=== PATIENT | female | born 1975 | race African-American/Black ===

== ENCOUNTER 2016-08-25 17:05 | Inpatient (IN) | payer OTHER ==
[~2016-08-25] VITALS: Ht 162.6 cm; Wt 61.5 kg
[2016-08-25 17:05] VITALS: BP 138/82; PULSE 128; RESP 22; TEMP 99.8; O2SAT 97
[2016-08-25] MEDS ORDERED: ONDANSETRON HCL 4 MG/2 ML VIAL IV PUSH ONE (17:15)
[2016-08-25] MEDS ORDERED: MORPHINE SULFATE 4 MG/ML INJ IV PUSH ONE ×2 (17:15→19:15)
[2016-08-25] MEDS ORDERED: AZITHROMYCIN INJ 500 MG in SODIUM CHLOR 0.9% 250 ML INJ 250 ML IV STA (17:16)
[2016-08-25] MEDS ORDERED: cefTRIAXone INJ 2,000 MG in SODIUM CHLORIDE 0.9% INJ 100 ML IV STA (17:16)
[2016-08-25] MEDS ORDERED: SODIUM CHLOR 0.9% 1000 ML INJ 1,000 ML IV SCH (17:17)
--- NOTE | 2016-08-25 17:32 | PD ---
HPI Chief Complaint: Chest Pain Time Seen by Provider: 17:27 Travel History International Travel<30 days: No Contact w/Intl Traveler<30days: No Traveled to known affect area: No History of Present Illness HPI 41-year-old female that presents to the ED for evaluation of severe right-sided chest pain and shortness of breath. Patient has a chronic history of HIV and has a CD4 count per patient in the 350s. Per patient she was diagnosed with pneumonia about a month ago with good results but she still is that the pneumonia is coming back she's been having runny nose and congestion for the past couple of days. Per patient today she was having body aches all over but her right-sided chest hurting more severely as the day progressed. For the past couple hours the pain has been severe which prompted her to call the ambulance. Per patient she was recently diagnosed with stage I lung cancer on that same side. Per patient she feels like she has pressure on her chest. She denies any fevers but states having some chills and sweats as well as weakness today. She's been drinking lots of water. She states been compliant with her medications include HIV medications. Per patient she has not undergone any chemotherapy or radiation and she has an appointment with the cardiothoracic surgeon to get the cancer removed next week. She states that her pain currently 7 out of 10. Gets worse with deep breaths. Nothing seems to be making better. Per patient she feels short of breath because of the pain. Denies any radiation the pain. Nausea or vomiting. No abdominal pain. PFSH Past Medical History Cancer: Yes Immune Disorder: Yes (HIV) ?: Unknown Social History Alcohol Use: No Tobacco Use: Yes Substance Use: No Allergies-Medications (Allergen,Severity, Reaction): Coded Allergies: Codeine (Verified Allergy, Intermediate, 08/25/16) nausea Review of Systems General / Constitutional: Positive: Chills, No: Fever, Weight Gain, Weight Loss, Other Eyes: No: Diploplia, Blurred Vision, Photophobia, Drainage, Redness, Foreign Body Sensation, Pain, Tearing, Blind Spots, Visual changes, Blindness, Other HENT: Positive: Sore Throat, Rhinitis, Congestion, No: Headaches, Vertigo, Lightheadedness, Rhinorrhea, Nosebleed, Neck Stiffness, Neck Pain, Masses, Gingival Bleeding, Dental Difficulties, Ear Discharge, Earache, Other Cardiovascular: Positive: Chest Pain or Discomfort, Tachycardia, No: Palpitations, Irregular Rhythm, Diaphoresis, Syncope, Dyspnea on exertion, Varicosities, Edema, Cyanosis, Varicosities, Phlebitis, Claudication, Other Respiratory: Positive: Cough, Shortness of Breath, Wheezing, No: Sneezing, Orthopnea, Hemoptysis, Stridor, Night Sweats, Pleuritic Pain, Other Gastrointestinal: No: Nausea, Vomiting, Diarrhea, Abdominal Pain, Hematemesis, Hematochezia, Constipation, Changes in Bowel Habits, Indigestion, Dysphagia, Loss of Appetite, Other Genitourinary: No: Urgency, Frequency, Dysuria, Nocturia, Hematuria, Decreased Urinary Output, Oliguria, Hesitancy, Dribbling, Incontinence, Pelvic Pain, Flank Pain, Dyspareunia, Discharge, Dysmenorrhea, Menorrhagia, Metorrhagia, Vaginal Bleeding, Other Musculoskeletal: Positive: Myalgias, Pain, No: Arthralgias, Limited ROM, Weakness, Cramping, Edema, Atrophy, Other Skin: No Rash, No Itching, No Dryness, No Lumps, No Hives, No Change in Pigmentation, No Change in nails, No Alopecia, No Lesions, No Breast Lumps, No Breast Tenderness, No Breast Swelling, No Other Neurologic: No: Weakness, Dizziness, Syncope, Focal Abnormalities, Coordination Problem, Tremor, Ataxia, Headache, Change in Mentation, Slurred Speech, Paresthesia, Incontinence, Seizures, Sensory Disturbance, Other Psychiatric: No: Anxiety, Depression, Suicidal Ideations, Disorder of Thought, Mood Disorder, Substance Abuse, Homicidal Ideation, Other Endocrine: No: Heat Intolerance, Cold Intolerance, Polyuria, Polydipsia, Other Hematologic/Lymphatic: No: Easy Bruising, Lymph Node Enlargement, Other Physical Exam Narrative GENERAL: SKIN: Warm and dry. HEAD: Atraumatic. Normocephalic. EYES: Pupils equal and round. No scleral icterus. No injection or drainage. ENT: No nasal bleeding or discharge. Mucous membranes pink and moist. Tongue is midline. No uvula deviation. NECK: Trachea midline. No JVD. CARDIOVASCULAR: Regular rate and rhythm. No murmurs, S3, S4. RESPIRATORY: No accessory muscle use. Clear to auscultation. Breath sounds equal bilaterally. GASTROINTESTINAL: Abdomen soft, non-tender, nondistended. Hepatic and splenic margins not palpable. MUSCULOSKELETAL: Extremities without clubbing, cyanosis, or edema. No obvious deformities. Full range of motion of the upper and lower extremities bilaterally with 2+ pulses. No lumbar, thoracic, cervical spine tenderness to palpation. NEUROLOGICAL: Awake and alert. No obvious cranial nerve deficits. Motor grossly within normal limits. Five out of 5 muscle strength in the arms and legs. Normal speech. PSYCHIATRIC: Appropriate mood and affect; insight and judgment normal. Data Data Last Documented VS Vital Signs Date Time Temp Pulse Resp B/P Pulse Ox O2 Delivery O2 Flow Rate FiO2 08/25/16 17:37 120 16 127/74 97 08/25/16 17:05 99.8 08/25/16 17:05 Room Air Orders Complete Blood Count With Diff (08/25/16 17:09) Basic Metabolic Panel (Bmp) (08/25/16 17:09) Ckmb (Isoenzyme) Profile (08/25/16 17:09) Troponin I (08/25/16 17:09) Prothrombin Time / Inr (Pt) (08/25/16 17:09) Act Partial Throm Time (Ptt) (08/25/16 17:09) Blood Culture (08/25/16 17:09) Magnesium (Mg) (08/25/16 17:09) Thyroid Stimulating Hormone (08/25/16 17:09) Chest, Single Ap (08/25/16 17:09) Iv Access Insert/Monitor (08/25/16 17:09) Ecg Monitoring (08/25/16 17:09) Oximetry (08/25/16 17:09) Ct Pulmonary Angiogram (08/25/16 ) Lactic Acid (08/25/16 17:11) Morphine Inj (Morphine Inj) (08/25/16 17:15) Ondansetron Inj (Zofran Inj) (08/25/16 17:15) Sputum Culture And Gram Stain (08/25/16 17:16) Ceftriaxone Inj (Rocephin Inj) (08/25/16 17:16) Azithromycin Inj (Zithromax Inj) (08/25/16 17:16) Sodium Chlor 0.9% 1000 Ml Inj (Ns 1000 M (08/25/16 17:17) Iohexol 350 Inj (Omnipaque 350 Inj) (08/25/16 18:08) Labs Laboratory Tests Test 08/25/16 08/25/16 17:15 17:20 White Blood Count 12.8 TH/MM3 Red Blood Count 4.04 MIL/MM3 Hemoglobin 14.3 GM/DL Hematocrit 41.3 % Mean Corpuscular Volume 102.2 FL Mean Corpuscular Hemoglobin 35.4 PG Mean Corpuscular Hemoglobin 34.6 % Concent Red Cell Distribution Width 16.5 % Platelet Count 176 TH/MM3 Mean Platelet Volume 8.1 FL Neutrophils (%) (Auto) 83.4 % Lymphocytes (%) (Auto) 13.4 % Monocytes (%) (Auto) 2.6 % Eosinophils (%) (Auto) 0.3 % Basophils (%) (Auto) 0.3 % Neutrophils # (Auto) 10.7 TH/MM3 Lymphocytes # (Auto) 1.7 TH/MM3 Monocytes # (Auto) 0.3 TH/MM3 Eosinophils # (Auto) 0.0 TH/MM3 Basophils # (Auto) 0.0 TH/MM3 CBC Comment DIFF FINAL Differential Comment Prothrombin Time 11.1 SEC Prothromb Time International 1.0 RATIO Ratio Activated Partial 23.6 SEC Thromboplast Time Sodium Level 134 MEQ/L Potassium Level 4.1 MEQ/L Chloride Level 99 MEQ/L Carbon Dioxide Level 27.0 MEQ/L Anion Gap 8 MEQ/L Blood Urea Nitrogen 11 MG/DL Creatinine 0.80 MG/DL Estimat Glomerular Filtration 95 ML/MIN Rate Random Glucose 84 MG/DL Calcium Level 8.6 MG/DL Magnesium Level 1.6 MG/DL Total Creatine Kinase 39 U/L Troponin I LESS THAN 0.02 NG/ML Thyroid Stimulating Hormone 1.260 uIU/ML 3rd Gen Lactic Acid Level 1.4 mmol/L [facility] Medical Decision Making Medical Screen Exam Complete: Yes Emergency Medical Condition: Yes Medical Record Reviewed: Yes Interpretation(s) CBC & BMP Diagram 08/25/16 17:[address] Angiography 08/25/16 0000 Signed Impressions: Service Date/Time: Thursday, August 25, 2016 18:01 - CONCLUSION: Dense consolidation in the right upper lobe characteristic of pneumonitis. Rounded pneumonia versus mass in the right lower lobe measuring 18 mm. No evidence of pulmonary embolism. Hu Seaman MD Troponin negative. EKG shows sinus tachycardia but no sign of acute ischemia or arrhythmia read by me and attending. Differential Diagnosis Chest pain versus pneumonia versus PE versus cancer pain versus sepsis versus STEMI versus an STEMI Narrative Course 41-year-old female that presents to the ED for evaluation of severe right-sided chest pain. Patient was properly examined and was found to have signs and symptoms consistent with appears to be chest pain. Concern for PE secondary to patient's history as well as sepsis from pneumonia. Recommendation at this time is for labs and imaging. Patient was given IV morphine and Zofran for pain. My attending Dr. Cazares evaluated the patient with me and agrees with plan. Labs and imaging show pneumonia. Patient will be admitted to the resident team. My attending spoke with residents who agreed to admission. Sepsis Criteria SIRS Criteria (2 or more): Heart rate over 90, WBC > 01529, < 4000 or > 10% bands Sepsis Criteria (SIRS+source): Infect source susp/known Criteria Outcome: Meets sepsis criteria Diagnosis Primary Impression: Pneumonia Qualified Code: J18.1 - Pneumonia of right middle lobe due to infectious organism Additional Impression: Sepsis Qualified Code: A41.9 - Sepsis, due to unspecified organism Admitting Information Admitting Physician Requests: Admit Alexy Rose Aug 25, 2016 17:32
[2016-08-25 17:37] VITALS: BP 127/74; PULSE 120; RESP 16; O2SAT 97
[2016-08-25 17:38] LABS: AUTOMATED NEUTROPHIL # 10.7 TH/MM3 (1.8-7.7); BASOPHIL % 0.3 % (0.0-2.0); EOSINOPHIL % 0.3 % (0.0-4.0); HEMATOCRIT 41.3 % (35.0-46.0); HEMO FLAGS DIFF FINAL; LYMPH % 13.4 % (9.0-44.0); LYMPHOCYTE # 1.7 TH/MM3 (1.0-4.8); MEAN CELL VOLUME 102.2 FL (80.0-100.0); MEAN CORPUSCULAR HEMOGLOBIN 35.4 PG (27.0-34.0); MEAN CORPUSCULAR HGB CONC 34.6 % (32.0-36.0); MONO % 2.6 % (0.0-8.0); NEUT % 83.4 % (16.0-70.0); PLATELET COUNT 176 TH/MM3 (150-450); RED BLOOD COUNT 4.04 MIL/MM3 (4.00-5.30); RED CELL DISTRIBUTION WIDTH 16.5 % (11.6-17.2); WHITE BLOOD COUNT 12.8 TH/MM3 (4.0-11.0)
[2016-08-25 17:48] LABS: APTT (PATIENT) 23.6 SEC (24.3-30.1); PROTHROMBIN TIME - PATIENT 11.1 SEC (9.8-11.6)
[2016-08-25 17:52] LABS: ANION GAP 8 MEQ/L (5-15); BLOOD UREA NITROGEN 11 MG/DL (7-18); CHLORIDE 99 MEQ/L (98-107); GLOMERULAR FILTRATION RATE 95 ML/MIN (>89); MAGNESIUM 1.6 MG/DL (1.5-2.5); POTASSIUM 4.1 MEQ/L (3.5-5.1); SODIUM (NA) 134 MEQ/L (136-145)
--- NOTE | 2016-08-25 17:54 | RADRPT ---
EXAM DATE/TIME: 08/25/2016 17:16 [facility] COMPARISON: No previous studies available for comparison. INDICATIONS : Chest pain starting today MEDICAL HISTORY : Carcinoma, lung. SURGICAL HISTORY : None. ENCOUNTER: Initial ACUITY: 1 day PAIN SCORE: 10/10 LOCATION: Center of chest FINDINGS: Study is abnormal. There is a wedge-shaped area of consolidation laterally in the right lung. The le ft lung is clear. Heart and pulmonary vascularity are normal. Portions of the bony skeleton visualiz ed are unremarkable. CONCLUSION: Abnormal chest as described above. Ac Maguire MD FACR on August 25, 2016 at 17:47 Board Certified Radiologist. This report was verified electronically.
--- NOTE | 2016-08-25 17:54 | PD ---
Data Data Last Documented VS Vital Signs Date Time Temp Pulse Resp B/P Pulse Ox O2 Delivery O2 Flow Rate FiO2 08/25/16 17:37 120 16 127/74 97 08/25/16 17:05 99.8 08/25/16 17:05 Room Air Orders Complete Blood Count With Diff (08/25/16 17:09) Basic Metabolic Panel (Bmp) (08/25/16 17:09) Ckmb (Isoenzyme) Profile (08/25/16 17:09) Troponin I (08/25/16 17:09) Prothrombin Time / Inr (Pt) (08/25/16 17:09) Act Partial Throm Time (Ptt) (08/25/16 17:09) Blood Culture (08/25/16 17:09) Magnesium (Mg) (08/25/16 17:09) Thyroid Stimulating Hormone (08/25/16 17:09) Chest, Single Ap (08/25/16 17:09) Iv Access Insert/Monitor (08/25/16 17:09) Ecg Monitoring (08/25/16 17:09) Oximetry (08/25/16 17:09) Ct Pulmonary Angiogram (08/25/16 ) Lactic Acid (08/25/16 17:11) Morphine Inj (Morphine Inj) (08/25/16 17:15) Ondansetron Inj (Zofran Inj) (08/25/16 17:15) Sputum Culture And Gram Stain (08/25/16 17:16) Ceftriaxone Inj (Rocephin Inj) (08/25/16 17:16) Azithromycin Inj (Zithromax Inj) (08/25/16 17:16) Sodium Chlor 0.9% 1000 Ml Inj (Ns 1000 M (08/25/16 17:17) Iohexol 350 Inj (Omnipaque 350 Inj) (08/25/16 18:08) Labs Laboratory Tests Test 08/25/16 08/25/16 17:15 17:20 White Blood Count 12.8 TH/MM3 Red Blood Count 4.04 MIL/MM3 Hemoglobin 14.3 GM/DL Hematocrit 41.3 % Mean Corpuscular Volume 102.2 FL Mean Corpuscular Hemoglobin 35.4 PG Mean Corpuscular Hemoglobin 34.6 % Concent Red Cell Distribution Width 16.5 % Platelet Count 176 TH/MM3 Mean Platelet Volume 8.1 FL Neutrophils (%) (Auto) 83.4 % Lymphocytes (%) (Auto) 13.4 % Monocytes (%) (Auto) 2.6 % Eosinophils (%) (Auto) 0.3 % Basophils (%) (Auto) 0.3 % Neutrophils # (Auto) 10.7 TH/MM3 Lymphocytes # (Auto) 1.7 TH/MM3 Monocytes # (Auto) 0.3 TH/MM3 Eosinophils # (Auto) 0.0 TH/MM3 Basophils # (Auto) 0.0 TH/MM3 CBC Comment DIFF FINAL Differential Comment Prothrombin Time 11.1 SEC Prothromb Time International 1.0 RATIO Ratio Activated Partial 23.6 SEC Thromboplast Time Sodium Level 134 MEQ/L Potassium Level 4.1 MEQ/L Chloride Level 99 MEQ/L Carbon Dioxide Level 27.0 MEQ/L Anion Gap 8 MEQ/L Blood Urea Nitrogen 11 MG/DL Creatinine 0.80 MG/DL Estimat Glomerular Filtration 95 ML/MIN Rate Random Glucose 84 MG/DL Calcium Level 8.6 MG/DL Magnesium Level 1.6 MG/DL Total Creatine Kinase 39 U/L Troponin I LESS THAN 0.02 NG/ML Thyroid Stimulating Hormone 1.260 uIU/ML 3rd Gen Lactic Acid Level 1.4 mmol/L MDM Supervised Visit with RADHA: Yes Narrative Course I, Dr. Villa, have reviewed the advance practice practioner's documentation and am in agreement, met with the patient face to face, made the diagnosis, and the medical decision making was done by me. *My assessment and Findings: 41-year-old female with history of HIV last CD4 count in the 350s here with complaint of increasing cough, cold, chest congestion and right sided chest pain. Patient was apparently diagnosed with pneumonia approximately one month ago and recently diagnosed with lung cancer on the right side as well. She notes a pressure, sharp pain in the right side of the chest worse with movement or deep inspiration. Her cough has been more productive but no documented fevers. She has not yet undergone any chemotherapy or radiation. Patient is afebrile here but is tachycardic in the 120s to 130s, slightly tachypneic with coarse breath sounds on both sides, harsh cough productive of clear sputum. Regular rhythm. Differential includes pneumonia, sepsis, pulmonary embolism, pleurisy, lung cancer, ACS,. Patient placed on monitor, IV established and blood obtained. Given fluids and empirically treated with Rocephin and is a throat for pulmonary source sepsis. Portable chest x-ray obtained that by my read shows right sided mass and/or pneumonia. I do not have any old chest x-ray on file with which to compare. Laboratory workup notable for WBC 17.8. CT pulmonary exam showed pneumonia. Rounded pneumonia versus mass in the right lower lobe measuring 18 mm. I suspect that this is her likely underlying lung cancer. Think fully no evidence of PE. Patient will be admitted for further management. Critical Care Narrative Aggregate critical care time was 35 minutes. Time to perform other separately billable procedures was not included in the critical care time. My time did not include minutes spent treating any other patients simultaneously or on activities that did not directly contribute to the patient's treatment. The services I provided to this patient were to treat and/or prevent clinically significant deterioration that could result in: Cardiopulmonary decompensation, , disability I provided critical care services requiring my management, as noted below: Chart data review, documentation time, medication orders and management, vital sign assessments/reviewing monitor data, ordering and reviewing lab tests, ordering and interpreting/reviewing x-rays and diagnostic studies, care of the patient and discussion of the patient with the admitting physicians. Sepsis Criteria SIRS Criteria (2 or more): Heart rate over 90, RR > 20 or PaCO2 < 32, WBC > 96032, < 4000 or > 10% bands Sepsis Criteria (SIRS+source): Infect source susp/known Criteria Outcome: Meets SIRS criteria, Meets sepsis criteria Diagnosis Primary Impression: Sepsis Qualified Code: A41.9 - Sepsis, due to unspecified organism Additional Impression: Pneumonia Qualified Code: J18.1 - Pneumonia of right middle lobe due to infectious organism Admitting Information Admitting Physician Requests: Admit Shaniqua Villa MD Aug 25, 2016 17:54
[2016-08-25] MEDS ORDERED: IOHEXOL 350 MG/ML 10 ML VIAL (for RAD DIAG) IV ONE (18:08)
[2016-08-25 18:15] LABS: CREATINE KINASE 39 U/L (26-192)
--- NOTE | 2016-08-25 18:33 | RADRPT ---
EXAM DATE/TIME: 08/25/2016 18:01 [facility] COMPARISON: No previous studies available for comparison. INDICATIONS : Right sided chest pain with shortness of breath. IV CONTRAST: 75 cc Omnipaque 350 (iohexol) IV RADIATION DOSE: CTDIvol (mGy) MEDICAL HISTORY : HIV. Hypertension. Carcinoma, lung. SURGICAL HISTORY : None. ENCOUNTER: Initial ACUITY: 2 days PAIN SCALE: 9/10 LOCATION: Right chest Patient experienced a reaction consisting of . TECHNIQUE: Volumetric scanning of the chest was performed using a pulmonary embolism protocol MIP images were re constructed. Using automated exposure control and adjustment of the mA and/or kV according to patien t size, radiation dose was kept as low as reasonably achievable to obtain optimal diagnostic quality images. FINDINGS: PULMONARY ARTERIES: No filling defects are seen in the pulmonary arteries through the segmental level. LUNGS: Consolidating airspace disease is identified in the inferior one third of the right upper lobe. A mas slike rounded area consolidation measuring 18 mm is identified in the mid right lower lobe. The left lung is clear.PLEURAE: There is no pleural thickening or pleural effusion. MEDIASTINUM: There is good visualization of the great vessels of the middle mediastinum. No evidence of mediastin al or hilar adenopathy/mass. MUSCULOSKELETAL: Within normal limits for patient age. MISCELLANEOUS: The visualized upper abdominal organs demonstrate no acute abnormality. CONCLUSION: Dense consolidation in the right upper lobe characteristic of pneumonitis. Rounded pneumonia versus mass in the right lower lobe measuring 18 mm. No evidence of pulmonary embolism. Hu Seaman MD on August 25, 2016 at 18:27 Board Certified Radiologist. This report was verified electronically.
[2016-08-25 18:48] VITALS: BP 135/78; PULSE 125; RESP 18; O2SAT 95
[2016-08-25 20:00] VITALS: BP 126/68; PULSE 124; RESP 18; O2SAT 96
--- NOTE | 2016-08-25 20:16 | HHI.HP ---
[facility] Service Family Medicine Primary Care Physician Jaime Perales MD Admission Diagnosis sepsis, pneumonia Diagnoses: International Travel<30 Days: No Contact w/Intl Traveler<30days: No Known Affected Area: No History of Present Illness 41 year old female with PMH significant for HIV diagnosed in 1996 with most recent CD4 count per patient 383 drawn about one month ago, patient presented to the ED due to severe right-sided chest pain and shortness of breath. She states about four days ago her symptoms started with head and nasal congestion as well as a cough productive of yellow sputum. She states her symptoms have progressively worsened since then with her chest pain being significant enough prompting her to call an ambulance earlier today. She does report a small amount of hemoptysis while here in the ED, denies any hemoptysis prior to this. Reports a subjective low-grade fever also here in ED, however denies any fevers earlier in the week. Her chest pain she states is both right lower and right upper chest, about a 7/10, also reports right upper back pain, chest pain was pleuritic but improving now. Denies left-sided chest pain. Denies palpitations or diaphoresis or pain radiating elsewhere. Denies abdominal pain, no N/V or diarrhea. Denies hematuria or visible blood in stool. Dr. Muñoz is her infectious disease physician. She states she takes Genvoya and Prezista each night. She also follows with Dr. Florez, pulmonology. She was treated by Dr. Florez for pneumonia about one month ago however she states she never fully recovered from this. She states she was found to have stage I lung cancer while being worked up for the pneumonia last month. She is now following with Dr. Colmenares her oncologist after her lung mass was found. She has not yet started chemotherapy or radiation therapy. Review of Systems Constitutional: COMPLAINS OF: Fever, DENIES: Chills, Change in appetite, Night Sweats Eyes: DENIES: Blurred vision, Double Vision Ears, nose, mouth, throat: COMPLAINS OF: Nasal discharge, Running Nose Respiratory: COMPLAINS OF: Cough, Hemoptysis, Sputum production, Shortness of breath Cardiovascular: COMPLAINS OF: Chest pain, DENIES: Palpitations, Lower Extremity Edema Gastrointestinal: DENIES: Abdominal pain, Black stools, Bloody stools, Constipation, Diarrhea, Nausea, Vomiting Genitourinary: DENIES: Hematuria, Dysuria Integumentary: DENIES: Rash Neurologic: DENIES: Headache Past Family Social History Past Medical History HIV diagnosed in 1996 Past Surgical History 2 previous C-sections Allergies: Coded Allergies: Codeine (Verified Allergy, Intermediate, 08/25/16) nausea Family History Mother: alive, ~60yo, HTN Father: alive, late 60s, prostate cancer Social History Tobacco: ~3 cigarettes daily for many years Etoh: denies Illicit drug use: denies Lives in [facility] with son Physical Exam Vital Signs Vital Signs Date Time Temp Pulse Resp B/P Pulse Ox O2 Delivery O2 Flow Rate FiO2 08/25/16 18:48 125 18 135/78 95 08/25/16 17:37 120 16 127/74 97 08/25/16 17:05 99.8 128 22 138/82 97 08/25/16 17:05 128 22 97 Room Air Physical Exam GENERAL: In a moderate amount of distress secondary to chest pain. Appears tired. NEURO: AOx3. Speech is soft, not slurred. 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 SKIN: Warm and dry. No rashes or erythema. HEAD: Normocephalic. Atraumatic. EYES: PERRL. EOMI. No scleral icterus. No injection or drainage. ENT: No nasal drainage. Moist mucous membranes. No oral ulcers or lesions. NECK: Supple, trachea midline. No JVD or lymphadenopathy. CARDIOVASCULAR: Tachycardic rate, regular rhythm without murmurs, rubs, or gallops. Peripheral pulses 2+. Capillary refill < 2 seconds. RESPIRATORY: RR about 20-22 per min. No accessory muscle use. Poor inspiratory effort. Decreased aeration throughout. Coarse breath sounds in right lung field. GASTROINTESTINAL: Abdomen soft, nontender, nondistended, normal BS. No organomegaly or masses appreciated. No rebound tenderness. No guarding. MUSCULOSKELETAL: No edema, cyanosis, or clubbing. Normal range of motion. BACK: Nontender without obvious deformity. Laboratory Laboratory Tests Test 08/25/16 08/25/16 17:15 17:20 White Blood Count 12.8 Red Blood Count 4.04 Hemoglobin 14.3 Hematocrit 41.3 Mean Corpuscular Volume 102.2 Mean Corpuscular Hemoglobin 35.4 Mean Corpuscular Hemoglobin 34.6 Concent Red Cell Distribution Width 16.5 Platelet Count 176 Mean Platelet Volume 8.1 Neutrophils (%) (Auto) 83.4 Lymphocytes (%) (Auto) 13.4 Monocytes (%) (Auto) 2.6 Eosinophils (%) (Auto) 0.3 Basophils (%) (Auto) 0.3 Neutrophils # (Auto) 10.7 Lymphocytes # (Auto) 1.7 Monocytes # (Auto) 0.3 Eosinophils # (Auto) 0.0 Basophils # (Auto) 0.0 CBC Comment DIFF FINAL Differential Comment Prothrombin Time 11.1 Prothromb Time International 1.0 Ratio Activated Partial 23.6 Thromboplast Time Sodium Level 134 Potassium Level 4.1 Chloride Level 99 Carbon Dioxide Level 27.0 Anion Gap 8 Blood Urea Nitrogen 11 Creatinine 0.80 Estimat Glomerular Filtration 95 Rate Random Glucose 84 Calcium Level 8.6 Magnesium Level 1.6 Total Creatine Kinase 39 Troponin I LESS THAN 0.02 Thyroid Stimulating Hormone 1.260 3rd Gen Lactic Acid Level 1.4 Date/Time Procedure Status Source Growth 08/25/16 17:20 Aerobic Blood Culture Received Blood Peripheral Pending 08/25/16 17:20 Anaerobic Blood Culture Received Blood Peripheral Pending 08/25/16 17:15 Gram Stain - Final Resulted Sputum Expectorated Sputum 08/25/16 17:15 Sputum Culture Resulted Sputum Expectorated Sputum Pending Result Diagram: 08/25/16 1715 08/25/16 1715 Septic Shock Reassessment Heart: Other (Tachycardic, regular rhythm) Lungs: Course, Crackles Skin: Warm, Dry Peripheral Pulses: Bounding Right Radial Bounding Left Radial Bounding Right Dorsalis Pedis Bounding Left Dorsalis Pedis Bounding Right Posterior Tibial Bounding Left Posterior Tibial Capillary Refill: <2 seconds Assessment and Plan Assessment and Plan 41 year old female with PMH significant for HIV diagnosed in 1996 with most recent CD4 count per patient 383 drawn about one month ago presented to the ED due to right-sided chest pain, shortness of breath, productive cough and subjective fever. She will be admitted and managed for the following: Code Status Full code Discussed Condition With Dr. Duggan Problem List: (1) Sepsis Status: Acute Plan: Patient will be admitted for sepsis due to pneumonia (2) Pneumonia Status: Acute Plan: - Dyspnea, right-sided chest pain, cough, subjective fever c/w pneumonia - Afebrile in ED, BP within normal limits, tachycardic up to 120s, tachypneic to low 20s - O2 sats are appropriate on room air - Leukocytosis to 12.8 with a left shift, lactic acid 1.4 - EKG significant for sinus tachycardia, likely benign early repolarizations in V3 and V4 - CXR shows a wedge-shaped area of consolidation in the right lung; left lung is clear - CTPA shows a dense consolidation in the right upper lobe characteristic of pneumonitis, rounded pneumonia versus mass in right lower lobe; no evidence for pulmonary embolism - Blood culture x2 and sputum culture pending - Check urinary legionella and pneumococcal antigens - Received 1L NS bolus in ED - Will give another 1L NS bolus - Continue with 1.5 x maintenance IVF with NS at 145 cc/hr - Rocephin 2gm IV and azithromycin 500 mg IV given in ED - Continue Rocephin 2 gm IV q24h - Continue azithromycin 500 mg po daily - Morphine 4 mg IV q4h prn pain 6-10 - Tylenol prn fever (3) Lung mass Status: Acute Plan: - Patient states she will follow with Dr. Colmenares, oncology, for further evaluation and treatment regarding recent diagnosis of lung cancer (4) HIV (human immunodeficiency virus infection) Status: Chronic Plan: - Last CD4 count per patient was 383 taken one month ago - Continue home antiretroviral medications Genvoya and Prezista (5) Nutrition, metabolism, and development symptoms Status: Acute Plan: Fluids: NS at 145 cc/hr Electrolytes: Na 134, lytes otherwise WNLs, continue to monitor Nutrition: Regular diet DVT PPX: Lovenox 40 mg subq daily Depression: Continue Prozac 20 mg po daily Physician Certification 2 Midnight Certification Type: Admission for Inpatient Services Order for Inpatient Services The services are ordered in accordance with Medicare regulations or non- Medicare payer requirements, as applicable. In the case of services not specified as inpatient-only, they are appropriately provided as inpatient services in accordance with the 2-midnight benchmark. Estimated LOS (days): 2 days is the estimated time the patient will need to remain in the hospital, assuming treatment plan goals are met and no additional complications. Post-Hospital Plan: Home Problem Qualifiers (1) Sepsis: Qualified Code: A41.9 - Sepsis, due to unspecified organism (2) Pneumonia: Qualified Code: J18.1 - Pneumonia of right middle lobe due to infectious organism Omid Armando MD R1 Aug 25, 2016 20:16
[2016-08-25] MEDS ORDERED: ONDANSETRON HCL 4 MG/2 ML VIAL IVP PRN (21:00)
[2016-08-25] MEDS ORDERED: SODIUM CHLORIDE 0.9% FLUSH 5 ML FLUSH FLUSH PRN (21:00)
[2016-08-25] MEDS ORDERED: NALOXONE HCL 0.4 MG/ML AMP IV PRN (21:00)
[2016-08-25] MEDS ORDERED: ACETAMINOPHEN 325 MG TAB PO PRN (21:00)
[2016-08-25] MEDS: SODIUM CHLORIDE 0.9% FLUSH 5 ML FLUSH FLUSH SCH (21:25)
[2016-08-25] MEDS: SODIUM CHLOR 0.9% 1000 ML INJ 1,000 ML IV SCH (21:26)
[2016-08-25] MEDS: ENOXAPARIN SODIUM 40 MG/0.4 ML SYRINGE SQ SCH (21:28)
[2016-08-25] MEDS ORDERED: KETOROLAC TROMETHAMINE 30 MG/ML (IVP) VIAL IV PUSH ONE (21:30)
[2016-08-25 22:00] VITALS: BP 120/63; PULSE 122; RESP 18; O2SAT 97
[2016-08-25] MEDS ORDERED: SODIUM CHLOR 0.9% 1000 ML INJ 1,000 ML IV ONE (23:00)
[2016-08-25] MEDS ORDERED: MORPHINE SULFATE 4 MG/ML INJ IV PUSH PRN (23:16)
[2016-08-26] VITALS (15 sets, daily range): BP systolic 79–138; BP diastolic 48–95; PULSE 90–125; RESP 22–34; TEMP 96.9–98.5; O2SAT 88–100
[2016-08-26] MEDS ORDERED: KETOROLAC TROMETHAMINE 30 MG/ML (IVP) VIAL IV PUSH PRN (01:30)
[2016-08-26] MEDS ORDERED: methylPREDNISolone SOD SUCC 125 MG/2 ML VIAL IV PUSH STA (01:52)
[2016-08-26] MEDS ORDERED: SODIUM CHLORID 0.9% 500 ML INJ 500 ML IV STA ×2 (01:52→03:13)
--- NOTE | 2016-08-26 02:05 | HHI.FPPN ---
Addendum to progress note ADDENDUM Reason for addendum: Additonal documentation Additional information S: Paged at ~01:45 from nurse with concern as the patient had a blood pressure of 80/49 with pulse in the low 120s, tachypneic rate about 20-22, and patient requiring 4L of oxygen via NC to maintain sats > 92%. Nurse reported that patient is still complaining of right-sided chest pain, but otherwise is with no clinical change from when her blood pressure was 120s/60s earlier. On evaluation, patient is able to talk in full sentences, is tearful and is concerned because of her low blood pressure. She denies any left-sided chest pain, no palpitations. She is not diaphoretic. O: BP 80/49 Pulse 124 RR 18-20 POx 94-95% on 4L O2 via NC Temp 96.9 F GEN: Lying in bed, mild amount of distress NEURO: AOx3. Normal speech. 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 SKIN: Warm and dry. No rashes or erythema. CV: Tachycardic rate, regular rhythm without murmurs, rubs, or gallops. Peripheral pulses 2+. RESP: No accessory muscle use. Decreased aeration throughout. Coarse breath sounds in right lung field. A/P: 41 year old female with PMH significant for HIV diagnosed in 1996 with most recent CD4 count per patient 383 drawn about one month ago admitted meeting sepsis criteria due to pneumonia, now with hypotension of 80/49, continued tachycardia, and increasing oxygen requirement. - Obtain stat CBC, CMP, lactic acid, and troponin - Repeat EKG obtained and reviewed, significant for sinus tachycardia - Will broaden antibiotic coverage with cefepime and vancomycin, continue azithromycin - Patient has received two 1L ns boluses, plus additional 500 cc bolus - Give additional 1.5L bolus of ns - Continue maintenance IVF with ns at 145 cc/hr - Add IV albumin 25 gm - Solumedrol 125 mg IV now - Will monitor clinical status closely and if vital signs do not improve patient will likely need to be transferred to the ICU for closer monitoring Omid Armando MD R1 Aug 26, 2016 02:05
[2016-08-26] MEDS: ACETAMINOPHEN 325 MG TAB PO SCH ×3 (02:06→12:50)
[2016-08-26] MEDS ORDERED: CEFEPIME INJ 2,000 MG in SODIUM CHLORIDE 0.9% INJ 100 ML IV STA (03:13)
[2016-08-26] MEDS ORDERED: SODIUM CHLOR 0.9% 1000 ML INJ 1,000 ML IV STA (03:13)
[2016-08-26] MEDS ORDERED: VANCOMYCIN INJ 1,250 MG in SODIUM CHLOR 0.9% 250 ML INJ 250 ML IV STA (03:13)
[2016-08-26] MEDS ORDERED: ALBUMIN HUMAN 25% 25 GM/100 ML BAGP IV ONE (03:15)
[2016-08-26 03:16] LABS: AUTOMATED NEUTROPHIL # 7.4 TH/MM3 (1.8-7.7); BASOPHIL % 0.2 % (0.0-2.0); EOSINOPHIL % 0.2 % (0.0-4.0); HEMATOCRIT 33.7 % (35.0-46.0); LYMPHOCYTE # 1.4 TH/MM3 (1.0-4.8); MEAN CELL VOLUME 102.2 FL (80.0-100.0); MEAN CORPUSCULAR HEMOGLOBIN 35.9 PG (27.0-34.0); MEAN CORPUSCULAR HGB CONC 35.2 % (32.0-36.0); MONO % 3.1 % (0.0-8.0); NEUT % 81.5 % (16.0-70.0); PLATELET COUNT 148 TH/MM3 (150-450); RED CELL DISTRIBUTION WIDTH 16.6 % (11.6-17.2); WHITE BLOOD COUNT 9.1 TH/MM3 (4.0-11.0)
[2016-08-26 03:34] LABS: HEMO FLAGS AUTO DIFF
[2016-08-26 03:37] LABS: ALT (GPT) 14 U/L (10-53); ANION GAP 11 MEQ/L (5-15); AST (GOT) 10 U/L (15-37); BICARBONATE 18.6 MEQ/L (21.0-32.0); BLOOD UREA NITROGEN 16 MG/DL (7-18); CHLORIDE 110 MEQ/L (98-107); GLOMERULAR FILTRATION RATE 52 ML/MIN (>89); POTASSIUM 3.4 MEQ/L (3.5-5.1); SODIUM (NA) 140 MEQ/L (136-145)
[2016-08-26 03:38] LABS: ALKALINE PHOSPHATASE 47 U/L (45-117); CALCIUM-PROTEIN CORRECTED 7.9 MG/DL (8.5-10.1); TOTAL BILIRUBIN ADULT 0.6 MG/DL (0.2-1.0)
[2016-08-26 04:47] LABS: BANDS 4 % (0-6); METAMYELOCYTES 6 % (0-1); NEUTROPHIL # MANUAL DIFF 7.6 TH/MM3 (1.8-7.7); POLYS (SEG NEUTROPHILS) 73 % (16-70); WBC DIFF SAMPLE 100
[2016-08-26 04:48] LABS: PLATELET ESTIMATE SMEAR LOW (NORMAL); PLATELET MORPHOLOGY NORMAL (NORMAL); SCAN/DIFF FINAL DIFF MANUAL
[2016-08-26] MEDS ORDERED: RESP: ALBUTEROL 2.5 MG/3 ML NEB (PRN) NEB (05:00)
[2016-08-26] MEDS ORDERED: RESP: ALBUTEROL 2.5 MG/IPRATROPIUM 0.5 MG NEB (SCH) NEB STA (05:00)
[2016-08-26] MEDS ORDERED: POTASSIUM CHLORIDE 20 MEQ CONTROLLED RELEASE TAB PO ONE (05:00)
[2016-08-26] MEDS ORDERED: MISCELLANEOUS NURSING INFORMATION XX SCH ×2 (05:15→11:30)
[2016-08-26] MEDS ORDERED: MAGNESIUM SULFATE INJ 2 GM in SODIUM CHLORIDE 0.9% INJ 96 ML IV PRN (05:15)
[2016-08-26] MEDS ORDERED: MAGNESIUM SULFATE INJ 4 GM in SODIUM CHLORIDE 0.9% INJ 92 ML IV PRN (05:15)
[2016-08-26] MEDS ORDERED: POTASSIUM CHLOR 40 MEQ PREMIX 100 ML IV PRN ×2 (05:15)
[2016-08-26] MEDS ORDERED: MAGNESIUM OXIDE 400 MG TAB PO PRN (05:15)
[2016-08-26] MEDS ORDERED: CHLORHEXIDINE GLUCONATE 2 % 1 PACK (2 CLOTHS) TOP PRN ×2 (05:15→11:30)
[2016-08-26] MEDS ORDERED: POTASSIUM PHOSPHATE MONOBASIC 500 MG TAB PO PRN (05:15)
[2016-08-26] MEDS ORDERED: SODIUM PHOSPHATE INJ 30 MMOL in SODIUM CHLOR 0.9% 250 ML INJ 240 ML IV PRN (05:15)
[2016-08-26] MEDS ORDERED: POTASSIUM CHLOR 20 MEQ PREMIX 100 ML IV PRN ×2 (05:15)
[2016-08-26] MEDS ORDERED: POTASSIUM PHOSPHATE INJ 30 MMOL in SODIUM CHLOR 0.9% 250 ML INJ 250 ML IV PRN (05:15)
[2016-08-26] MEDS ORDERED: POTASSIUM PHOSPHATE MONOBASIC 500 MG TAB PO/TUBE PRN (05:15)
[2016-08-26] MEDS ORDERED: POTASSIUM CL 40 MEQ/30 ML LIQ UDC PO/TUBE PRN ×2 (05:15)
--- NOTE | 2016-08-26 05:17 | HHI.FPPN ---
Addendum to progress note ADDENDUM Reason for addendum: Additonal documentation Additional information Patient reevaluated at ~04:30. Clinical status is unchanged from earlier this morning. She states she is still short of breath. No chest pain or palpitations , visual changes, lightheadedness or dizziness. Blood pressure remains low at 82 /48 with pulse of 116 bpm. Oxygen via NC was increased to 6L per min and now satting 90%. - Repeat BMP concerning for increase in creatinine to 1.34 from 0.80 on admission, CO2 of 18.6 - Lactic acid up to 2.3 - Repeat troponin negative - We will transfer her to the [facility] as she is high risk for decompensation and she remains hypotensive after additional fluid boluses and albumin and has increasing oxygen requirement - Obtain VBG; repeat cbc and bmp at 07:00 - Oxygen via non-rebreather if not maintaining O2 sats > 92% on NC - Monitor I/Os Omid Armando MD R1 Aug 26, 2016 05:16
[2016-08-26] MEDS: SODIUM CHLOR 0.9% 1000 ML INJ 1,000 ML IV SCH ×2 (06:01→18:23)
[2016-08-26 06:35] LABS: BLOOD GAS VENOUS BASE EXCESS -11.4 mmol/L (-2-2); BLOOD GAS VENOUS HCO3 13 mmol/L (22-26); BLOOD GAS VENOUS O2 CONTENT 13.9 Vol % (9.0-17.0); BLOOD GAS VENOUS O2 HGB SAT 85 % (70-76); BLOOD GAS VENOUS PCO2 24 mmHg (44-48); BLOOD GAS VENOUS PO2 59 mmHg (35-40); BLOOD GAS VENOUS pH 7.35 (7.360-7.400); TEMP CORR TO 98.6
[2016-08-26 06:36] LABS: CRITICAL VALUE YES; DRAW SITE IV; FIO2 50 %; LITER FLOW 6 L/M; OXYGEN DEVICE Venti Mask; STAT YES
--- NOTE | 2016-08-26 06:53 | RADRPT ---
EXAM DATE/TIME: 08/26/2016 05:57 [facility] COMPARISON: CHEST SINGLE AP, August 25, 2016, 17:16. INDICATIONS : Shortness of breath, possible pulmonary disease. MEDICAL HISTORY : Carcinoma, lung. SURGICAL HISTORY : None. ENCOUNTER: Subsequent ACUITY: 2 days PAIN SCORE: 0/10 LOCATION: Bilateral chest FINDINGS: There is worsening consolidative change present bilaterally now fairly extensively involving the righ t upper lobe and involving the lung bases bilaterally. The cardiomediastinal contours are grossly sta ble. CONCLUSION: Worsening airspace disease Juma Hill MD on August 26, 2016 at 6:51 Board Certified Radiologist. This report was verified electronically.
[2016-08-26] MEDS: RESP: ALBUTEROL 2.5 MG/IPRATROPIUM 0.5 MG NEB (SCH) NEB ×2 (07:39→22:00)
[2016-08-26] MEDS: guaiFENesin E.R. 600 MG TAB PO SCH ×2 (08:16→20:27)
[2016-08-26] MEDS: PANTOPRAZOLE SOD 40 MG DELAYED RELEASE TAB PO SCH (08:17)
[2016-08-26] MEDS: FLUoxetine HCL 20 MG CAP PO SCH (08:17)
[2016-08-26] MEDS: SODIUM CHLORIDE 0.9% FLUSH 5 ML FLUSH FLUSH SCH ×2 (08:18→20:27)
[2016-08-26] MEDS: methylPREDNISolone SOD SUCC 40 MG/1 ML VIAL IV PUSH SCH ×3 (08:37→20:26)
[2016-08-26 09:23] LABS: AUTOMATED NEUTROPHIL # 10.9 TH/MM3 (1.8-7.7); BASOPHIL % 0.1 % (0.0-2.0); EOSINOPHIL % 0.1 % (0.0-4.0); LYMPH % 4.5 % (9.0-44.0); LYMPHOCYTE # 0.5 TH/MM3 (1.0-4.8); MEAN CORPUSCULAR HEMOGLOBIN 35.8 PG (27.0-34.0); MEAN CORPUSCULAR HGB CONC 34.8 % (32.0-36.0); NEUT % 93.3 % (16.0-70.0); PLATELET COUNT 126 TH/MM3 (150-450); RED CELL DISTRIBUTION WIDTH 16.8 % (11.6-17.2); WHITE BLOOD COUNT 11.6 TH/MM3 (4.0-11.0)
[2016-08-26 09:28] LABS: HEMO FLAGS AUTO DIFF
--- NOTE | 2016-08-26 09:47 | HHI.HP ---
[facility] Service Family Medicine Primary Care Physician Jaime Perales MD Admission Diagnosis sepsis, pneumonia Diagnoses: (1) Sepsis Diagnosis: Principal (2) Pneumonia Diagnosis: Principal (3) Lung mass Diagnosis: Principal (4) HIV (human immunodeficiency virus infection) Diagnosis: Principal (5) Nutrition, metabolism, and development symptoms Diagnosis: Principal International Travel<30 Days: No Contact w/Intl Traveler<30days: No Known Affected Area: No History of Present Illness Ms Sanabria is a 41 year old female with PMH significant for HIV diagnosed in 1996 with most recent CD4 count per patient 383 drawn about one month ago, patient presented to the ED due to severe right-sided chest pain and shortness of breath. She states about four days prior to admission her symptoms started with head and nasal congestion as well as a cough productive of yellow sputum. She states her symptoms have progressively worsened since then with her chest pain being significant enough prompting her to call an ambulance. She does report a small amount of hemoptysis while here in the ED, denies any hemoptysis prior to this. Reports a subjective low-grade fever also here in ED, however denies any fevers earlier in the week. Her chest pain she stated in the ED is both right lower and right upper chest, about a 7/10, also reports right upper back pain, chest pain was pleuritic but improving now. Denies left-sided chest pain. Denies palpitations or diaphoresis or pain radiating elsewhere. Denies abdominal pain, no N/V or diarrhea. Denies hematuria or visible blood in stool. Dr. Muñoz is her infectious disease physician. She states she takes Genvoya and Prezista each night. She also follows with Dr. Florez, pulmonology. She was treated by Dr. Florez for pneumonia about one month ago however she states she never fully recovered from this. She states she was found to have stage I lung cancer while being worked up for the pneumonia last month. She is now following with Dr. Colmenares her oncologist after her lung mass was found. She has not yet started chemotherapy or radiation therapy. Overnight her BPs dropped from 120s systolic in the ED ti as low as 80s/40s. She received 4 liters total of fluids and is more stable this am. She had also worsened overnight and at one time was on a nonrebreather but now is on 6 liter nasal canula. She is more comfortable with her pain and was evaluated for a PE and is clear. She is very SOB even with just standing up in her room. She was transferred to [facility] overnight and appreciate help of Dr Orozco her [employer] Manager Architect as she could get worse with her immunocompromised state and pneumonia/sepsis. Review of Systems Constitutional: COMPLAINS OF: Diaphoretic episodes, Fatigue, Fever, Chills, Night Sweats Respiratory: COMPLAINS OF: Cough, Hemoptysis, Shortness of breath Cardiovascular: COMPLAINS OF: Chest pain, Dyspnea on Exertion, DENIES: Lower Extremity Edema Gastrointestinal: DENIES: Abdominal pain Integumentary: DENIES: Abnormal pigmentation Psychiatric: DENIES: Confusion Other Constitutional: COMPLAINS OF: Fever, DENIES: Change in appetite Eyes: DENIES: Blurred vision, Double Vision Ears, nose, mouth, throat: COMPLAINS OF: Nasal discharge, Running Nose Respiratory: COMPLAINS OF: Cough, Hemoptysis, Sputum production, Shortness of breath Cardiovascular: COMPLAINS OF: Chest pain, DENIES: Palpitations, Lower Extremity Edema Gastrointestinal: DENIES: Abdominal pain, Black stools, Bloody stools, Constipation, Diarrhea, Nausea, Vomiting Genitourinary: DENIES: Hematuria, Dysuria Integumentary: DENIES: Rash Neurologic: DENIES: Headache Past Family Social History Past Medical History HIV diagnosed in 1996 lung cancer found in past month as yet untreated Past Surgical History 2 previous C-sections Allergies: Coded Allergies: Codeine (Verified Allergy, Intermediate, 08/25/16) nausea Family History Mother: alive, ~60yo, HTN Father: alive, late 60s, prostate cancer Social History Tobacco: ~3 cigarettes daily for many years Etoh: denies Illicit drug use: sam Lives in [place] with son her mother is a nurse and would be her decision maker per her request if she could not speak for herself. She would agree to be placed on a ventilator if needed in the short term but not want to be "kept on one" for an extended period of time Physical Exam Vital Signs Vital Signs Date Time Temp Pulse Resp B/P Pulse Ox O2 Delivery O2 Flow Rate FiO2 08/26/16 07:40 95 Venturi Mask 6.00 50 08/26/16 06:30 97.8 115 34 91/59 94 08/26/16 06:30 97.8 115 34 91/59 94 08/26/16 06:16 93 Venturi Mask 6.00 50 08/26/16 04:36 98.5 116 22 82/48 88 08/26/16 01:40 125 80/49 94 08/26/16 01:25 96.9 124 24 79/49 90 08/25/16 22:00 122 18 120/63 97 08/25/16 20:00 124 18 126/68 96 08/25/16 18:48 125 18 135/78 95 08/25/16 17:37 120 16 127/74 97 08/25/16 17:05 99.8 128 22 138/82 97 08/25/16 17:05 128 22 97 Room Air Physical Exam GENERAL: In a moderate amount of distress secondary to chest pain. Appears tired. Very tachypneic with exertion of any kind, holding her O2 sats when at rest. Thin but not cachectic. NEURO: AOx3. Speech is soft, not slurred. contact lens blocker grossly intact. SKIN: Warm and dry. No rashes or erythema. HEAD: Normocephalic. Atraumatic. EYES: PERRL. EOMI. No scleral icterus. No injection or drainage. ENT: No nasal drainage. Moist mucous membranes. No oral ulcers or lesions. NECK: Supple, trachea midline. No JVD or lymphadenopathy. CARDIOVASCULAR: Tachycardic rate, regular rhythm without murmurs, rubs, or gallops. Peripheral pulses 2+. Capillary refill < 2 seconds. RESPIRATORY: RR about 20-22 (up to 30s to 40 when exerting herself) per min. Poor inspiratory effort. Decreased aeration throughout. Coarse breath sounds in right lung field. GASTROINTESTINAL: Abdomen soft, nontender, nondistended, normal BS. No organomegaly or masses appreciated. No rebound tenderness. No guarding. MUSCULOSKELETAL: No edema, cyanosis, or clubbing. Normal range of motion. BACK: Nontender without obvious deformity. Laboratory Laboratory Tests Test 08/25/16 08/25/16 08/26/16 08/26/16 17:15 17:20 02:49 06:22 White Blood Count 12.8 9.1 Red Blood Count 4.04 3.30 Hemoglobin 14.3 11.8 Hematocrit 41.3 33.7 Mean Corpuscular Volume 102.2 102.2 Mean Corpuscular Hemoglobin 35.4 35.9 Mean Corpuscular Hemoglobin 34.6 35.2 Concent Red Cell Distribution Width 16.5 16.6 Platelet Count 176 148 Mean Platelet Volume 8.1 8.3 Neutrophils (%) (Auto) 83.4 81.5 Lymphocytes (%) (Auto) 13.4 15.0 Monocytes (%) (Auto) 2.6 3.1 Eosinophils (%) (Auto) 0.3 0.2 Basophils (%) (Auto) 0.3 0.2 Neutrophils # (Auto) 10.7 7.4 Lymphocytes # (Auto) 1.7 1.4 Monocytes # (Auto) 0.3 0.3 Eosinophils # (Auto) 0.0 0.0 Basophils # (Auto) 0.0 0.0 CBC Comment DIFF FINAL AUTO DIFF Differential Comment FINAL DIFF MANUAL Prothrombin Time 11.1 Prothromb Time International 1.0 Ratio Activated Partial 23.6 Thromboplast Time Sodium Level 134 140 Potassium Level 4.1 3.4 Chloride Level 99 110 Carbon Dioxide Level 27.0 18.6 Anion Gap 8 11 Blood Urea Nitrogen 11 16 Creatinine 0.80 1.34 Estimat Glomerular Filtration 95 52 Rate Random Glucose 84 98 Calcium Level 8.6 6.9 Magnesium Level 1.6 Total Creatine Kinase 39 Troponin I LESS THAN 0.02 LESS THAN 0.02 Thyroid Stimulating Hormone 1.260 3rd Gen Lactic Acid Level 1.4 2.3 Differential Total Cells 100 Counted Neutrophils % (Manual) 73 Band Neutrophils % 4 Lymphocytes % 16 Monocytes % 1 Neutrophils # (Manual) 7.6 Metamyelocytes 6 Platelet Estimate LOW Platelet Morphology Comment NORMAL Protein Corrected Calcium 7.9 Total Bilirubin 0.6 Aspartate Amino Transf 10 (AST/SGOT) Alanine Aminotransferase 14 (ALT/SGPT) Alkaline Phosphatase 47 Total Protein 5.2 Albumin 2.3 Blood Gas Puncture Site IV Blood Gas Patient Temperature 98.6 Venous Blood pH 7.35 Venous Blood Partial Pressure 24 CO2 Venous Blood Partial Pressure 59 O2 Venous Blood HCO3 13 Venous Blood Oxygen Saturation 85 Venous Blood Oxygen Content 13.9 Venous Blood Base Excess -11.4 Oxygen Delivery Device Venti Mask Blood Gas Liter Flow 6 Blood Gas Inspired Oxygen 50 Test 08/26/16 08:36 White Blood Count 11.6 Red Blood Count 3.30 Hemoglobin 11.8 Hematocrit 34.0 Mean Corpuscular Volume 103.0 Mean Corpuscular Hemoglobin 35.8 Mean Corpuscular Hemoglobin 34.8 Concent Red Cell Distribution Width 16.8 Platelet Count 126 Mean Platelet Volume 8.3 Neutrophils (%) (Auto) 93.3 Lymphocytes (%) (Auto) 4.5 Monocytes (%) (Auto) 2.0 Eosinophils (%) (Auto) 0.1 Basophils (%) (Auto) 0.1 Neutrophils # (Auto) 10.9 Lymphocytes # (Auto) 0.5 Monocytes # (Auto) 0.2 Eosinophils # (Auto) 0.0 Basophils # (Auto) 0.0 CBC Comment AUTO DIFF Date/Time Procedure Status Source Growth 08/26/16 08:10 Legionella Antigen Received Urine Clean Catch Pending 08/26/16 08:10 Streptococcus pneumoniae Antigen (M Received Urine Clean Catch Pending 08/25/16 17:20 Aerobic Blood Culture Received Blood Peripheral Pending 08/25/16 17:20 Anaerobic Blood Culture Received Blood Peripheral Pending 08/25/16 17:15 Gram Stain - Final Resulted Sputum Expectorated Sputum 08/25/16 17:15 Sputum Culture Resulted Sputum Expectorated Sputum Pending Result Diagram: 08/26/16 0836 08/26/16 0249 Septic Shock Reassessment Heart: Regular rate and rhythm Skin: Warm Assessment and Plan Assessment and Plan 41 year old female with PMH significant for HIV diagnosed in 1996 with most recent CD4 count per patient 383 drawn about one month ago presented to the ED due to right-sided chest pain, shortness of breath, productive cough and subjective fever. She will be admitted and managed for the following: Problem List: (1) Sepsis Status: Acute Plan: admitted for sepsis due to pneumonia had 4 liters of fluid no pressors so far holding her pressures started out on rocephin and zithro but changed to zosyn from rocephin when she deteriorated. stopped Rocephin awaiting blood cultures, sputum and urine. (2) Pneumonia Status: Acute Plan: - Dyspnea, right-sided chest pain, cough, subjective fever c/w pneumonia - Afebrile in ED, BP within normal limits, tachycardic up to 120s, tachypneic to low 20s and higher on exertion - O2 sats are appropriate on 6 liters - Leukocytosis to 12.8 with a left shift, lactic acid 1.4 - EKG significant for sinus tachycardia, likely benign early repolarizations in V3 and V4 - CXR shows a wedge-shaped area of consolidation in the right lung; left lung is clear - CTPA shows a dense consolidation in the right upper lobe characteristic of pneumonitis, rounded pneumonia versus mass in right lower lobe; no evidence for pulmonary embolism - Blood culture x2 and sputum culture pending - Check urinary legionella and pneumococcal antigens - Received 1L NS bolus in ED plus an additional 3 for 4 total - Continue with 1.5 x maintenance IVF with NS at 145 cc/hr - Rocephin 2gm IV and azithromycin 500 mg IV given in ED - Continue azithromycin 500 mg po daily - Morphine 4 mg IV q4h prn pain 6-10 - Tylenol prn fever -added zosyn, if suspicion of staph can consider vanc discussed with pt as she has some overall worsening of her respiratory status and she will accept a ventilator if needed in the short term but her mother will make decisions if she cannot speak and she does not want to be on a ventilator for long term care administrator (3) Lung mass Status: Acute Plan: - Patient states she will follow with Dr. Colmenares, oncology, for further evaluation and treatment regarding recent diagnosis of lung cancer (4) HIV (human immunodeficiency virus infection) Status: Chronic Plan: - Last CD4 count per patient was 383 taken one month ago - Continue home antiretroviral medications Genvoya and Prezista (5) Nutrition, metabolism, and development symptoms Status: Acute Plan: Fluids: NS at 145 cc/hr Electrolytes: Na 134, lytes otherwise WNLs, continue to monitor, on electrolyte protocol plus will give some calcium Nutrition: Regular diet as tolerated DVT PPX: Lovenox 40 mg subq daily Depression: Continue Prozac 20 mg po daily Physician Certification 2 Midnight Certification Type: Admission for Inpatient Services Order for Inpatient Services The services are ordered in accordance with Medicare regulations or non- Medicare payer requirements, as applicable. In the case of services not specified as inpatient-only, they are appropriately provided as inpatient services in accordance with the 2-midnight benchmark. Estimated LOS (days): 3 3 days is the estimated time the patient will need to remain in the hospital, assuming treatment plan goals are met and no additional complications. Post-Hospital Plan: Home Problem Qualifiers (1) Sepsis: Qualified Code: A41.9 - Sepsis, due to unspecified organism (2) Pneumonia: Qualified Code: J18.1 - Pneumonia of right middle lobe due to infectious organism Mary Diaz MD 4, 2017 09:47
[2016-08-26 09:51] LABS: BLOOD, URINE MOD (NEG); COMMENT (UR) CULT NOT INDICATED; CULTURE IF INDICATED CULT NOT INDICATED; GLUCOSE,URINE NEG (NEG); KETONE, URINE NEG (NEG); MUCUS URINE FEW /lpf (OCC); NITRITE,URINE NEG (NEG); PH, URINE 5.5 (5.0-8.5); SQUAMOUS EPITHELIAL CELL URINE 3 /hpf (0-5); URINE COLOR YELLOW (YELLW/STRAW)
[2016-08-26 09:56] LABS: BANDS 22 % (0-6); PLATELET ESTIMATE SMEAR LOW (NORMAL); PLATELET MORPHOLOGY NORMAL (NORMAL); POLYS (SEG NEUTROPHILS) 73 % (16-70); WBC DIFF SAMPLE 100
[2016-08-26 09:57] LABS: SCAN/DIFF FINAL DIFF MANUAL
[2016-08-26 09:59] LABS: BICARBONATE 16.7 MEQ/L (21.0-32.0); POTASSIUM 4.2 MEQ/L (3.5-5.1)
[2016-08-26 10:28] LABS: CALCIUM-PROTEIN CORRECTED 7.4 MG/DL (8.5-10.1)
--- NOTE | 2016-08-26 11:28 | HHI.HP ---
HPI Service Critical Care Medicine Primary Care Physician Jaime Perales MD Admission Diagnosis sepsis, pneumonia Diagnosis: Travel History International Travel<30 Days: No Contact w/Intl Traveler <30 Da: No Traveled to Known Affected Are: No History of Present Illness Ms Sanabria is a 41 year old female with PMH significant for HIV diagnosed in 1996 with recent CD4 count 383 1 month ago (reported by pt). The patient presented to the ED with C/O severe right-sided chest pain and shortness of breath. She reported her symptoms began 4 days ago consisting of head and nasal congestion a productive cough with yellow sputum.The patient progressively worsened and called EMS. The patient reported a small amount of hemoptysis while in the ED. In the ED she had chest pain on a VAS scale of 7/10 . She denies left-sided chest pain, palpitations or radiation of pain. Denies abdominal pain, no N/V or diarrhea. The patient was admitted by family medicine. The patient's medical providers-Dr. Muñoz is her infectious disease physician. She states sheis on HAART therapy and takes Genvoya and Prezista each night. Her supervisor blasting is Dr. Florez, . She was treated by Dr. Florez for pneumonia approximately one month ago. She states she was found to have stage I lung cancer while being worked up for the pneumonia last month. She is now following with Dr. Colmenares her oncologist after her lung mass was found. Chemotherapy and radiation therapy have not been initiated yet. Overnight her BPs dropped from 120s systolic in the ED declining to 80s/40s. She received 4 liters total of fluids and is more stable this am. Her pulmonary condition worsened overnight and she required a nonrebreather mask.patient has been weaned down to 6 liter nasal canula. She is more comfortable with her pain and was evaluated for a PE and is clear. She experiences dyspnea with standing. The patient was a [facility] transfer to [facility] overnight.Critical care medicine is consulted for treatment and management of pneumonia/sepsis in the setting of immunocompromise state. ROS - General Review of Systems Constitutional: COMPLAINS OF: Diaphoretic episodes, Fatigue, Fever, Chills, Night Sweats Respiratory: COMPLAINS OF: Cough, Hemoptysis, Shortness of breath Cardiovascular: COMPLAINS OF: Chest pain, Dyspnea on Exertion, DENIES: Lower Extremity Edema Gastrointestinal: DENIES: Abdominal pain Integumentary: DENIES: Abnormal pigmentation Psychiatric: DENIES: Confusion Other Constitutional: COMPLAINS OF: Fever, DENIES: Change in appetite Eyes: DENIES: Blurred vision, Double Vision Ears, nose, mouth, throat: COMPLAINS OF: Nasal discharge, Running Nose Respiratory: COMPLAINS OF: Cough, Hemoptysis, Sputum production, Shortness of breath Cardiovascular: COMPLAINS OF: Chest pain, DENIES: Palpitations, Lower Extremity Edema Gastrointestinal: DENIES: Abdominal pain, Black stools, Bloody stools, Constipation, Diarrhea, Nausea, Vomiting Genitourinary: DENIES: Hematuria, Dysuria Integumentary: DENIES: Rash Neurologic: DENIES: Headache PFSH Past Family Social History Past Medical History HIV diagnosed in 1996 lung cancer found in past month as yet untreated Past Surgical History 2 previous C-sections Allergies: Coded Allergies: Codeine (Verified Allergy, Intermediate, 08/25/16) nausea Family History Mother: alive, ~60yo, HTN Father: alive, late 60s, prostate cancer Social History Tobacco: ~3 cigarettes daily for many years Etoh: denies Illicit drug use: sam Lives in [facility] with son her mother is a nurse and would be her decision maker per her request if she could not speak for herself. She would agree to be placed on a ventilator if needed in the short term but not want to be "kept on one" for an extended period of time Physical Exam Vital Signs Vital Signs Date Time Temp Pulse Resp B/P Pulse Ox O2 Delivery O2 Flow Rate FiO2 08/26/16 08:00 97.8 118 24 109/65 95 08/26/16 07:40 95 Venturi Mask 6.00 50 08/26/16 06:30 97.8 115 34 91/59 94 08/26/16 06:30 97.8 115 34 91/59 94 08/26/16 06:16 93 Venturi Mask 6.00 50 08/26/16 04:36 98.5 116 22 82/48 88 08/26/16 01:40 125 80/49 94 08/26/16 01:25 96.9 124 24 79/49 90 08/25/16 22:00 122 18 120/63 97 08/25/16 20:00 124 18 126/68 96 08/25/16 18:48 125 18 135/78 95 08/25/16 17:37 120 16 127/74 97 08/25/16 17:05 99.8 128 22 138/82 97 08/25/16 17:05 128 22 97 Room Air Physical Exam GENERAL: This is a thin appearing female, currently in no acute distress SKIN: Warm and dry. HEAD: Atraumatic. Normocephalic. EYES: Pupils equal and round. No scleral icterus. No injection or drainage. ENT: No nasal bleeding or discharge. Mucous membranes pink and moist. Uvula midline NECK: Trachea midline. No JVD. CARDIOVASCULAR: Tachycardic, regular rhythm. RESPIRATORY: No accessory muscle use. Coarse breath sounds bilateral lower lobe to auscultation. Breath sounds equal bilaterally. GASTROINTESTINAL: Abdomen soft, non-tender, nondistended. No guarding. MUSCULOSKELETAL: Extremities without clubbing, cyanosis, or edema. No obvious deformities. NEUROLOGICAL: Awake and alert. RASS 0. Cranial nerves II-XII grossly intact No gross focal/sensory deficits. Follows commands in all 4 extremities. Laboratory Laboratory Tests Test 08/25/16 08/25/16 08/26/16 08/26/16 17:15 17:20 02:49 06:22 White Blood Count 12.8 9.1 Red Blood Count 4.04 3.30 Hemoglobin 14.3 11.8 Hematocrit 41.3 33.7 Mean Corpuscular Volume 102.2 102.2 Mean Corpuscular Hemoglobin 35.4 35.9 Mean Corpuscular Hemoglobin 34.6 35.2 Concent Red Cell Distribution Width 16.5 16.6 Platelet Count 176 148 Mean Platelet Volume 8.1 8.3 Neutrophils (%) (Auto) 83.4 81.5 Lymphocytes (%) (Auto) 13.4 15.0 Monocytes (%) (Auto) 2.6 3.1 Eosinophils (%) (Auto) 0.3 0.2 Basophils (%) (Auto) 0.3 0.2 Neutrophils # (Auto) 10.7 7.4 Lymphocytes # (Auto) 1.7 1.4 Monocytes # (Auto) 0.3 0.3 Eosinophils # (Auto) 0.0 0.0 Basophils # (Auto) 0.0 0.0 CBC Comment DIFF FINAL AUTO DIFF Differential Comment FINAL DIFF MANUAL Prothrombin Time 11.1 Prothromb Time International 1.0 Ratio Activated Partial 23.6 Thromboplast Time Sodium Level 134 140 Potassium Level 4.1 3.4 Chloride Level 99 110 Carbon Dioxide Level 27.0 18.6 Anion Gap 8 11 Blood Urea Nitrogen 11 16 Creatinine 0.80 1.34 Estimat Glomerular Filtration 95 52 Rate Random Glucose 84 98 Calcium Level 8.6 6.9 Magnesium Level 1.6 Total Creatine Kinase 39 Troponin I LESS THAN 0.02 LESS THAN 0.02 Thyroid Stimulating Hormone 1.260 3rd Gen Lactic Acid Level 1.4 2.3 Differential Total Cells 100 Counted Neutrophils % (Manual) 73 Band Neutrophils % 4 Lymphocytes % 16 Monocytes % 1 Neutrophils # (Manual) 7.6 Metamyelocytes 6 Platelet Estimate LOW Platelet Morphology Comment NORMAL Protein Corrected Calcium 7.9 Total Bilirubin 0.6 Aspartate Amino Transf 10 (AST/SGOT) Alanine Aminotransferase 14 (ALT/SGPT) Alkaline Phosphatase 47 Total Protein 5.2 Albumin 2.3 Blood Gas Puncture Site IV Blood Gas Patient Temperature 98.6 Venous Blood pH 7.35 Venous Blood Partial Pressure 24 CO2 Venous Blood Partial Pressure 59 O2 Venous Blood HCO3 13 Venous Blood Oxygen Saturation 85 Venous Blood Oxygen Content 13.9 Venous Blood Base Excess -11.4 Oxygen Delivery Device Venti Mask Blood Gas Liter Flow 6 Blood Gas Inspired Oxygen 50 Test 08/26/16 08/26/16 08:10 08:36 Urine Color YELLOW Urine Turbidity HAZY Urine pH 5.5 Urine Specific [place] 1.016 Urine Protein 30 Urine Glucose (UA) NEG Urine Ketones NEG Urine Occult Blood MOD Urine Nitrite NEG Urine Bilirubin NEG Urine Urobilinogen LESS THAN 2.0 Urine Leukocyte Esterase NEG Urine RBC 2 Urine WBC 2 Urine Squamous Epithelial 3 Cells Urine Mucus FEW Microscopic Urinalysis Comment CULT NOT INDICATED White Blood Count 11.6 Red Blood Count 3.30 Hemoglobin 11.8 Hematocrit 34.0 Mean Corpuscular Volume 103.0 Mean Corpuscular Hemoglobin 35.8 Mean Corpuscular Hemoglobin 34.8 Concent Red Cell Distribution Width 16.8 Platelet Count 126 Mean Platelet Volume 8.3 Neutrophils (%) (Auto) 93.3 Lymphocytes (%) (Auto) 4.5 Monocytes (%) (Auto) 2.0 Eosinophils (%) (Auto) 0.1 Basophils (%) (Auto) 0.1 Neutrophils # (Auto) 10.9 Lymphocytes # (Auto) 0.5 Monocytes # (Auto) 0.2 Eosinophils # (Auto) 0.0 Basophils # (Auto) 0.0 CBC Comment AUTO DIFF Differential Total Cells 100 Counted Neutrophils % (Manual) 73 Band Neutrophils % 22 Lymphocytes % 5 Neutrophils # (Manual) 11.0 Differential Comment FINAL DIFF MANUAL Platelet Estimate LOW Platelet Morphology Comment NORMAL Sodium Level 140 Potassium Level 4.2 Chloride Level 113 Carbon Dioxide Level 16.7 Anion Gap 10 Blood Urea Nitrogen 17 Creatinine 1.45 Estimat Glomerular Filtration 48 Rate Random Glucose 146 Calcium Level 6.6 Protein Corrected Calcium 7.4 Total Protein 5.5 Date/Time Procedure Status Source Growth 08/26/16 08:10 Legionella Antigen Received Urine Clean Catch Pending 08/26/16 08:10 Streptococcus pneumoniae Antigen (M Received Urine Clean Catch Pending 08/25/16 17:20 Aerobic Blood Culture - Preliminary Resulted Blood Peripheral NO GROWTH IN 1 DAY 08/25/16 17:20 Anaerobic Blood Culture - Preliminary Resulted Blood Peripheral NO GROWTH IN 1 DAY 08/25/16 17:15 Gram Stain - Final Resulted Sputum Expectorated Sputum 08/25/16 17:15 Sputum Culture Resulted Sputum Expectorated Sputum Pending Result Diagram: 08/26/16 0836 08/26/16 0836 Imaging Last Impressions Chest X-Ray 08/26/16 0600 Signed Impressions: Service Date/Time: Friday, August 26, 2016 05:57 - CONCLUSION: Worsening airspace disease Juma Hill MD CT Angiography 08/25/16 0000 Signed Impressions: Service Date/Time: Thursday, August 25, 2016 18:01 - CONCLUSION: Dense consolidation in the right upper lobe characteristic of pneumonitis. Rounded pneumonia versus mass in the right lower lobe measuring 18 mm. No evidence of pulmonary embolism. Hu Seaman MD Septic Shock Reassessment Heart: Other (tachycardic) Peripheral Pulses: Bounding Right Radial Bounding Left Radial Bounding Right Popliteal Bounding Left Popliteal Capillary Refill: Brisk Assessment and Plan Assessment and Plan This is a critically ill at an [place] female with respiratory compromise due to a differential diagnosis most likely pneumonia with concomitant recent diagnosis of left lower lobe lung cancer. Her HIV status with reportedly CD4 count of [address] her CD4 percentage approximately 1428 percent and HAART therapy further increases the severity of her condition of pneumonia Plan by systems: Neurologic: Depression Continue Prozac Discontinue morphine, due to histamine release and possible respiratory depression in the setting of hypoxia Discontinue ketorolac secondary to renal insufficiency Continue Tylenol when necessary, will consider IV Ofirmev for VAS pain scale 7- 10 Respiratory: Tobacco abuse Carcinoma left lower lobe Pneumonia Acute hypoxic respiratory distress Maintain O2 sat greater than 92% Continue to wean nasal cannula 1-4 liters per minute Continue incentive spirometry 10 breaths every hour while awake currently 1000 cc/per breath Continue bronchodilators every 6 hours, scheduled and every 2 hours when necessary To new Solu-Medrol 40 mg every 8 hours Begin EZPap and Acapella Continue empiric antibiotics azithromycin and cefepime(day 2) Consider nicotine patch Patient counseled on cessation of smoking Cardiovascular: Sinus tachycardia Hypotension-resolved Continue hydration-increase IV normal saline 100cc/hr Telemetry Maintain MAP greater than 65mmHg Renal: Renal insufficiency Creatinine 1.45 Avoid nephrotoxins Obtain urine sodium and urine creatinine Obtain creatinine kinase -- Strict I/Os FEN/GI: Metabolic [id number] gap Elevated lactate level Increase normal saline IV fluids 100 cc/hour Regular diet Zofran for nausea Protonix for GI prophylaxis Heme/ID: Sepsis Pneumonia HIV Elevated lactate level Leukocytosis Obtain CD4-patient reports one month ago 383, report per patient at private physician office Obtain AFB smear Hold HAART vacations in the setting of( Obtain pneumococcal urine culture Monitor serial lactic levels, 1.4-> 2.3 today Obtain LDH level, if elevated suspicion for PCP will begin TMP-SMX, patient currently on no prophylaxis ID consult-appreciate recommendations Monitor CBC-WBC 9->11.6 today Endocrine: Glucose monitoring per ICU protocol, low regimen -- SSI Prophylaxis: GI Prophylaxis Protonix DVT Prophylaxis -- SCDs Lovenox 40mg/day Lines: Peripheral IVs 2. Central line if indicated. Dispo: This patient remains critically ill with one or more organ systems which are or may become a threat to life. I have spent in excess of 55 minutes discontinuously in the care and management of this patient. This time is exclusive of procedures, and includes, but is not limited to, evaluation of the patient, review of the medical record, discussions with family, consultants, nursing staff, or respiratory therapy, and documentation in the medical record. Code Status Full Discussed Condition With Dr. Owen, DIAMOND POWDER TECHNICIAN at bedside Luann Orozco MD Aug 26, 2016 11:28
[2016-08-26] MEDS ORDERED: SODIUM CHLORIDE 0.9% FLUSH 5 ML FLUSH IV FLUSH PRN (11:30)
[2016-08-26] MEDS ORDERED: ACETAMINOPHEN 325 MG TAB PO PRN (11:30)
[2016-08-26] MEDS ORDERED: ONDANSETRON HCL 4 MG/2 ML VIAL IV PRN (11:30)
[2016-08-26] MEDS: CEFEPIME INJ 2,000 MG in SODIUM CHLORIDE 0.9% INJ 100 ML IV SCH ×2 (11:54→19:15)
[2016-08-26] MEDS ORDERED: CALCIUM GLUCONATE INJ 2 GM in SODIUM CHLORIDE 0.9% INJ 100 ML IV ONE (13:00)
[2016-08-26] MEDS ORDERED: DEXTROSE 50% IN WATER 50 ML VIAL(D50) IV PUSH PRN (14:00)
[2016-08-26] MEDS ORDERED: GLUCAGON 1 MG/ML VIAL OTHER PRN (14:00)
--- NOTE | 2016-08-26 14:59 | PD.ID.CON ---
History of Present Illness Service ID Consult Requested By Dr Orozco Reason for Consult HIV PNA, sepsis Primary Care Physician Jaime Perales MD Diagnoses: History of Present Illness 41 yo HIV+ female (dx'd in 1996, on HAART (Prezista, Genvoya), states comliance , last CD4 >300 1 mo ago, last VL -undetectable developped productive cough, hemoptysis, was diagnosed with PNA further w/u revealed underlying lung CA in the L lung she was supposed to be seen by her CT surgeon to schedule for sx when she developped cough, fever, SOB, severe right-sided chest pain 4 days ago along head and nasal congestion a productive cough with yellow sputum. She was initially admitted to the floor but was transferred overnight to ICU 2/ 2 hypoxia, hypotension She was on Ventimask She feels better today Review of Systems Except as stated in HPI: all other systems reviewed are Neg Past Family Social History Allergies: Coded Allergies: Codeine (Verified Allergy, Intermediate, 08/25/16) nausea Past Medical History HIV diagnosed in 1996 lung cancer found in past month as yet untreated Past Surgical History 2 previous C-sections Active Ordered Medications Medications where reviewed in EMR Antibiotics Include: azithro cefepime vanco Family History Mother: alive, ~60yo, HTN Father: alive, late 60s, prostate cancer Social History Tobacco: ~8 cigarettes daily for many years No ETOH. No Illicit Drugs. Physical Exam Vital Signs Vital Signs Date Time Temp Pulse Resp B/P Pulse Ox O2 Delivery O2 Flow Rate FiO2 08/26/16 14:00 90 08/26/16 12:00 98.1 94 25 108/75 100 08/26/16 12:00 94 08/26/16 10:00 103 08/26/16 08:00 118 08/26/16 08:00 97.8 118 24 109/65 95 08/26/16 07:40 95 Venturi Mask 6.00 50 08/26/16 06:30 97.8 115 34 91/59 94 08/26/16 06:30 97.8 115 34 91/59 94 08/26/16 06:16 93 Venturi Mask 6.00 50 08/26/16 04:36 98.5 116 22 82/48 88 08/26/16 01:40 125 80/49 94 08/26/16 01:25 96.9 124 24 79/49 90 08/25/16 22:00 122 18 120/63 97 08/25/16 20:00 124 18 126/68 96 08/25/16 18:48 125 18 135/78 95 08/25/16 17:37 120 16 127/74 97 08/25/16 17:05 99.8 128 22 138/82 97 08/25/16 17:05 128 22 97 Room Air Physical Exam CONSTITUTIONAL/GENERAL: This is an adequately nourished patient, in no apparent distress. TUBES/LINES/DRAINS: SKIN: No jaundice, rashes, or lesions.Skin temperature appropriate. Not diaphoretic. HEAD: Atraumatic. Normocephalic. EYES: Pupils equal and round and reactive. Extraocular motions intact. No scleral icterus. No injection or drainage. Fundi not examined. ENT: Hearing grossly normal. Nose without bleeding or purulent drainage. Throat without visible erythema, exudates, masses, or lesions. NECK: Trachea midline. Supple, nontender. CARDIOVASCULAR: Regular rate and rhythm without murmurs, gallops, or rubs. No JVD. Peripheral pulses symmetric. RESPIRATORY/CHEST: Symmetric, unlabored respirations. Clear to auscultation. Breath sounds equal bilaterally. No wheezes, rales, or rhonchi. GASTROINTESTINAL: Abdomen soft, non-tender, nondistended. No hepato-splenomegaly , or palpable masses. No guarding. Bowel sounds present. GENITOURINARY: Without palpable bladder distension. MUSCULOSKELETAL: Extremities without clubbing, cyanosis, or edema. No joint tenderness or effusion noted. No calf tenderness. No mottling or clubbing. LYMPHATICS: No palpable cervical or supraclavicular adenopathy. NEUROLOGICAL: Awake and alert. Motor and sensory grossly within normal limits. Follows commands. Cognitively sharp. Moves all extremities. PSYCHIATRIC: No obvious anxiety/depression. no apparent hallucinations or other psychotic thought process. Laboratory Laboratory Tests Test 08/25/16 08/25/16 08/26/16 08/26/16 17:15 17:20 02:49 05:45 White Blood Count 12.8 9.1 Red Blood Count 4.04 3.30 Hemoglobin 14.3 11.8 Hematocrit 41.3 33.7 Mean Corpuscular Volume 102.2 102.2 Mean Corpuscular Hemoglobin 35.4 35.9 Mean Corpuscular Hemoglobin 34.6 35.2 Concent Red Cell Distribution Width 16.5 16.6 Platelet Count 176 148 Mean Platelet Volume 8.1 8.3 Neutrophils (%) (Auto) 83.4 81.5 Lymphocytes (%) (Auto) 13.4 15.0 Monocytes (%) (Auto) 2.6 3.1 Eosinophils (%) (Auto) 0.3 0.2 Basophils (%) (Auto) 0.3 0.2 Neutrophils # (Auto) 10.7 7.4 Lymphocytes # (Auto) 1.7 1.4 Monocytes # (Auto) 0.3 0.3 Eosinophils # (Auto) 0.0 0.0 Basophils # (Auto) 0.0 0.0 CBC Comment DIFF FINAL AUTO DIFF Differential Comment FINAL DIFF MANUAL Prothrombin Time 11.1 Prothromb Time International 1.0 Ratio Activated Partial 23.6 Thromboplast Time Sodium Level 134 140 Potassium Level 4.1 3.4 Chloride Level 99 110 Carbon Dioxide Level 27.0 18.6 Anion Gap 8 11 Blood Urea Nitrogen 11 16 Creatinine 0.80 1.34 Estimat Glomerular Filtration 95 52 Rate Random Glucose 84 98 Calcium Level 8.6 6.9 Magnesium Level 1.6 Total Creatine Kinase 39 Troponin I LESS THAN 0.02 LESS THAN 0.02 Thyroid Stimulating Hormone 1.260 3rd Gen Lactic Acid Level 1.4 2.3 Differential Total Cells 100 Counted Neutrophils % (Manual) 73 Band Neutrophils % 4 Lymphocytes % 16 Monocytes % 1 Neutrophils # (Manual) 7.6 Metamyelocytes 6 Platelet Estimate LOW Platelet Morphology Comment NORMAL Protein Corrected Calcium 7.9 Total Bilirubin 0.6 Aspartate Amino Transf 10 (AST/SGOT) Alanine Aminotransferase 14 (ALT/SGPT) Alkaline Phosphatase 47 Total Protein 5.2 Albumin 2.3 Nasal Screen MRSA (PCR) NEGATIVE Test 08/26/16 08/26/16 08/26/16 06:22 08:10 08:36 Blood Gas Puncture Site IV Blood Gas Patient Temperature 98.6 Venous Blood pH 7.35 Venous Blood Partial Pressure 24 CO2 Venous Blood Partial Pressure 59 O2 Venous Blood HCO3 13 Venous Blood Oxygen Saturation 85 Venous Blood Oxygen Content 13.9 Venous Blood Base Excess -11.4 Oxygen Delivery Device Venti Mask Blood Gas Liter Flow 6 Blood Gas Inspired Oxygen 50 Urine Color YELLOW Urine Turbidity HAZY Urine pH 5.5 Urine Specific [place] 1.016 Urine Protein 30 Urine Glucose (UA) NEG Urine Ketones NEG Urine Occult Blood MOD Urine Nitrite NEG Urine Bilirubin NEG Urine Urobilinogen LESS THAN 2.0 Urine Leukocyte Esterase NEG Urine RBC 2 Urine WBC 2 Urine Squamous Epithelial 3 Cells Urine Mucus FEW Microscopic Urinalysis Comment CULT NOT INDICATED White Blood Count 11.6 Red Blood Count 3.30 Hemoglobin 11.8 Hematocrit 34.0 Mean Corpuscular Volume 103.0 Mean Corpuscular Hemoglobin 35.8 Mean Corpuscular Hemoglobin 34.8 Concent Red Cell Distribution Width 16.8 Platelet Count 126 Mean Platelet Volume 8.3 Neutrophils (%) (Auto) 93.3 Lymphocytes (%) (Auto) 4.5 Monocytes (%) (Auto) 2.0 Eosinophils (%) (Auto) 0.1 Basophils (%) (Auto) 0.1 Neutrophils # (Auto) 10.9 Lymphocytes # (Auto) 0.5 Monocytes # (Auto) 0.2 Eosinophils # (Auto) 0.0 Basophils # (Auto) 0.0 CBC Comment AUTO DIFF Differential Total Cells 100 Counted Neutrophils % (Manual) 73 Band Neutrophils % 22 Lymphocytes % 5 Neutrophils # (Manual) 11.0 Differential Comment FINAL DIFF MANUAL Platelet Estimate LOW Platelet Morphology Comment NORMAL Sodium Level 140 Potassium Level 4.2 Chloride Level 113 Carbon Dioxide Level 16.7 Anion Gap 10 Blood Urea Nitrogen 17 Creatinine 1.45 Estimat Glomerular Filtration 48 Rate Random Glucose 146 Calcium Level 6.6 Protein Corrected Calcium 7.4 Total Protein 5.5 Date/Time Procedure Status Source Growth 08/26/16 08:10 Legionella Antigen - Final Complete Urine Clean Catch PRESUMPTIVE NEGATIVE FOR LEGIONELLA P... 08/26/16 08:10 Streptococcus pneumoniae Antigen (M - Final Complete Urine Clean Catch PRESUMPTIVE NEGATIVE FOR STREPTOCOCCU... 08/25/16 17:20 Aerobic Blood Culture - Preliminary Resulted Blood Peripheral NO GROWTH IN 1 DAY 08/25/16 17:20 Anaerobic Blood Culture - Preliminary Resulted Blood Peripheral NO GROWTH IN 1 DAY 08/25/16 17:15 Gram Stain - Final Resulted Sputum Expectorated Sputum 08/25/16 17:15 Sputum Culture - Preliminary Resulted Sputum Expectorated Sputum HEAVY GROWTH NORMAL RESPIRATORY OPAL... Result Diagram: 08/26/16 0836 08/26/16 0836 Imaging Last Impressions Chest X-Ray 08/26/16 0600 Signed Impressions: Service Date/Time: Friday, August 26, 2016 05:57 - CONCLUSION: Worsening airspace disease Juma Hill MD CT Angiography 08/25/16 0000 Signed Impressions: Service Date/Time: Thursday, August 25, 2016 18:01 - CONCLUSION: Dense consolidation in the right upper lobe characteristic of pneumonitis. Rounded pneumonia versus mass in the right lower lobe measuring 18 mm. No evidence of pulmonary embolism. Hu Seaman MD Assessment and Plan Assessment and Plan PNA underlying malignant mass ? obstructive PNA HIV +, on HAART - dc vanco - cont azithro - change cefepime to zosyn for possible aspiration PNA - cont pt s' HAART Delmi De La Cruz MD Aug 26, 2016 14:59
[2016-08-26] MEDS: INSULIN NovoLIN REGULAR SUPPLEMENTAL SCALE SQ SCH ×2 (16:31→20:26)
[2016-08-26 17:30] LABS: CREATINE KINASE 131 U/L (26-192); LDH SERUM 124 U/L (84-246)
[2016-08-26] MEDS ORDERED: AZITHROMYCIN INJ 500 MG in SODIUM CHLOR 0.9% 250 ML INJ 250 ML IV ONE (17:45)
[2016-08-26] MEDS ORDERED: AZITHROMYCIN 250 MG TAB PO SCH (18:00)
[2016-08-26] MEDS ORDERED: KETOROLAC TROMETHAMINE 30 MG/ML (IVP) VIAL IV PUSH ONE (18:45)
[2016-08-26] MEDS ORDERED: cefTRIAXone INJ 2,000 MG in SODIUM CHLORIDE 0.9% INJ 100 ML IV SCH (18:46)
--- NOTE | 2016-08-26 19:26 | EKG ---
Date Performed: 08/25/2016 Time Performed: 17:10:32 PTAGE: 41 years EKG: SINUS TACHYCARDIA ABNORMAL RHYTHM ECG NO PREVIOUS TRACING DOCTOR: Doni De La Cruz Interpretating Date/Time 08/26/2016 19:26:20
--- NOTE | 2016-08-26 19:26 | EKG ---
Date Performed: 08/26/2016 Time Performed: 02:31:44 PTAGE: 41 years EKG: Sinus tachycardia. Poor R wave progression - probable normal variant Since previous tracing , no significant change noted Borderline ECG PREVIOUS TRACING : 08/25/2016 17.10 DOCTOR: Doni De La Cruz Interpretating Date/Time 08/26/2016 19:26:29
[2016-08-26] MEDS: ENOXAPARIN SODIUM 40 MG/0.4 ML SYRINGE SQ SCH (20:26)
[2016-08-26] MEDS: AZITHROMYCIN 500 MG/NS 250 ML IV SCH ×2 (20:26)
[2016-08-26] MEDS: SODIUM CHLORIDE 0.9% FLUSH 5 ML FLUSH IV FLUSH SCH (20:27)
[2016-08-26 23:56] LABS: M. TUBERCULOSIS PCR NOT DETECTED (NOT DETECT)
[2016-08-27] VITALS (14 sets, daily range): BP systolic 119–135; BP diastolic 75–89; PULSE 56–156; RESP 26–31; TEMP 98.2–98.8; O2SAT 94–99
[2016-08-27] MEDS: RESP: ALBUTEROL 2.5 MG/IPRATROPIUM 0.5 MG NEB (SCH) NEB ×4 (03:30→21:12)
[2016-08-27] MEDS: CHLORHEXIDINE GLUCONATE 2 % 1 PACK (2 CLOTHS) TOP SCH (04:00)
[2016-08-27] MEDS ORDERED: CHLORHEXIDINE GLUCONATE 2 % 1 PACK (2 CLOTHS) TOP SCH (04:00)
--- NOTE | 2016-08-27 05:08 | RADRPT ---
EXAM DATE/TIME: 08/27/2016 03:52 [facility] COMPARISON: CHEST SINGLE AP, August 26, 2016, 5:57. INDICATIONS : Shortness of breath, possible pulmonary disease. MEDICAL HISTORY : Carcinoma, lung. SURGICAL HISTORY : None. ENCOUNTER: Subsequent ACUITY: 3 days PAIN SCORE: 0/10 LOCATION: Bilateral chest FINDINGS: Bilateral infiltrates appear minimally improved. Cardiomediastinal contours are stable. CONCLUSION: Slight interval clearance of infiltrates Juma Hill MD on August 27, 2016 at 5:05 Board Certified Radiologist. This report was verified electronically.
[2016-08-27] MEDS: methylPREDNISolone SOD SUCC 40 MG/1 ML VIAL IV PUSH SCH ×3 (05:19→22:48)
[2016-08-27] MEDS: PIPERACIL-TAZO 3.375 GM PREMIX 50 ML IV SCH ×5 (05:20→22:47)
[2016-08-27] MEDS: SODIUM CHLOR 0.9% 1000 ML INJ 1,000 ML IV SCH ×3 (05:20→23:53)
[2016-08-27] MEDS: INSULIN NovoLIN REGULAR SUPPLEMENTAL SCALE SQ SCH ×4 (06:24→21:00)
[2016-08-27] MEDS: PANTOPRAZOLE SOD 40 MG DELAYED RELEASE TAB PO SCH (08:04)
[2016-08-27] MEDS: SODIUM CHLORIDE 0.9% FLUSH 5 ML FLUSH IV FLUSH SCH ×2 (08:04→22:48)
[2016-08-27] MEDS: guaiFENesin E.R. 600 MG TAB PO SCH ×2 (08:04→22:48)
[2016-08-27] MEDS: FLUoxetine HCL 20 MG CAP PO SCH (08:04)
[2016-08-27] MEDS ORDERED: LORazepam 2 MG/ML VIAL IV ONE (08:45)
[2016-08-27] MEDS ORDERED: METOPROLOL TARTRATE 5 MG/5 ML VIAL IV PUSH ONE ×2 (08:45→10:15)
[2016-08-27 10:07] LABS: AUTOMATED NEUTROPHIL # 14.9 TH/MM3 (1.8-7.7); BASOPHIL % 0.1 % (0.0-2.0); HEMATOCRIT 31.4 % (35.0-46.0); HEMO FLAGS DIFF FINAL; LYMPH % 2.8 % (9.0-44.0); LYMPHOCYTE # 0.4 TH/MM3 (1.0-4.8); MEAN CELL VOLUME 103.4 FL (80.0-100.0); MEAN CORPUSCULAR HEMOGLOBIN 35.6 PG (27.0-34.0); MEAN CORPUSCULAR HGB CONC 34.4 % (32.0-36.0); MONO % 1.9 % (0.0-8.0); NEUT % 95.2 % (16.0-70.0); PLATELET COUNT 138 TH/MM3 (150-450); RED BLOOD COUNT 3.04 MIL/MM3 (4.00-5.30); RED CELL DISTRIBUTION WIDTH 17.6 % (11.6-17.2); WHITE BLOOD COUNT 15.7 TH/MM3 (4.0-11.0)
[2016-08-27] MEDS ORDERED: LORazepam 2 MG/ML VIAL IVP ONE (10:15)
--- NOTE | 2016-08-27 10:20 | HHI.FPPN ---
Subjective Remarks No acute events overnight but this morning patient was complaining of panic attacks and depression. This may have been prompted by multiple visitors yesterday. Patient was also found to have A. fib with a rate in the 130s at around 0800. Patient was otherwise asymptomatic. Patient reports that she does feel better and denies any SOB. Her chest pain has also improved. This morning her blood pressure has much improved with current systolic of 130. Remains tachypneic and requiring nasal cannula. (Sita Mejia MD R2) Objective Vitals Vital Signs Date Time Temp Pulse Resp B/P Pulse Ox O2 Delivery O2 Flow Rate FiO2 08/27/16 08:00 156 08/27/16 08:00 98.2 156 31 134/89 96 08/27/16 07:21 99 Nasal Cannula 4.00 08/27/16 06:00 56 08/27/16 04:00 98.6 109 26 134/83 94 08/27/16 04:00 109 08/27/16 02:00 85 08/27/16 00:00 86 08/27/16 00:00 98.8 86 28 124/83 98 08/26/16 22:31 99 Nasal Cannula 4.00 08/26/16 22:00 100 08/26/16 20:00 102 08/26/16 20:00 98.4 102 25 138/95 99 08/26/16 18:00 93 08/26/16 16:00 97.9 97 27 120/81 99 08/26/16 16:00 97 08/26/16 14:00 90 08/26/16 12:00 98.1 94 25 108/75 100 08/26/16 12:00 94 I/O 08/26/16 08/26/16 08/26/16 08/27/16 08/27/16 08/27/16 07:00 15:00 23:00 07:00 15:00 23:00 Intake Total 3142 ml 704 ml 750 ml Output Total 250 ml 200 ml 400 ml Balance -250 ml 3142 ml 504 ml 350 ml Intake Oral 240 ml IV Total 2902 ml 704 ml 750 ml Output Urine Total 250 ml 200 ml 400 ml # Voids 1 1 # Bowel Movements 1 2 1 (Sita Mejia MD R2) Result Diagram: 08/27/16 0911 08/26/16 0836 Imaging GEN: Well-developed, well-nourished patient. No acute distress. Speaking in complete sentences. CV: Increased rate with an irregular rhythm. No obvious murmurs. LUNGS: Clear to auscultation bilaterally. Normal respiratory effort. No wheezes , rales, rhonchi. EXT: No edema. No calf tenderness. NEURO/PSYCH: Awake, alert. Appropriate insight and judgment. Normal speech ( Sita Mejia MD R2) A/P Assessment and Plan 41 year old female with PMH significant for HIV with most recent CD4 count per patient 383 drawn about one month ago presented to the ED due to right-sided chest pain, shortness of breath, productive cough and subjective fever. She will be admitted and managed for the following: Discharge Planning 3-5 days pending improvement in clinical course (Sita Mejia MD R2) Attending Attestation Patient seen and examined. Case reviewed and discussed with the resident team. Agree with plan of care as discussed with me and documented in the resident note. will try to help her get medicines for hiv and some help as an outpt (Mary Diaz MD) Problem List: (1) Pneumonia Status: Acute Plan: Met sepsis criteria on admission with tachycardia, tachypnea, leukocytosis. Found to have right upper lobe pneumonitis. Associated with right-sided chest pain that was pleuritic in nature. On the night of admission , patient continued to have tachypnea with an increase oxygen supplementation requirement involving both nonrebreather and Ventimask. She also became hypotensive and required 4 L boluses. Critical care consulted on 08/26 and currently managing. -Leukocytosis with left shift. Improving lactic acidosis * Continue leukocytosis may be due to steroids -Remains on NC at 6 L -Blood culture: No growth 1 day -Sputum culture: Heavy growth normal gloria -Urine: Negative for Legionella and Streptococcus pneumoniae -Sputum culture for acid-fast: Pending -TB PCR: Not detected ID consulted: Appreciate recommendations * Discontinue vancomycin * Continue azithromycin * Change cefepime to Zosyn for possible aspiration pneumonia Imaging: * CXR 08/27: Slight interval clearance of infiltrates * CXR 08/26: Worsening airspace disease * CTA: Dense consolidation in the right upper lobe care to risk it of pneumonitis. Rounded pneumonia versus mass in the right lower lobe measuring 18 mm. No evidence of PE Medications: * Azithromycin 500 mg (08/25 * Zosyn (08/27- * Solu-Medrol 40mg IV q8 * Mucinex * Albuterol + Duonebs * Discontinued ABX: Vancomycin (08/26), Cefepime (08/26), Rocephin (08/25) (2) A-fib Status: Resolved Plan: Initially presented with sinus tachycardia on EKG with negative troponin 2. Converted to A. fib with RVR on 08/27. -Does not need anticoagulation as CHADS2 score is 0 -Repeat troponin pending -Echo ordered for tomorrow -Consider cardiology consult tomorrow Medications: * Metoprolol IV (3) Sepsis Status: Resolved Plan: -See more detail plan above (4) Anxiety with depression Status: Acute Plan: Symptoms of anxiety and depression likely exacerbated by new diagnosis of cancer. Denies suicidal ideation -Continue home Prozac -Ativan PRN, monitor respiratory status -Consulted neuropsychology: Appreciate recommendations (5) Lung mass Status: Chronic Plan: - Patient states she will follow with Dr. Colmenares, oncology, for further evaluation and treatment regarding recent diagnosis of lung cancer (6) HIV (human immunodeficiency virus infection) Status: Chronic Plan: - Last CD4 count per patient was 383 taken one month ago - Continue home antiretroviral medications Genvoya and Prezista (7) Nutrition, metabolism, and development symptoms Status: Acute Plan: Fluids: NS at 100 cc/hr Electrolytes: Grossly unremarkable, continue to monitor with electrolytes protocol Nutrition: Regular diet as tolerated DVT PPX: Lovenox 40 mg subq daily (Sita Mejia MD R2) Problem Qualifiers (1) Pneumonia: Qualified Code: J18.1 - Pneumonia of right middle lobe due to infectious organism (2) Sepsis: Qualified Code: A41.9 - Sepsis, due to unspecified organism Sita Mejia MD R2 Aug 27, 2016 10:20 Mary Diaz MD Sep 02, 2016 13:35
[2016-08-27 10:31] LABS: ALKALINE PHOSPHATASE 45 U/L (45-117); ALT (GPT) 31 U/L (10-53); ANION GAP 14 MEQ/L (5-15); AST (GOT) 23 U/L (15-37); BICARBONATE 16.3 MEQ/L (21.0-32.0); BLOOD UREA NITROGEN 18 MG/DL (7-18); CHLORIDE 112 MEQ/L (98-107); GLOMERULAR FILTRATION RATE 78 ML/MIN (>89); MAGNESIUM 1.8 MG/DL (1.5-2.5); POTASSIUM 4.1 MEQ/L (3.5-5.1); SODIUM (NA) 142 MEQ/L (136-145); TOTAL BILIRUBIN ADULT 0.3 MG/DL (0.2-1.0)
[2016-08-27] MEDS ORDERED: ACETAMINOPHEN 1000 MG/100 ML VIAL IV PRN (12:00)
[2016-08-27] MEDS ORDERED: DILTIAZEM HCL 25 MG/5 ML VIAL IV ONE (13:00)
[2016-08-27] MEDS ORDERED: DILTIAZEM HCL 25 MG/5 ML VIAL IVP ONE ×2 (13:00)
[2016-08-27] MEDS: DILTIAZEM INJ 125 MG in SODIUM CHLORIDE 0.9% INJ 100 ML IV SCH ×2 (13:33→20:32)
[2016-08-27 16:27] LABS: HEMATOCRIT 31.4 % (35.0-46.0); REVIEW FLAG FINAL
--- NOTE | 2016-08-27 17:34 | EKG ---
Date Performed: 08/27/2016 Time Performed: 08:42:41 PTAGE: 41 years EKG: ATRIAL FIBRILLATION WITH RAPID VENTRICULAR RESPONSE COMPARED TO PREVIOUS TRACING PATIENT IS NOW IN AFIB ABNORMAL RHYTHM ECG PREVIOUS TRACING : 08/26/2016 02.31 DOCTOR: Doni De La Cruz Interpretating Date/Time 08/27/2016 17:33:00
--- NOTE | 2016-08-27 19:08 | HHI.CCPN ---
Subjective Remarks/Hospital Course Ms Sanabria is a 41 year old female with PMH significant for HIV diagnosed in 1996 with recent CD4 count 383 1 month ago (reported by pt). The patient presented to the ED with C/O severe right-sided chest pain and shortness of breath. She reported her symptoms began 4 days ago consisting of head and nasal congestion a productive cough with yellow sputum.The patient progressively worsened and called EMS. The patient reported a small amount of hemoptysis while in the ED. In the ED she had chest pain on a VAS scale of 7/10 . She denies left-sided chest pain, palpitations or radiation of pain. Denies abdominal pain, no N/V or diarrhea. The patient was admitted by family medicine. The patient's medical providers-Dr. Muñoz is her infectious disease physician. She states sheis on HAART therapy and takes Genvoya and Prezista each night. Her director electronics is Dr. Florez, . She was treated by Dr. Florez for pneumonia approximately one month ago. She states she was found to have stage I lung cancer while being worked up for the pneumonia last month. She is now following with Dr. Colmenares her oncologist after her lung mass was found. Chemotherapy and radiation therapy have not been initiated yet. Overnight her BPs dropped from 120s systolic in the ED declining to 80s/40s. She received 4 liters total of fluids and is more stable this am. Her pulmonary condition worsened overnight and she required a nonrebreather mask.patient has been weaned down to 6 liter nasal canula. She is more comfortable with her pain and was evaluated for a PE and is clear. She experiences dyspnea with standing. The patient was a [facility] transfer to [facility] overnight.Critical care medicine is consulted for treatment and management of pneumonia/sepsis in the setting of immunocompromise state. 3/5: The patient's lactate level is trending down this a.m.. ID was consult, Dr. De La Cruz-plan to resume HAART medications today. This a.m. the patient went into A. fib with RVR, heart rate 150s. Metoprolol given 2.5 mg 2 doses which was ineffective. The patient was then given Cardizem 20 mg, and placed on a Cardizem infusion, now rate controlled. Troponin slightly elevated most likely secondary to demand ischemia, cardiology was consulted for new onset A. fib, echo pending. The patient was very anxious and crying all morning, stating she normally takes 0.5 mg of Ativan when necessary for anxiety. The patient was given 1 mg of Ativan, with good results. Objective Vital Signs Date Time Temp Pulse Resp B/P Pulse Ox O2 Delivery O2 Flow Rate FiO2 08/27/16 18:00 83 08/27/16 16:00 98.5 26 124/75 96 08/27/16 07:21 Nasal Cannula 4.00 08/26/16 07:40 50 Intake and Output 08/26/16 08/26/16 08/27/16 08:00 16:00 00:00 Intake Total 3142 ml 704 ml Output Total 250 ml 200 ml Balance -250 ml 3142 ml 504 ml Result Diagram: 08/27/16 1614 08/27/16 0911 Other Results Microbiology Date/Time Procedure Status Source Growth 08/25/16 17:15 Gram Stain - Final Complete Sputum Expectorated Sputum 08/25/16 17:15 Sputum Culture - Final Complete Sputum Expectorated Sputum HEAVY GROWTH NORMAL RESPIRATORY OPAL 08/26/16 08:10 Legionella Antigen - Final Complete Urine Clean Catch PRESUMPTIVE NEGATIVE FOR LEGIONELLA P... 08/26/16 08:10 Streptococcus pneumoniae Antigen (M - Final Complete Urine Clean Catch PRESUMPTIVE NEGATIVE FOR STREPTOCOCCU... Imaging Last Impressions Chest X-Ray 08/26/16 0600 Signed Impressions: Service Date/Time: Friday, August 26, 2016 05:57 - CONCLUSION: Worsening airspace disease Juma Hill MD CT Angiography 08/25/16 0000 Signed Impressions: Service Date/Time: Thursday, August 25, 2016 18:01 - CONCLUSION: Dense consolidation in the right upper lobe characteristic of pneumonitis. Rounded pneumonia versus mass in the right lower lobe measuring 18 mm. No evidence of pulmonary embolism. Hu Seaman MD Objective Remarks GENERAL: This is a thin appearing female, crying , depressed in moderate distress heart rate 150s SKIN: Warm and dry. HEAD: Atraumatic. Normocephalic. EYES: Pupils equal and round. No scleral icterus. No injection or drainage. ENT: No nasal bleeding or discharge. Mucous membranes pink and moist. Uvula midline. Currently nasal cannula at 2 L NECK: Trachea midline. No JVD. CARDIOVASCULAR: A. fib with RVR, regular rhythm. RESPIRATORY: No accessory muscle use. Coarse breath sounds bilateral lower lobe to auscultation. Breath sounds equal bilaterally. GASTROINTESTINAL: Abdomen soft, non-tender, nondistended. No guarding. MUSCULOSKELETAL: Extremities without clubbing, cyanosis, or edema. No obvious deformities. NEUROLOGICAL: Awake and alert. RASS 0. Cranial nerves II-XII grossly intact No gross focal/sensory deficits. Follows commands in all 4 extremities. A/P Assessment and Plan Plan by systems: Neurologic: Depression Continue Prozac Discontinue morphine, due to histamine release and possible respiratory depression in the setting of hypoxia Discontinue ketorolac secondary to renal insufficiency Continue Tylenol when necessary, will consider IV Ofirmev for VAS pain scale 7- 10 Psychiatry consult for depression and coping mechanisms regarding disease process Respiratory: Tobacco abuse Carcinoma left lower lobe Pneumonia Acute hypoxic respiratory distress Maintain O2 sat greater than 92% Continue to wean nasal cannula 1-4 liters per minute Continue incentive spirometry 10 breaths every hour while awake currently 1000 cc/per breath Continue bronchodilators every 6 hours, scheduled and every 2 hours when necessary To new Solu-Medrol 40 mg every 8 hours Begin EZPap and Acapella Continue empiric antibiotics azithromycin and cefepime(day 3) Consider nicotine patch Patient counseled on cessation of smoking ID consulted Dr. De La Cruz-follow recommendations, patient will resume HAART medicine per recommendations Cardiovascular: Sinus tachycardia Hypotension-resolved New onset A. fib with RVR Hep-Lock IV Telemetry Maintain MAP greater than 65mmHg Metoprolol 2.5 mg 2 doses , Cardizem 20 mg IV 1 . Begin Cardizem infusion- plans for transition to PO Obtain EKG Cardiology consulted Renal: Renal insufficiency-resolved Prerenal Azotemia Creatinine improving 0.9 Avoid nephrotoxins, NSAID's FeNa .09, Urine Osmo- WNL creatinine kinase-WNL -- Strict I/Os FEN/GI: Metabolic inzfezfk-pil-aefwm gap Elevated lactate level D/C NS IVF Regular diet Zofran for nausea Protonix for GI prophylaxis Heme/ID: Sepsis Pneumonia HIV Elevated lactate level Leukocytosis Obtain CD4-patient reports one month ago 383, report per patient at private physician office Obtain AFB smear Resume HAART medications F/U Pneumococcal Antigen TB PCR- neg Monitor serial lactic levels, 1.4-> 2.3 Obtain LDH level WNL ID consulted Dr. De La Cruz-follow recommendations, patient will resume HAART medicine per recommendations Monitor CBC-WBC 11.6-> 15 today Endocrine: Glucose monitoring per ICU protocol, low regimen -- SSI Prophylaxis: GI Prophylaxis Protonix DVT Prophylaxis -- SCDs Lovenox 40mg/day Lines: Peripheral IVs 2. Central line if indicated. Dispo: This patient remains critically ill with one or more organ systems which are or may become a threat to life. I have spent in excess of 49 minutes discontinuously in the care and management of this patient. This time is exclusive of procedures, and includes, but is not limited to, evaluation of the patient, review of the medical record, discussions with family, consultants, nursing staff, or respiratory therapy, and documentation in the medical record. Physician Luann Jain MD Aug 27, 2016 19:08
[2016-08-27] MEDS: TENOFOVIR DISOPROXIL FUMARATE 300 MG TAB PO SCH (21:00)
[2016-08-27] MEDS ORDERED: DARUNAVIR 800 MG TAB PO SCH (21:00)
[2016-08-27] MEDS ORDERED: ELVI1TAB3 PO (21:53)
[2016-08-27] MEDS ORDERED: DARU800T PO (21:55)
[2016-08-27] MEDS ORDERED: [UNRECOGNIZED DRUG - OTHER] PO SCH (22:00)
[2016-08-27] MEDS: LORazepam 2 MG/ML VIAL IV PRN (22:47)
[2016-08-27] MEDS: AZITHROMYCIN 500 MG/NS 250 ML IV SCH ×2 (22:47)
[2016-08-27] MEDS: DARUNAVIR 800 MG TAB PO SCH (22:48)
[2016-08-27] MEDS: ENOXAPARIN SODIUM 40 MG/0.4 ML SYRINGE SQ SCH (22:50)
[2016-08-27] MEDS: [UNRECOGNIZED DRUG - OTHER] PO SCH (22:51)
[2016-08-28] VITALS (14 sets, daily range): BP systolic 109–134; BP diastolic 67–88; PULSE 79–113; RESP 20–36; TEMP 97.9–98.8; O2SAT 92–98
[2016-08-28] MEDS: RESP: ALBUTEROL 2.5 MG/IPRATROPIUM 0.5 MG NEB (SCH) NEB ×4 (03:11→21:08)
[2016-08-28] MEDS: CHLORHEXIDINE GLUCONATE 2 % 1 PACK (2 CLOTHS) TOP SCH (04:00)
--- NOTE | 2016-08-28 05:14 | RADRPT ---
EXAM DATE/TIME: 08/28/2016 04:28 [facility] COMPARISON: CHEST SINGLE AP, August 27, 2016, 3:52. INDICATIONS : Shortness of breath, possible pulmonary disease. MEDICAL HISTORY : Carcinoma, lung. SURGICAL HISTORY : None. ENCOUNTER: Subsequent ACUITY: 4 - 6 days PAIN SCORE: 0/10 LOCATION: Bilateral chest FINDINGS: A single view of the chest demonstrates some improvement in the right upper lobe infiltrate and left- sided effusion. Stable bibasilar consolidation. Heart size is borderline. Osseous structures are inta ct. CONCLUSION: Slight interval improvement as detailed above. Nabil Mcgrath MD on August 28, 2016 at 5:10 Board Certified Radiologist. This report was verified electronically.
[2016-08-28] MEDS: PIPERACIL-TAZO 3.375 GM PREMIX 50 ML IV SCH ×4 (05:49→22:47)
[2016-08-28] MEDS: methylPREDNISolone SOD SUCC 40 MG/1 ML VIAL IV PUSH SCH ×3 (05:50→20:38)
[2016-08-28] MEDS: INSULIN NovoLIN REGULAR SUPPLEMENTAL SCALE SQ SCH ×4 (05:54→20:43)
[2016-08-28 06:46] LABS: AUTOMATED NEUTROPHIL # 13.1 TH/MM3 (1.8-7.7); BASOPHIL % 0.2 % (0.0-2.0); EOSINOPHIL % 0.1 % (0.0-4.0); LYMPH % 2.6 % (9.0-44.0); LYMPHOCYTE # 0.4 TH/MM3 (1.0-4.8); MEAN CELL VOLUME 102.9 FL (80.0-100.0); MONO % 2.2 % (0.0-8.0); NEUT % 94.9 % (16.0-70.0); PLATELET COUNT 130 TH/MM3 (150-450); RED BLOOD COUNT 2.91 MIL/MM3 (4.00-5.30); RED CELL DISTRIBUTION WIDTH 17.5 % (11.6-17.2); WHITE BLOOD COUNT 13.8 TH/MM3 (4.0-11.0)
[2016-08-28 06:52] LABS: HEMO FLAGS AUTO DIFF
[2016-08-28 06:59] LABS: BICARBONATE 21.1 MEQ/L (21.0-32.0); MAGNESIUM 1.9 MG/DL (1.5-2.5); POTASSIUM 3.5 MEQ/L (3.5-5.1)
[2016-08-28 07:58] LABS: BANDS 11 % (0-6); NEUTROPHIL # MANUAL DIFF 13.1 TH/MM3 (1.8-7.7); POLYS (SEG NEUTROPHILS) 84 % (16-70); WBC DIFF SAMPLE 100
[2016-08-28 07:59] LABS: SPHEROCYTES OCC (NORMAL); TARGET CELLS 1+ (NORMAL)
[2016-08-28 08:00] LABS: PLATELET ESTIMATE SMEAR LOW (NORMAL); PLATELET MORPHOLOGY NORMAL (NORMAL); SCAN/DIFF FINAL DIFF MANUAL
[2016-08-28] MEDS: SODIUM CHLORIDE 0.9% FLUSH 5 ML FLUSH IV FLUSH SCH ×2 (09:00→20:15)
[2016-08-28] MEDS: PANTOPRAZOLE SOD 40 MG DELAYED RELEASE TAB PO SCH (09:10)
[2016-08-28] MEDS: guaiFENesin E.R. 600 MG TAB PO SCH ×2 (09:10→20:16)
[2016-08-28] MEDS: FLUoxetine HCL 20 MG CAP PO SCH (09:10)
[2016-08-28] MEDS: LORazepam 2 MG/ML VIAL IV PRN ×2 (09:10→13:32)
[2016-08-28] MEDS: SODIUM CHLOR 0.9% 1000 ML INJ 1,000 ML IV SCH ×2 (09:35→20:15)
--- NOTE | 2016-08-28 10:14 | EKG ---
Date Performed: 08/27/2016 Time Performed: 14:15:14 PTAGE: 41 years EKG: ATRIAL FIBRILLATION ABNORMAL RHYTHM ECG Compared to prior tracing no significant change PREVIOUS TRACING : 08/27/2016 08.42 DOCTOR: Pavel Tavarez Interpretating Date/Time 08/28/2016 10:13:06
--- NOTE | 2016-08-28 10:37 | HHI.FPPN ---
Subjective Remarks Seen and examined this morning. No acute events overnight with vital signs stable. Patient says that she is doing well this morning and has had no difficult breathing throughout the night. She states that she was scheduled to have an outpatient CT scan today and follow-up appointment with CT surgery tomorrow for her lung cancer. She had many questions regarding her pneumonia and why the outpatient antibiotics she received from her auxiliary equipment tender did not appropriately treat her. We discussed her clinical condition and all questions were answered. She has no other complaints and denies any fevers, chills, shortness of breath, and chest pain, NVD, or calf tenderness. (Mukul Colmenares MD R1) Objective Vitals Vital Signs Date Time Temp Pulse Resp B/P Pulse Ox O2 Delivery O2 Flow Rate FiO2 08/28/16 10:00 105 08/28/16 08:36 94 Nasal Cannula 4.00 08/28/16 08:00 98.0 83 24 113/67 98 08/28/16 08:00 83 08/28/16 06:00 80 08/28/16 04:00 98.0 81 29 109/67 94 08/28/16 04:00 81 08/28/16 02:00 79 08/28/16 00:00 98.8 105 20 128/88 93 08/28/16 00:00 105 08/27/16 22:00 89 08/27/16 21:12 95 Nasal Cannula 5.00 08/27/16 20:00 98.4 83 27 119/80 98 08/27/16 20:00 83 08/27/16 18:00 83 08/27/16 16:00 89 08/27/16 16:00 98.5 89 26 124/75 96 08/27/16 14:00 118 08/27/16 12:00 98.7 121 30 135/85 96 08/27/16 12:00 121 I/O 08/27/16 08/27/16 08/27/16 08/28/16 08/28/16 08/28/16 07:00 15:00 23:00 07:00 15:00 23:00 Intake Total 750 ml 848 ml 529 ml 546 ml Output Total 400 ml 700 ml 1000 ml 600 ml Balance 350 ml 148 ml -471 ml -54 ml Intake Oral 240 ml IV Total 750 ml 608 ml 529 ml 546 ml Output Urine Total 400 ml 700 ml 1000 ml 600 ml # Bowel Movements 1 2 (Mukul Colmenares MD R1) Result Diagram: 08/28/1661308/28/16613 Objective Remarks GEN: Well-developed, well-nourished patient AAF lying in bed in NAD able to speak in full sentences. CV: Rate to the 90s on exam with regular rhythm.. No obvious murmurs. LUNGS: Clear to auscultation bilaterally. Normal respiratory effort. No wheezes , rales, rhonchi. GI: Soft, nontender, nondistended with positive bowel sounds. No masses appreciated. EXT: No edema. No calf tenderness. NEURO/PSYCH: Awake, alert. Appropriate insight and judgment. Normal speech ( Mukul Colmenares MD R1) A/P Assessment and Plan Ms. Gonzalez is a 41 year old female with PMH significant for HIV with most recent CD4 count per patient 383 drawn about one month ago admitted for IV ABX treatment of PNA. Discharge Planning Pending continued clinical improvement and ID recommendations DW: Dr. Diaz (Mukul Colmenares MD R1) Attending Attestation Patient seen and examined. Case reviewed and discussed with the resident team. Agree with plan of care as discussed with me and documented in the resident note. improving greatly with pneumonia (Mary Diaz MD) Problem List: (1) Pneumonia Status: Acute Plan: Met sepsis criteria on admission with tachycardia, tachypnea, leukocytosis. Found to have right upper lobe pneumonitis. Associated with right-sided chest pain that was pleuritic in nature. On the night of admission , patient continued to have tachypnea with an increase oxygen supplementation requirement involving both nonrebreather and Ventimask. She also became hypotensive and required 4 L boluses. Critical care consulted on 08/26 and currently managing. -Leukocytosis with left shift. Improving lactic acidosis * Continue leukocytosis may be due to steroids -Nasal canula at 4 L -Blood culture: No growth 2 day -Sputum culture: Heavy growth normal gloria -Urine: Negative for Legionella and Streptococcus pneumoniae -Sputum culture for acid-fast: Pending -Mycobacterial culture: Pending -TB PCR: Not detected ID consulted: Appreciate recommendations * Discontinue vancomycin * Continue azithromycin * Change cefepime to Zosyn for possible aspiration pneumonia Imaging: * CXR 08/27: Slight interval clearance of infiltrates * CXR 08/26: Worsening airspace disease * CTA: Dense consolidation in the right upper lobe care to risk it of pneumonitis. Rounded pneumonia versus mass in the right lower lobe measuring 18 mm. No evidence of PE Medications: * Azithromycin 500 mg (08/25 * Zosyn (08/27- * Solu-Medrol 40mg IV q8 * Mucinex * Albuterol + Duonebs * Discontinued ABX: Vancomycin (08/26), Cefepime (08/26), Rocephin (08/25) (2) A-fib Status: Resolved Plan: Initially presented with sinus tachycardia on EKG with negative troponin 2. Converted to A. fib with RVR on 08/27. -Does not need anticoagulation as CHADS2 score is 0 -Troponin: 0.19, 0.12 (Likely due to demand ischemia) -Echo: Today -Cardiology consulted, appreciate recommendations Medications: * Metoprolol IV at 5 mg/hr, currently in sinus rhythm (3) Sepsis Status: Resolved Plan: -See more detail plan above (4) Anxiety with depression Status: Acute Plan: Symptoms of anxiety and depression likely exacerbated by new diagnosis of cancer. Denies suicidal ideation -Continue home Prozac -Ativan PRN, monitor respiratory status -Consulted neuropsychology: Appreciate recommendations (5) Lung mass Status: Chronic Plan: - Patient states she will follow with Dr. Colmenares, oncology, for further evaluation and treatment regarding recent diagnosis of lung cancer (6) HIV (human immunodeficiency virus infection) Status: Chronic Plan: Last CD4 count per patient was 383 taken one month ago Continue home antiretroviral medications Genvoya and Prezista, Started 08/27 Absolute lymphocytes: Pending CD4 % cells: Pending Absolute CD4: Pending T-helper/suppressor ratio: Pending Absolute CD8 count: Pending (7) Nutrition, metabolism, and development symptoms Status: Acute Plan: Fluids: NS at 100 cc/hr Electrolytes: Grossly unremarkable, continue to monitor with electrolytes protocol Nutrition: Regular diet as tolerated DVT PPX: Lovenox 40 mg subq daily (Mukul Colmenares MD R1) Problem Qualifiers (1) Pneumonia: Qualified Code: J18.1 - Pneumonia of right middle lobe due to infectious organism (2) Sepsis: Qualified Code: A41.9 - Sepsis, due to unspecified organism Mukul Colmenares MD R1 Aug 28, 2016 10:37 Mary Diaz MD Sep 02, 2016 13:36
[2016-08-28] MEDS: DILTIAZEM HCL 30 MG TAB PO SCH ×3 (13:26→20:16)
--- NOTE | 2016-08-28 13:46 | PD.HHIRCNE ---
Patient History Record/History Review Medical Information Review: Hx of present illness Reason for Referral: The patient is a 41 year old female with a past medical history of HIV (1996) and recent admission for severe right sided chest pain on 08/25/2016, who was recently diagnosed with lung cancer, who is now presenting as anxious, unable to be consoled at times and tearful who is referred for baseline neurobehavioral status examination to assess cognitive, behavioral and emotional aspects of the injury. Neuropsych Precautions: To be determined. Past Surgical/Medical History Major surgery in last 100 days: Unknown Hx of Respiratory Problem: Yes (pneumonia one month ago, right lower lobe lung mass) ?: Unknown Hx of Immuno Disor: Yes (HIV) Medication Active Medications Darunavir (Prezista) 800 mg HS PO; Start 08/27/16 at 21:00; Stop 08/27/16 at 22:02 ; Status DC Darunavir (Prezista) 800 mg HS PO Last administered on 08/27/16 22:48; Admin Dose 800 MG; Start 08/27/16 at 22:00 Diltiazem HCl (Cardizem) 30 mg QID PO Last administered on 08/28/16 13:26; Admin Dose 30 MG; Start 08/28/16 at 13:00 Patient Own Medication PT OWN MED: GENVOYA COMBINAT... HS PO; Start 08/27/16 at 22:00; Status Cancel Patient Own Medication PT OWN MED: GENVOYA COMBINAT... HS PO Last administered on 08/27/16 22:51; Admin Dose 1 EA; Start 08/27/16 at 23:00 Tenofovir Disoproxil Fumarate (Viread) 300 mg HS PO; Start 08/27/16 at 21:00 Mental Status Assessment Orientation: oriented to Self, oriented to Place Mental Status: WFL: Thought processing, Language/Interactions, Attention, Learning/Memory, Problem-Solving, Visuospatial/Construction, Self-regulation, Other Observation The patient is alert and oriented to person, place, time and circumstances surrounding the reason for hospitalization. In terms of attention skills, the patient was able to remain on task and remember basic and complex instructions. In terms of memory functioning, the patient was able to demonstrate appropriate carryover of information over time. The patient initiated spontaneous conversation. Speech was characterized by adequate prosody, grammar , articulation, volume and rate. Basic naming skills were intact. Language repetition skills were intact. The patients comprehensions for basic one- and two-stage commands were intact. Basic verbal abstraction and problem-solving skills were intact. The patient appears to posses adequate basic insight and awareness into their situation and within the limits of this brief evaluation, adequate basic judgment. Adjustment/Coping Assessment Adjustment/Coping: Mild: Awareness, Insight, Severe: Depression, Anxiety, Not Assessed: Pain Affect: Full Range Observation The patients thought content was free from suicidal, homicidal or paranoid ideation, and the patients thought processes were logical and goal-directed. The patients mood was dysthymic, anxious and tearful, and her affect was worrisome and labile. LTG Status: Deferred STG Status: Deferred Team Members: Neuropsychologist Behavior Assessment Agitation: None Treatment Engagement: Average Observation Behaviorally, the patient demonstrated no signs of agitation, impulsivity or disinhibition. There was no remarkable evidence of a formal thought disorder or psychosis. LTG - Status: Deferred STG Status: Deferred Team Members: Neuropsychologist Feedback/Education Skilled Interventions: Coping Strategies Training Barriers to Treatment: Medical Status Diagnosis/Discharge Plan Impression This patient is suffering from a recurrent major depressive disorder related to her multiple medical challenges. Diagnosis: (1) Anxiety with depression Status: Acute Maximizing acute care outcome Psychiatric follow-up and management of her depressive symptoms is strongly recommended in order to maximize her acute care outcomes. Throughout her stay, I will provide supportive psychotherapeutic support in order to augment the pharmacological treatment provided by psychiatry. Additionally, the patients family is experiencing ongoing issues of adjustment given the traumatic nature of the injury, and they will benefit from ongoing psychological assistance, which I will be happy to provide. Discharge Planning Anticipated Problems The biggest anticipated problems are her chronic medical conditions. Treatment Plan This clinician will continue to follow with you throughout the course of this patients rehabilitation treatment, and I will be available to meet with the patients family/support system to facilitate their understanding and the ongoing care of their family member. The goals of neuropsychological intervention shall be both educational and supportive to the family/support system as is deemed clinically appropriate. Discharge Needs To be determined. Session Attendance Variance 60 minutes, including record review, clinical interview and report write-up. Thank you Thank you for the opportunity to assist in this patients care. Cesar Chacko, Ph.D., ABPP Board Certified in Clinical Neuropsychology [place] [employer] [place] Licensed Psychologist #[id number] Cesar Chacko PhD Aug 28, 2016 1:46 pm
--- NOTE | 2016-08-28 14:22 | PD.CONS ---
Provisional Diagnosis Admission Date Aug 25, 2016 at 18:47 [place] I. Major depressive disorder, recurrent, severe without psychosis, unspecified anxiety, history of cocaine and cannabis use disorder [place] II. Deferred [place] III. HAV, A. fib, lung carcinoma, pneumonia, KVNG [place] IV. HIV diagnosed in 1996 [place] V. 55 History of Present Illness Service Psychiatry Consult Requested By Primary Care Physician Jaime Perales MD HPI The patient is a 41-year-old woman, but , domicile with her 16 years old son, unemployed, with psychiatric history of depression and anxiety, no previous psychiatric hospitalizations, no previous suicidal attempts, cocaine and cannabis use disorder, medical history of HIV diagnosed in 1996, A. 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 As per nurse in charge, the patient has been having difficulties accepting her diagnosis of cancer, she has been coping very poorly and has been constantly crying desperately. Patient was seen for psychiatric evaluation in the ICU, she was found calm, cooperative and pleasant, with episodes of emotional tears. Patient explained that she was diagnosed with HIV at the age of [age] years old in 1996 and at that time she was devastated and she thought that he was the end of the world. But, now she has been recently diagnosed with cancer and since then she has been reexperiencing this same emotions, feelings, frustration that she had when she was 22-year-old. She says that in the last month there is no one day that she hasn't cried at least 3 times, she has felt desperate, hopeless , helpless, pessimistic, with very poor energy, unable to get out of bed. When she thought that she was gaining some strength to continue with her life was getting ready to proceed with her treatment for the lung cancer then she was diagnosed with pneumonia and had treatment for cancer is now being delay. However, patient stated that she is a strong person, she has been very difficult situations in her life in the past and she has survive and she feels faithful at this time is not going to be the exception and she is going to win the bottle, "but is just so sad doc, I just need to help clarify my mind". She has been diagnosed with depression, he was given Prozac 10 mg by her PCP, she was also given alprazolam 0.5 mg 2 times a day, she says it was sometimes helpful, but not enough. At this moment the patient denies suicidal and homicidal ideation. She denies visual and auditory hallucinations. Patient endorses important protective factors for suicidality such as his spirituality, strong family support, future goals of helping and other people, strong scientologist background. She denies paranoia, delusions, visual and auditory hallucinations. Patient is oriented 3. She reports almost daily use of cocaine and marijuana for about when he is now. She denies alcohol and other illicit drugs. She is a former smoker of nicotine, one pack every today. Review of Systems Constitutional: DENIES: Diaphoretic episodes, Fatigue, Fever, Weight gain, Weight loss, Chills, Dizziness, Change in appetite, Night Sweats Endocrine: DENIES: Abnorml menstrual pattern, Heat/cold intolerance, Polydipsia , Polyuria, Polyphagia Eyes: DENIES: Blurred vision, Diplopia, Eye inflammation, Eye pain, Vision loss , Photosensitivity, Double Vision Ears, nose, mouth, throat: DENIES: Tinnitus, Hearing loss, Vertigo, Nasal discharge, Oral lesions, Throat pain, Hoarseness, Ear Pain, Running Nose, Epistaxis, Sinus Pain, Toothache, Odynophagia Respiratory: COMPLAINS OF: Cough, Shortness of breath, DENIES: Apneas, Snoring , Wheezing, Hemoptysis, Sputum production Cardiovascular: DENIES: Chest pain, Palpitations, Syncope, Dyspnea on Exertion , PND, Lower Extremity Edema, Orthopnea, Claudication Gastrointestinal: DENIES: Abdominal pain, Black stools, Bloody stools, Constipation, Diarrhea, Nausea, Vomiting, Difficulty Swallowing, Anorexia Genitourinary: DENIES: Abnormal vaginal bleeding, Dysmenorrhea, Dyspareunia, Sexual dysfunction, Urinary frequency, Urinary incontinence, Urgency, Hematuria , Dysuria, Nocturia, Vaginal discharge Integumentary: DENIES: Abnormal pigmentation, Pruritus, Rash, Nail changes, Breast masses, Breast skin changes, Nipple discharge Hematologic/lymphatic: DENIES: Bruising, Lymphadenopathy Neurologic: DENIES: Abnormal gait, Headache, Localized weakness, Paresthesias, Seizures, Speech Problems, Tremor, Poor Balance Psychiatric: COMPLAINS OF: Anxiety, Depression, DENIES: Confusion, Mood changes, Hallucinations, Agitation, Suicidal Ideation, Homicidal Ideation, Delusions Past Family Social History Coded Allergies: Codeine (Verified Allergy, Intermediate, 08/25/16) nausea Reported Medications Darunavir (Prezista)800 Mg Rep646 Mg PO DAILY #30 TAB Ref 0 08/27/16 Uakbswdnzqbx-Ihrgmrntla-Qdoaaibrhyuw-Tenofvir (Genvoya)[id number] Mg Tab1 Tab PO DAILY #30 TAB Ref 0 08/27/16 Current Medications Medications (Trade) Dose Ordered Sig/Darin Route Start Time Stop Time Status Last Admin (NS 1000 ml Inj) 1,000 ml @ 100 mls/hr Q10H IV 08/25/16 21:00 08/28/16 09:35 (Lovenox Inj) 40 mg Q24H SQ 08/25/16 21:00 08/27/16 22:50 (Narcan Inj) 0.4 mg UNSCH PRN IV 08/25/16 21:00 (Mucinex Er) 600 mg BID PO 08/26/16 09:00 08/28/16 09:10 Methylprednisolone Sodium Succinate 40 mg 40 mg Q8HR IV PUSH 08/26/16 10:00 08/28/16 13:26 Potassium Chloride 100 ml @ 50 mls/hr Q2H PRN IV 08/26/16 05:15 (KCl 20 Meq Premix Inj) 100 ml @ 50 mls/hr Q2H PRN IV 08/26/16 05:15 Potassium Chloride 40 meq 40 meq UNSCH PRN PO/TUBE 08/26/16 05:15 08/26/16 08:16 Potassium Chloride 100 ml @ 25 mls/hr UNSCH PRN IV 08/26/16 05:15 Potassium Chloride 100 ml @ 50 mls/hr Q2H PRN IV 08/26/16 05:15 (Magnesium Sulfate Inj/NS Inj) 100 ml @ 50 mls/hr UNSCH PRN IV 08/26/16 05:15 Magnesium Oxide 800 mg 800 mg UNSCH PRN PO 08/26/16 05:15 (Magnesium Sulfate Inj/NS Inj) 100 ml @ 50 mls/hr UNSCH PRN IV 08/26/16 05:15 Potassium Phosphate 2000 mg 2,000 mg Q4H PRN PO 08/26/16 05:15 08/27/16 17:01 (Sodium Phosphate Inj/NS 250 ml Inj) 250 ml @ 42 mls/hr UNSCH PRN IV 08/26/16 05:15 (KCl 40 Meq/30 ml Liq) 40 meq UNSCH PRN PO/TUBE 08/26/16 05:15 Potassium Phosphate 2000 mg 2,000 mg UNSCH PRN PO/TUBE 08/26/16 05:15 (Potassium Phosphate Inj/NS 250 ml Inj) 260 ml @ 42 mls/hr UNSCH PRN IV 08/26/16 05:15 (Protonix) 40 mg DAILY PO 08/26/16 09:00 08/28/16 09:10 (NS Flush) 2 ml UNSCH PRN IV FLUSH 08/26/16 11:30 (NS Flush) 2 ml BID IV FLUSH 08/26/16 21:00 08/28/16 09:00 (Tylenol) 650 mg Q6H PRN PO 08/26/16 11:30 (Zofran Inj) 4 mg Q6H PRN IV 08/26/16 11:30 Miscellaneous Information 1 Q361D XX 08/26/16 11:30 08/26/16 11:54 (Chlorhexidine 2% Cloth) 3 pack Taper DAILY@04 TOP 08/27/16 04:00 08/23/17 03:59 (Chlorhexidine 2% Cloth) 3 pack UNSCH PRN TOP 08/26/16 11:30 (D50w (Vial) Inj) 25 ml UNSCH PRN IV PUSH 08/26/16 14:00 Glucagon 1 mg 1 mg UNSCH PRN OTHER 08/26/16 14:00 Azithromycin 500 mg/Sodium Chloride 250 ml @ 250 mls/hr Q24H IV 08/26/16 20:00 08/27/16 22:47 (Zosyn 3.375 Gm Premix) 50 ml @ 100 mls/hr Q6H IV 08/27/16 00:00 08/28/16 13:25 (Ativan Inj) 1 mg Q4H PRN IV 08/27/16 12:00 08/28/16 13:32 Acetaminophen 1000 mg 1,000 mg Q6H PRN IV 08/27/16 12:00 08/30/16 11:59 (Cardizem Inj/NS Inj) 125 ml @ 0 mls/hr TITRATE IV 08/27/16 13:00 08/27/16 20:32 (Viread) 300 mg HS PO 08/27/16 21:00 (Prezista) 800 mg HS PO 08/27/16 22:00 08/27/16 22:48 Patient Own Medication PT OWN MED: GENVOYA COMBINAT... 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, calm, cooperative, tearful Speech: Unremarkable Orientation: x3 Memory: Unremarkable Thought Process: Logical Thought Content: Unremarkable Hallucination Type: None Suicidal Ideation: No Homicidal Ideation: No Previous Homicide Attempts: No Judgement: WNL Affect: Sad Mood: Sad Motor Activity: Normal gait Assessment & Plan Problem List: (1) Major depressive disorder Assessment & Plan: The patient is a 41-year-old woman with psychiatric history of depression and anxiety, no previous psychiatric hospitalizations, no previous suicidal attempts, cocaine and cannabis use disorder, medical history of HIV diagnosed in 1996, A. 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 On psychiatric evaluation patient reports about 1 month of severe symptomatology of depression secondary to recent diagnosis of lung cancer and recently exacerbated by hospitalization due to pneumonia. Patient reports hopelessness, helplessness, frequent crying spells, anxiety, generalized pessimism, low energy, low appetite, poor sleep, but denies suicidal ideation, denies visual and auditory hallucinations, denies paranoia, denies ideas of reference and other psychotic symptom. Patient seems to have positive protective factors of suicidality including spirituality, good family support, motivation to get better and she is future oriented. Extensive support, psychoeducation and motivation were provided to the patient during this evaluation. Will increase Prozac to 40 mg daily to help with depression, will restart alprazolam 0.5 mg 3 times a day for anxiety. Will follow up. ICD Code: F32.9 Assessment & Plan Estimated LOS: days Problem Qualifiers (1) Major depressive disorder: Gerardo Hernandez MD Aug 28, 2016 14:21
--- NOTE | 2016-08-28 14:36 | EC ---
Study Study Date:08/28/2016 STUDY CONCLUSIONS SUMMARY - Left ventricle: The cavity size was normal. Wall thickness was normal. Systolic function was normal. The estimated ejection fraction was in the range of 55% to 60%. Wall motion was normal; there were no regional wall motion abnormalities. - Aortic valve: Valve area: 2.39cm^2 (Vmax). - Tricuspid valve: Mild regurgitation. - Pulmonary arteries: PA peak pressure: 31mm Hg (S). If LV function is below 40, please consider prescribing an ACEI or ARB or document rationale for non-use. PROCEDURE DATA STUDY STATUS: Elective. Procedure: Transthoracic echocardiography. Image quality was good. Scanning was performed from the parasternal, apical, and subcostal acoustic windows. Study completion: The patient tolerated the procedure well. Transthoracic echocardiography. M-mode, complete 2D, complete spectral Doppler, and color Doppler. Height: Height: 64in. Weight: Weight: 131.7lb. Body mass index: BMI: 22.7kg/m^2. Body surface area: BSA: 1.64m^2. Patient status: Inpatient. CARDIAC ANATOMY LEFT VENTRICLE: The cavity size was normal. Wall thickness was normal. Systolic function was normal. The estimated ejection fraction was in the range of 55% to 60%. Wall motion was normal; there were no regional wall motion abnormalities. AORTIC VALVE: Trileaflet; normal thickness leaflets. Doppler: Transvalvular velocity was within the normal range. There was no stenosis. No regurgitation. Valve area: 2.39cm^2 (Vmax). Indexed valve area: 1.46cm^2/m^2 (Vmax). AORTA: Aortic root: The aortic root was normal in size. MITRAL VALVE: Structurally normal valve. Doppler: Transvalvular velocity was within the normal range. There was no evidence for stenosis. Trace to mild regurgitation. LEFT ATRIUM: The atrium was normal in size. RIGHT VENTRICLE: The cavity size was normal. Wall thickness was normal. PULMONIC VALVE: Doppler: Transvalvular velocity was within the normal range. There was no evidence for stenosis. No regurgitation. TRICUSPID VALVE: Structurally normal valve. Doppler: Transvalvular velocity was within the normal range. Mild regurgitation. PULMONARY ARTERY: The main pulmonary artery was normal-sized. Systolic pressure was within the normal range. RIGHT ATRIUM: The atrium was normal in size. PERICARDIUM: There was no pericardial effusion. SYSTEMIC VEINS: Inferior vena cava: The vessel was normal in size. Patient weight: 131.7lb _Ejection fraction:_ 65-75% _Fractional shortening:_ 32% up to 5Kg 5-11.5Kg 11.6-22.9Kg 23-45Kg 45-57Kg Aortic Root 7-13 <17 13-22 17-27 17-27 LA diam 6-13 <23 24-38 33-47 37-40 RVID 10-17 7-15 7-15 7-18 8-17 LVIDd 12-22 <32 24-38 33-47 37-40 LVPW 2-4 3-6 5-7 6-8 7-8 IVS 2-4 3-6 5-7 6-8 7-8 BASIC MEASUREMENTS ADULT NORMAL Left ventricle LV internal dimension, ED, chordal 43.1 mm 43-52 level, PLAX LV internal dimension, ES, chordal 29.6 mm 23-38 level, PLAX Fractional shortening, chordal level, 31 % >29 PLAX LV posterior wall thickness, ED 8.46 mm IVS/LVPW ratio, ED 1.06 <1.3 Ventricular septum Septal thickness, ED 8.94 mm Aortic valve Leaflet separation 20 mm 15-26 BASIC MEASUREMENTS ADULT NORMAL Aortic valve Leaflet separation 20 mm 15-26 Aorta Root diameter, ED 25 mm 20-37 Left atrium Anterior-posterior dimension, ES 25 mm 19-40 Anterior-posterior dimension index, ES 1.52 cm/m^2 <2.2 LA/aortic root ratio 1 DOPPLER MEASUREMENTS ADULT NORMAL Main pulmonary artery Pressure, S *31 mm Hg =30 Aortic valve Peak velocity, S 145 cm/s Valve area, Vmax 2.39 cm^2 Valve area index, Vmax 1.46 cm^2/m^2 Mitral valve Maximal regurgitant velocity 256 cm/s Tricuspid valve Regurgitant peak velocity 179 cm/s Peak RV-RA gradient, S 13 mm Hg Maximal regurgitant velocity 179 cm/s Systemic veins Estimated CVP 10 mm Hg Right ventricle RV pressure, S *37 mm Hg <30 Pulmonic valve Peak velocity, S 124 cm/s LEGEND: Mean values are shown as u=mean value. Asterisk (*) hazel values outside specified normal range. Prepared and signed by Thierno Hummel [id number]
[2016-08-28] MEDS: ALPRAZolam 0.5 MG TAB PO SCH ×2 (15:21→22:47)
--- NOTE | 2016-08-28 17:04 | HHI.CCPN ---
Subjective Remarks/Hospital Course Ms Sanabria is a 41 year old female with PMH significant for HIV diagnosed in 1996 with recent CD4 count 383 1 month ago (reported by pt). The patient presented to the ED with C/O severe right-sided chest pain and shortness of breath. She reported her symptoms began 4 days ago consisting of head and nasal congestion a productive cough with yellow sputum.The patient progressively worsened and called EMS. The patient reported a small amount of hemoptysis while in the ED. In the ED she had chest pain on a VAS scale of 7/10 . She denies left-sided chest pain, palpitations or radiation of pain. Denies abdominal pain, no N/V or diarrhea. The patient was admitted by family medicine. The patient's medical providers-Dr. Muñoz is her infectious disease physician. She states sheis on HAART therapy and takes Genvoya and Prezista each night. Her deputy prosecuting attorney is Dr. Florez, . She was treated by Dr. Florez for pneumonia approximately one month ago. She states she was found to have stage I lung cancer while being worked up for the pneumonia last month. She is now following with Dr. Colmenares her oncologist after her lung mass was found. Chemotherapy and radiation therapy have not been initiated yet. Overnight her BPs dropped from 120s systolic in the ED declining to 80s/40s. She received 4 liters total of fluids and is more stable this am. Her pulmonary condition worsened overnight and she required a nonrebreather mask.patient has been weaned down to 6 liter nasal canula. She is more comfortable with her pain and was evaluated for a PE and is clear. She experiences dyspnea with standing. The patient was a [facility] transfer to [facility] overnight.Critical care medicine is consulted for treatment and management of pneumonia/sepsis in the setting of immunocompromise state. 3/5: The patient's lactate level is trending down this a.m.. ID was consult, Dr. De La Cruz-plan to resume HAART medications today. This a.m. the patient went into A. fib with RVR, heart rate 150s. Metoprolol given 2.5 mg 2 doses which was ineffective. The patient was then given Cardizem 20 mg, and placed on a Cardizem infusion, now rate controlled. Troponin slightly elevated most likely secondary to demand ischemia, cardiology was consulted for new onset A. fib, echo pending. The patient was very anxious and crying all morning, stating she normally takes 0.5 mg of Ativan when necessary for anxiety. The patient was given 1 mg of Ativan, with good results. 08/28 Cardizem drip changed to by mouth Cardizem 4 times a day with a good response and a heart rate Objective Vital Signs Date Time Temp Pulse Resp B/P Pulse Ox O2 Delivery O2 Flow Rate FiO2 08/28/16 14:00 105 08/28/16 12:00 97.9 20 132/79 98 08/28/16 08:36 Nasal Cannula 4.00 08/26/16 07:40 50 Intake and Output 08/27/16 08/27/16 08/28/16 08:00 16:00 00:00 Intake Total 750 ml 848 ml 529 ml Output Total 400 ml 700 ml 1000 ml Balance 350 ml 148 ml -471 ml Result Diagram: 08/28/16 0614 08/28/16 0614 Other Results Microbiology Date/Time Procedure Status Source Growth 08/25/16 17:15 Gram Stain - Final Complete Sputum Expectorated Sputum 08/25/16 17:15 Sputum Culture - Final Complete Sputum Expectorated Sputum HEAVY GROWTH NORMAL RESPIRATORY OPAL 08/26/16 08:10 Legionella Antigen - Final Complete Urine Clean Catch PRESUMPTIVE NEGATIVE FOR LEGIONELLA P... 08/26/16 08:10 Streptococcus pneumoniae Antigen (M - Final Complete Urine Clean Catch PRESUMPTIVE NEGATIVE FOR STREPTOCOCCU... Imaging Last Impressions Chest X-Ray 08/26/16 0600 Signed Impressions: Service Date/Time: Friday, August 26, 2016 05:57 - CONCLUSION: Worsening airspace disease Juma Hill MD CT Angiography 08/25/16 0000 Signed Impressions: Service Date/Time: Thursday, August 25, 2016 18:01 - CONCLUSION: Dense consolidation in the right upper lobe characteristic of pneumonitis. Rounded pneumonia versus mass in the right lower lobe measuring 18 mm. No evidence of pulmonary embolism. Hu Seaman MD Objective Remarks GENERAL: This is a thin appearing female, crying , depressed in moderate distress heart rate 150s SKIN: Warm and dry. HEAD: Atraumatic. Normocephalic. EYES: Pupils equal and round. No scleral icterus. No injection or drainage. ENT: No nasal bleeding or discharge. Mucous membranes pink and moist. Uvula midline. Currently nasal cannula at 2 L NECK: Trachea midline. No JVD. CARDIOVASCULAR: A. fib with RVR, regular rhythm. RESPIRATORY: No accessory muscle use. Coarse breath sounds bilateral lower lobe to auscultation. Breath sounds equal bilaterally. GASTROINTESTINAL: Abdomen soft, non-tender, nondistended. No guarding. MUSCULOSKELETAL: Extremities without clubbing, cyanosis, or edema. No obvious deformities. NEUROLOGICAL: Awake and alert. RASS 0. Cranial nerves II-XII grossly intact No gross focal/sensory deficits. Follows commands in all 4 extremities. A/P Assessment and Plan Plan by systems: Neurologic: Depression Continue Prozac Discontinue morphine, due to histamine release and possible respiratory depression in the setting of hypoxia Discontinue ketorolac secondary to renal insufficiency Continue Tylenol when necessary, will consider IV Ofirmev for VAS pain scale 7- 10 Psychiatry consult for depression and coping mechanisms regarding disease process appreciated Respiratory: Tobacco abuse Carcinoma left lower lobe Pneumonia Acute hypoxic respiratory distress Maintain O2 sat greater than 92% Continue to wean nasal cannula 1-4 liters per minute Continue incentive spirometry 10 breaths every hour while awake currently 1000 cc/per breath Continue bronchodilators every 6 hours, scheduled and every 2 hours when necessary To new Solu-Medrol 40 mg every 8 hours Begin EZPap and Acapella Continue empiric antibiotics azithromycin and cefepime(day 3) Consider nicotine patch Patient counseled on cessation of smoking ID consulted Dr. De La Cruz-follow recommendations, patient will resume HAART medicine per recommendations Cardiovascular: Sinus tachycardia Hypotension-resolved New onset A. fib with RVR Hep-Lock IV Telemetry Maintain MAP greater than 65mmHg Metoprolol 2.5 mg 2 doses , Cardizem 20 mg IV 1 . Begin Cardizem infusion- plans for transition to PO Obtain EKG Cardiology consulted Renal: Renal insufficiency-resolved Prerenal Azotemia Creatinine improving 0.9 Avoid nephrotoxins, NSAID's FeNa .09, Urine Osmo- WNL creatinine kinase-WNL -- Strict I/Os FEN/GI: Metabolic uzycwlfo-vbo-shxzz gap Elevated lactate level D/C NS IVF Regular diet Zofran for nausea Protonix for GI prophylaxis Heme/ID: Sepsis Pneumonia HIV Elevated lactate level Leukocytosis Obtain CD4-patient reports one month ago 383, report per patient at private physician office Obtain AFB smear Resume HAART medications F/U Pneumococcal Antigen TB PCR- neg Monitor serial lactic levels, 1.4-> 2.3 Obtain LDH level WNL ID consulted Dr. De La Cruz-follow recommendations, patient will resume HAART medicine per recommendations Monitor CBC-WBC 11.6-> 15 today Endocrine: Glucose monitoring per ICU protocol, low regimen -- SSI Prophylaxis: GI Prophylaxis Protonix DVT Prophylaxis -- SCDs Lovenox 40mg/day Lines: Peripheral IVs 2. Central line if indicated. Patient has been comfortable on nasal cannula hemodynamically stable not on pressors IV Cardizem drip was discontinued patient is tolerating by mouth Cardizem with good rate control. Critical care medicine will sign off. Please reconsult us if needed. Thank you very much for allowing us to participate in care of this pleasant lady. Edil Albert MD Aug 28, 2016 17:04
[2016-08-28] MEDS: AZITHROMYCIN 500 MG/NS 250 ML IV SCH ×2 (20:15)
[2016-08-28] MEDS: DARUNAVIR 800 MG TAB PO SCH (20:16)
[2016-08-28] MEDS: ENOXAPARIN SODIUM 40 MG/0.4 ML SYRINGE SQ SCH (20:17)
[2016-08-28] MEDS: TENOFOVIR DISOPROXIL FUMARATE 300 MG TAB PO SCH (20:17)
[2016-08-28] MEDS: [UNRECOGNIZED DRUG - OTHER] PO SCH (20:35)
--- NOTE | 2016-08-28 22:19 | MB ---
cc: ABRAHAM DAVIS M.D. DATE OF CONSULTATION 08/28/2016 REASON FOR CONSULTATION Evaluation of atrial fibrillation. HISTORY OF THE PRESENT ILLNESS Ayana Sanabria is a 41-year-old woman diagnosed with HIV in 1996 who comes in now with pneumonia. She also apparently has some type of lung tumor. She has been followed by infectious disease doctor. She was in sinus tachycardia on August 25, was also in sinus tachycardia on August 26. On August 27 she had atrial fibrillation found on EKG at 08:42 a.m. She was back in sinus rhythm by 6:54 p.m. rhythm strip. She is still sinus at this time with intermittent sinus tachycardia but I do not see any a fib. She is started on diltiazem 30 mg q.i.d. and I was asked to consult for further recommendations. The patient's chest pain and dyspnea have improved some since she has been here. She has no acute cardiac complaints. PAST MEDICAL HISTORY Is well documented in Dr. Luann Orozco's history and physical. SOCIAL HISTORY She is a smoker. Denies illicit drug use. FAMILY HISTORY Negative for heart disease. PAST SURGICAL HISTORY Surgical history includes two previous C-sections. PHYSICAL EXAMINATION GENERAL: Reveals a well-developed, well-nourished -[place] female in no acute distress. VITAL SIGNS: Charted. HEENT: Exam unremarkable. NECK: No JVD, no bruits. CHEST: Shows coarse breath sounds in the lower lobes. No wheezes. CARDIOVASCULAR: S1-S2, regular rate and rhythm. While talking to her, her sinus rate went up but she is still sinus. ABDOMEN: Soft, nontender. EXTREMITIES: No clubbing, cyanosis, edema. EKGs initially showed only sinus rhythm. She does have an EKG yesterday morning that was showing a fib with RVR. There are no acute ST-T wave changes. Echo shows normal LV function. Normal left atrial size. LABORATORY DATA laboratories are charted. Chest x-ray report from today reads slight interval improvement in the right upper lobe infiltrate and left-sided effusion. IMPRESSION Paroxysmal atrial fibrillation in the setting of pneumonia, currently back in sinus rhythm. RECOMMENDATIONS Change her Cardizem to CD 180 mg daily tomorrow. I will be available to follow up on an as needed basis. Please call if there are any questions. I would not anticoagulate her with any systemic anticoagulants at this point. MD BRITANY Enriquez/YESSICA /5:33 PM /10:07 PM
[2016-08-29] VITALS (13 sets, daily range): BP systolic 123–141; BP diastolic 70–80; PULSE 64–100; RESP 16–37; TEMP 97.7–99; O2SAT 91–95
[2016-08-29] MEDS: RESP: ALBUTEROL 2.5 MG/IPRATROPIUM 0.5 MG NEB (SCH) NEB ×4 (03:53→22:44)
[2016-08-29] MEDS: CHLORHEXIDINE GLUCONATE 2 % 1 PACK (2 CLOTHS) TOP SCH (04:00)
[2016-08-29] MEDS: PIPERACIL-TAZO 3.375 GM PREMIX 50 ML IV SCH ×4 (06:14→23:19)
[2016-08-29] MEDS: methylPREDNISolone SOD SUCC 40 MG/1 ML VIAL IV PUSH SCH ×3 (06:15→21:08)
[2016-08-29] MEDS: ALPRAZolam 0.5 MG TAB PO SCH ×3 (06:15→21:07)
[2016-08-29] MEDS: SODIUM CHLOR 0.9% 1000 ML INJ 1,000 ML IV SCH (06:15)
[2016-08-29] MEDS: INSULIN NovoLIN REGULAR SUPPLEMENTAL SCALE SQ SCH ×4 (06:16→21:28)
[2016-08-29 07:06] LABS: BASOPHIL % 0.1 % (0.0-2.0); HEMATOCRIT 29.5 % (35.0-46.0); LYMPH % 6.4 % (9.0-44.0); LYMPHOCYTE # 0.6 TH/MM3 (1.0-4.8); MEAN CELL VOLUME 101.7 FL (80.0-100.0); MEAN CORPUSCULAR HEMOGLOBIN 35.8 PG (27.0-34.0); MEAN CORPUSCULAR HGB CONC 35.2 % (32.0-36.0); MONO % 2.5 % (0.0-8.0); PLATELET COUNT 131 TH/MM3 (150-450); RED CELL DISTRIBUTION WIDTH 17.2 % (11.6-17.2); WHITE BLOOD COUNT 8.8 TH/MM3 (4.0-11.0)
[2016-08-29 07:14] LABS: HEMO FLAGS AUTO DIFF
[2016-08-29 07:43] LABS: ALT (GPT) 34 U/L (10-53); ANION GAP 10 MEQ/L (5-15); AST (GOT) 10 U/L (15-37); BICARBONATE 21.9 MEQ/L (21.0-32.0); BLOOD UREA NITROGEN 12 MG/DL (7-18); CHLORIDE 113 MEQ/L (98-107); GLOMERULAR FILTRATION RATE 144 ML/MIN (>89); MAGNESIUM 1.9 MG/DL (1.5-2.5); POTASSIUM 3.6 MEQ/L (3.5-5.1); SODIUM (NA) 145 MEQ/L (136-145)
[2016-08-29 07:46] LABS: ALKALINE PHOSPHATASE 52 U/L (45-117); TOTAL BILIRUBIN ADULT 0.3 MG/DL (0.2-1.0)
[2016-08-29 08:20] LABS: BANDS 16 % (0-6); MYELOCYTES 1 % (0-0); POLYS (SEG NEUTROPHILS) 63 % (16-70); WBC DIFF SAMPLE 100
[2016-08-29 08:21] LABS: PLATELET ESTIMATE SMEAR LOW (NORMAL); PLATELET MORPHOLOGY NORMAL (NORMAL); SCAN/DIFF FINAL DIFF MANUAL
--- NOTE | 2016-08-29 08:23 | HHI.FPPN ---
Subjective Remarks No acute events overnight. This morning patient reports that she is feeling better mentally. Her mood has improved. Denies chest pain, palpitations or SOB. Does complain of upper abdominal pain/soreness but does not endorse constipation. (Sita Mejia MD R2) Objective Vitals Vital Signs Date Time Temp Pulse Resp B/P Pulse Ox O2 Delivery O2 Flow Rate FiO2 08/29/16 06:00 77 08/29/16 04:00 99.0 91 36 123/73 95 08/29/16 04:00 91 08/29/16 02:00 78 08/29/16 00:00 98.3 90 37 125/71 92 08/29/16 00:00 90 08/28/16 22:00 109 08/28/16 21:08 95 Nasal Cannula 4.00 08/28/16 20:00 113 08/28/16 20:00 98.6 103 36 134/78 92 08/28/16 18:00 105 08/28/16 16:00 98.0 100 126/76 08/28/16 16:00 100 08/28/16 14:00 105 08/28/16 12:00 98 08/28/16 12:00 97.9 113 20 132/79 98 08/28/16 10:00 105 08/28/16 08:36 94 Nasal Cannula 4.00 I/O 08/28/16 08/28/16 08/28/16 08/29/16 08/29/16 08/29/16 07:00 15:00 23:00 07:00 15:00 23:00 Intake Total 546 ml 350 ml 1339 ml 902 ml Output Total 600 ml 950 ml 150 ml Balance -54 ml 350 ml 389 ml 752 ml Intake Oral 240 ml 480 ml IV Total 546 ml 350 ml 1099 ml 422 ml Output Urine Total 600 ml 950 ml 150 ml # Voids 2 2 1 # Bowel Movements 0 1 (Sita Mejia MD R2) Result Diagram: 08/29/1662408/29/16624 Objective Remarks GEN: Well-developed, well-nourished patient AAF lying in bed in NAD able to speak in full sentences. CV: Regular rhythm and rate without obvious murmurs, gallops, rubs. LUNGS: Clear to auscultation bilaterally. Normal respiratory effort. No wheezes , rales, rhonchi. GI: Soft, mild tenderness of the upper abdomen. Nondistended. No masses appreciated. EXT: No edema. No calf tenderness. NEURO/PSYCH: Awake, alert. Appropriate insight and judgment. Normal speech ( Sita Mejia MD R2) A/P Assessment and Plan Ms. Gonzalez is a 41 year old female with PMH significant for HIV with most recent CD4 count per patient 383 drawn about one month ago admitted for PNA. Discharge Planning 2-4 days pending rate control and continued clinical improvement. Transfer out of the unit today or tomorrow WDW: Dr. Diaz and Dr. Colmenares (iSta Mejia MD R2) Attending Attestation Patient seen and examined. Case reviewed and discussed with the resident team. Agree with plan of care as discussed with me and documented in the resident note. appreciate help of consults (Mary Diaz MD) Problem List: (1) Pneumonia Status: Acute Plan: Met sepsis criteria on admission with tachycardia, tachypnea, leukocytosis. Found to have right upper lobe pneumonitis. Associated with right-sided chest pain that was pleuritic in nature that has now resolved. On the night of admission, patient continued to have tachypnea with an increase oxygen supplementation requirement involving both nonrebreather and Ventimask. She also became hypotensive and required 4 L boluses. Critical care consulted on 08/26 but has signed off as of 08/28. -Leukocytosis has now resolved Leukocytosis with left shift. Improving lactic acidosis * Continue leukocytosis may be due to steroids -Nasal canula at 3 L -Blood, sputum, urine Legionella/Streptococcus culture: Unremarkable -Sputum culture for acid-fast: Pending -Mycobacterial culture: Pending -TB PCR: Not detected ID consulted: Appreciate recommendations * Discontinue vancomycin * Continue azithromycin * Change cefepime to Zosyn for possible aspiration pneumonia Imaging: * CXR 08/28: Slight interval clearance of infiltrates * CXR 08/26: Worsening airspace disease * CTA: Dense consolidation in the right upper lobe care to risk it of pneumonitis. Rounded pneumonia versus mass in the right lower lobe measuring 18 mm. No evidence of PE Medications: * Azithromycin 500 mg (08/25 * Zosyn (08/27- * Decrease Solu-Medrol 40mg IV to q12, will begin to taper down * Mucinex * Albuterol + Duonebs * Discontinued ABX: Vancomycin (3/4), Cefepime (3/4), Rocephin (3/3) (2) A-fib Status: Resolved Plan: Initially presented with sinus tachycardia on EKG with negative troponin 2. Converted to A. fib with RVR on 08/27 which has now resolved with Cardizem. -Does not need anticoagulation as CHADS2 score is 0 -Troponin: 0.19, 0.12 (Likely due to demand ischemia) -Echo: EF of 55-60%. Mild tricuspid regurgitation. -Cardiology consulted, appreciate recommendations * Cardizem CD 180mg (3) Sepsis Status: Resolved Plan: -See more detail plan above (4) Anxiety with depression Status: Acute Plan: Symptoms of anxiety and depression likely exacerbated by new diagnosis of cancer. Denies suicidal ideation -Ativan PRN, monitor respiratory status -Consulted neuropsychology: Appreciate recommendations * Alprazolam 0.5 mg q8 * Prozac 40 mg daily (5) Lung mass Status: Chronic Plan: - Patient states she will follow with Dr. Colmenares, oncology, for further evaluation and treatment regarding recent diagnosis of lung cancer (6) HIV (human immunodeficiency virus infection) Status: Chronic Plan: Last CD4 count per patient was 383 taken one month ago Continue home antiretroviral medications Genvoya and Prezista, Started 08/27 Absolute lymphocytes: Pending CD4 % cells: Pending Absolute CD4: Pending T-helper/suppressor ratio: Pending Absolute CD8 count: Pending (7) Nutrition, metabolism, and development symptoms Status: Acute Plan: Fluids: Discontinued NS at 100 cc/hr 08/29 Electrolytes: Grossly unremarkable, continue to monitor with electrolytes protocol Nutrition: Regular diet as tolerated DVT PPX: Lovenox 40 mg subq daily (Sita Mejia MD R2) Problem Qualifiers (1) Pneumonia: Qualified Code: J18.1 - Pneumonia of right middle lobe due to infectious organism (2) Sepsis: Qualified Code: A41.9 - Sepsis, due to unspecified organism Sita Mejia MD R2 Aug 29, 2016 08:23 Mary Diaz MD Sep 02, 2016 13:37
[2016-08-29] MEDS: guaiFENesin E.R. 600 MG TAB PO SCH ×2 (08:54→21:08)
[2016-08-29] MEDS: DILTIAZEM-CD 180 MG CAP ER PO SCH (08:54)
[2016-08-29] MEDS: PANTOPRAZOLE SOD 40 MG DELAYED RELEASE TAB PO SCH (08:54)
[2016-08-29] MEDS: FLUoxetine HCL 20 MG CAP PO SCH (08:55)
[2016-08-29] MEDS: SODIUM CHLORIDE 0.9% FLUSH 5 ML FLUSH IV FLUSH SCH ×2 (08:55→21:08)
[2016-08-29] MEDS: [UNRECOGNIZED DRUG - OTHER] PO SCH (21:00)
[2016-08-29] MEDS: DARUNAVIR 800 MG TAB PO SCH (21:07)
[2016-08-29] MEDS: AZITHROMYCIN 500 MG/NS 250 ML IV SCH ×2 (21:08)
[2016-08-29] MEDS: ENOXAPARIN SODIUM 40 MG/0.4 ML SYRINGE SQ SCH (21:08)
[2016-08-29] MEDS: TENOFOVIR DISOPROXIL FUMARATE 300 MG TAB PO SCH (21:09)
--- NOTE | 2016-08-29 23:20 | HHI.IDPN ---
Subjective Subjective Remarks delayed entry - pt was seen earlier today no fever on RA or low NC O2 settings feels much better Antibiotics pre[place] ha Allergies: Coded Allergies: Codeine (Verified Allergy, Intermediate, 08/25/16) nausea Objective . Vital Signs Date Time Temp Pulse Resp B/P Pulse Ox O2 Delivery O2 Flow Rate FiO2 08/29/16 22:44 93 08/29/16 20:00 98.5 68 16 138/70 95 08/29/16 18:34 71 08/29/16 16:25 98.2 65 16 133/75 95 08/29/16 14:00 67 08/29/16 12:00 100 08/29/16 12:00 97.8 100 18 141/80 91 08/29/16 10:00 74 08/29/16 08:07 94 Nasal Cannula 3.00 08/29/16 08:00 97.7 94 20 124/77 94 08/29/16 08:00 94 08/29/16 06:00 77 08/29/16 04:00 99.0 91 36 123/73 95 08/29/16 04:00 91 08/29/16 02:00 78 08/29/16 00:00 98.3 90 37 125/71 92 08/29/16 00:00 90 08/28/16 08/28/16 08/29/16 14:59 22:59 06:59 Intake Total 350 ml 1339 ml 902 ml Output Total 950 ml 150 ml Balance 350 ml 389 ml 752 ml Intake Oral 240 ml 480 ml IV Total 350 ml 1099 ml 422 ml Output Urine Total 950 ml 150 ml # Voids 2 2 1 # Bowel Movements 0 1 . Laboratory Tests Test 08/28/16 08/29/16 06:14 06:25 White Blood Count 13.8 TH/MM3 8.8 TH/MM3 Red Blood Count 2.91 MIL/MM3 2.90 MIL/MM3 Hemoglobin 10.2 GM/DL 10.4 GM/DL Hematocrit 30.0 % 29.5 % Mean Corpuscular Volume 102.9 FL 101.7 FL Mean Corpuscular Hemoglobin 35.0 PG 35.8 PG Mean Corpuscular Hemoglobin 34.0 % 35.2 % Concent Red Cell Distribution Width 17.5 % 17.2 % Platelet Count 130 TH/MM3 131 TH/MM3 Mean Platelet Volume 8.3 FL 8.6 FL Neutrophils (%) (Auto) 94.9 % 91.0 % Lymphocytes (%) (Auto) 2.6 % 6.4 % Monocytes (%) (Auto) 2.2 % 2.5 % Eosinophils (%) (Auto) 0.1 % 0.0 % Basophils (%) (Auto) 0.2 % 0.1 % Neutrophils # (Auto) 13.1 TH/MM3 8.0 TH/MM3 Lymphocytes # (Auto) 0.4 TH/MM3 0.6 TH/MM3 Monocytes # (Auto) 0.3 TH/MM3 0.2 TH/MM3 Eosinophils # (Auto) 0.0 TH/MM3 0.0 TH/MM3 Basophils # (Auto) 0.0 TH/MM3 0.0 TH/MM3 CBC Comment AUTO DIFF AUTO DIFF Differential Total Cells 100 100 Counted Neutrophils % (Manual) 84 % 63 % Band Neutrophils % 11 % 16 % Lymphocytes % 5 % 13 % Neutrophils # (Manual) 13.1 TH/MM3 7.0 TH/MM3 Differential Comment FINAL DIFF FINAL DIFF MANUAL MANUAL Platelet Estimate LOW LOW Platelet Morphology Comment NORMAL NORMAL Spherocytes OCC Target Cells 1+ Monocytes % 7 % Myelocytes 1 % Laboratory Tests Test 08/28/16 08/29/16 06:14 06:25 Sodium Level 142 MEQ/L 145 MEQ/L Potassium Level 3.5 MEQ/L 3.6 MEQ/L Chloride Level 111 MEQ/L 113 MEQ/L Carbon Dioxide Level 21.1 MEQ/L 21.9 MEQ/L Anion Gap 10 MEQ/L 10 MEQ/L Blood Urea Nitrogen 15 MG/DL 12 MG/DL Creatinine 0.74 MG/DL 0.56 MG/DL Estimat Glomerular Filtration 104 ML/MIN 144 ML/MIN Rate Random Glucose 146 MG/DL 132 MG/DL Calcium Level 8.1 MG/DL 8.2 MG/DL Phosphorus Level 2.3 MG/DL 2.6 MG/DL Magnesium Level 1.9 MG/DL 1.9 MG/DL Total Bilirubin 0.3 MG/DL Aspartate Amino Transf 10 U/L (AST/SGOT) Alanine Aminotransferase 34 U/L (ALT/SGPT) Alkaline Phosphatase 52 U/L Total Protein 5.9 GM/DL Albumin 2.6 GM/DL Imaging Last Impressions Chest X-Ray 08/28/16 0600 Signed Impressions: Service Date/Time: Sunday, August 28, 2016 04:28 - CONCLUSION: Slight interval improvement as detailed above. Nabil Mcgrath MD CT Angiography 08/25/16 0000 Signed Impressions: Service Date/Time: Thursday, August 25, 2016 18:01 - CONCLUSION: Dense consolidation in the right upper lobe characteristic of pneumonitis. Rounded pneumonia versus mass in the right lower lobe measuring 18 mm. No evidence of pulmonary embolism. Hu Seaman MD Physical Exam CONSTITUTIONAL/GENERAL: This is an adequately nourished patient, in no apparent distress. TUBES/LINES/DRAINS: SKIN: No jaundice, rashes, or lesions.Skin temperature appropriate. Not diaphoretic. EYES: Pupils equal and round and reactive. Extraocular motions intact. No scleral icterus. No injection or drainage. Fundi not examined. ENT: Hearing grossly normal. oral mucosae moist, poor dentition CARDIOVASCULAR: Regular rate and rhythm without murmurs, gallops, or rubs. No JVD. Peripheral pulses symmetric. RESPIRATORY/CHEST: Symmetric, unlabored respirations. Clear to auscultation. Breath sounds equal bilaterally. No wheezes, rales, or rhonchi. GASTROINTESTINAL: Abdomen soft, non-tender, nondistended. No hepato-splenomegaly , or palpable masses. No guarding. Bowel sounds present. MUSCULOSKELETAL: Extremities without clubbing, cyanosis, or edema. NEUROLOGICAL: Awake and alert. Non focal Assessment & Plan Remarks PNA underlying mass ? obstructive PNA - clx with nl resp gloria HIV, CD4 in 300 range - dc vanco - cont azithro PO - change zosyn to clindamycin PO - cont pt s' HAART Delmi De La Cruz MD Aug 29, 2016 23:20
[2016-08-29] MEDS: CLINDAMYCIN 150 MG CAP PO SCH (23:53)
[2016-08-30] VITALS (10 sets, daily range): BP systolic 125–162; BP diastolic 69–95; PULSE 62–112; RESP 16–18; TEMP 97.2–98.7; O2SAT 93–97
[2016-08-30 03:52] LABS: CD 19 PERCENT 39 % (6-29); CD3 ABSOLUTE 313 (840-3060); CD4/CD8 RATIO 0.5 (0.86-5.00); CD8 ABSOLUTE 202 (180-1170); LYMPHOCYTES, ABSOLUTE 554 (850-3900)
[2016-08-30] MEDS: CHLORHEXIDINE GLUCONATE 2 % 1 PACK (2 CLOTHS) TOP SCH (04:00)
[2016-08-30] MEDS: RESP: ALBUTEROL 2.5 MG/IPRATROPIUM 0.5 MG NEB (SCH) NEB ×2 (04:28→09:11)
[2016-08-30] MEDS: CLINDAMYCIN 150 MG CAP PO SCH ×4 (06:17→22:20)
[2016-08-30] MEDS: ALPRAZolam 0.5 MG TAB PO SCH ×3 (06:17→22:21)
[2016-08-30] MEDS: INSULIN NovoLIN REGULAR SUPPLEMENTAL SCALE SQ SCH ×4 (06:17→21:00)
[2016-08-30 07:20] LABS: HEMATOCRIT 31.4 % (35.0-46.0); MEAN CELL VOLUME 101.7 FL (80.0-100.0); MEAN CORPUSCULAR HEMOGLOBIN 35.1 PG (27.0-34.0); MEAN CORPUSCULAR HGB CONC 34.5 % (32.0-36.0); PLATELET COUNT 120 TH/MM3 (150-450); RED BLOOD COUNT 3.08 MIL/MM3 (4.00-5.30); RED CELL DISTRIBUTION WIDTH 16.9 % (11.6-17.2); WHITE BLOOD COUNT 6.7 TH/MM3 (4.0-11.0)
[2016-08-30 07:44] LABS: BICARBONATE 24.7 MEQ/L (21.0-32.0); POTASSIUM 3.5 MEQ/L (3.5-5.1)
[2016-08-30] MEDS: FLUoxetine HCL 20 MG CAP PO SCH (08:34)
[2016-08-30] MEDS: DILTIAZEM-CD 180 MG CAP ER PO SCH (08:34)
[2016-08-30] MEDS: AZITHROMYCIN 250 MG TAB PO SCH (08:34)
[2016-08-30] MEDS: PANTOPRAZOLE SOD 40 MG DELAYED RELEASE TAB PO SCH (08:34)
[2016-08-30] MEDS: methylPREDNISolone SOD SUCC 40 MG/1 ML VIAL IV PUSH SCH (08:35)
[2016-08-30] MEDS: guaiFENesin E.R. 600 MG TAB PO SCH ×2 (08:35→22:21)
[2016-08-30] MEDS: SODIUM CHLORIDE 0.9% FLUSH 5 ML FLUSH IV FLUSH SCH ×2 (08:36→22:22)
[2016-08-30 10:21] LABS: BANDS 2 % (0-6); CORRECTED NUCLEATED RBC 3 /100 WBC (0-0); METAMYELOCYTES 1 % (0-1); MYELOCYTES 2 % (0-0); NEUTROPHIL # MANUAL DIFF 5.9 TH/MM3 (1.8-7.7); POLYS (SEG NEUTROPHILS) 83 % (16-70); TARGET CELLS 1+ (NORMAL); WBC DIFF SAMPLE 100
[2016-08-30 10:22] LABS: PLATELET ESTIMATE SMEAR LOW (NORMAL); PLATELET MORPHOLOGY NORMAL (NORMAL); SCAN/DIFF FINAL DIFF MANUAL
--- NOTE | 2016-08-30 12:04 | HHI.FPPN ---
Subjective Remarks Patient seen and examined this morning with the patient's mother at bedside. No acute events overnight with VSS. Her chief complaint this morning is abdominal distention. She states that he began this morning and she is willing constant discomfort. She has had one episode of watery diarrhea this morning and endorses 1 bloody bowel movement overnight. However after discussing with nursing staff, they're unable to identify any bloody bowel movement and states that her distention is likely due to taking her Zithromax on an empty stomach. She has no other complaints and denies any fevers, chills, shortness of breath, chest pain, NVD, or calf tenderness. (Mukul Colmenares MD R1) Objective Vitals Vital Signs Date Time Temp Pulse Resp B/P Pulse Ox O2 Delivery O2 Flow Rate FiO2 08/30/16 09:12 93 21 08/30/16 08:00 97.3 84 16 125/76 93 08/30/16 06:21 96 08/30/16 05:00 98.3 80 18 157/81 08/30/16 00:00 98.2 76 16 131/69 95 08/29/16 22:44 93 08/29/16 20:00 64 08/29/16 20:00 98.5 68 16 138/70 95 08/29/16 18:34 71 08/29/16 16:25 98.2 65 16 133/75 95 08/29/16 14:00 67 I/O 08/29/16 08/29/16 08/29/16 08/30/16 08/30/16 08/30/16 07:00 15:00 23:00 07:00 15:00 23:00 Intake Total 902 ml 1010 ml 480 ml 480 ml Output Total 150 ml Balance 752 ml 1010 ml 480 ml 480 ml Intake Oral 480 ml 720 ml 480 ml 480 ml IV Total 422 ml 290 ml Output Urine Total 150 ml # Voids 1 1 1 2 (Mukul Colmenares MD R1) Result Diagram: 08/30/16 0647 08/30/16 0642 Objective Remarks GEN: Well-developed, well-nourished patient AAF lying in bed in NAD able to speak in full sentences. CV: Regular rhythm and rate without obvious murmurs, gallops, rubs. LUNGS: Clear to auscultation bilaterally. Normal respiratory effort. No wheezes , rales, rhonchi. GI: Soft, mildly distended with tenderness to deep palpation in all 4 quadrants. Positive bowel sounds. Negative rebound tenderness. No masses appreciated. EXT: No edema. No calf tenderness. NEURO/PSYCH: Awake, alert. Appropriate insight and judgment. Normal speech ( Mukul Colmenares MD R1) A/P Assessment and Plan Ms. Gonzalez is a 41 year old female with PMH significant for HIV with most recent CD4 count per patient 383 drawn about one month ago admitted for PNA. Discharge Planning Pending GI and ID recommendations. WDW: Dr. Diaz and Dr. Duggan (Mukul Colmenares MD R1) Attending Attestation Patient seen and examined. Case reviewed and discussed with the resident team. Agree with plan of care as discussed with me and documented in the resident note. she wants to go home and neglected to tell me she was having GI problems but is having problems and will be evaluated (Mary Diaz MD) Problem List: (1) Pneumonia Status: Acute Plan: Met sepsis criteria on admission with tachycardia, tachypnea, leukocytosis. Found to have right upper lobe pneumonitis. Associated with right-sided chest pain that was pleuritic in nature that has now resolved. On the night of admission, patient continued to have tachypnea with an increase oxygen supplementation requirement involving both nonrebreather and Ventimask. She also became hypotensive and required 4 L boluses. Critical care consulted on 08/26 but has signed off as of 08/28. -Leukocytosis has now resolved Leukocytosis with left shift. Improving lactic acidosis * Continue leukocytosis may be due to steroids -Nasal canula at 3 L -Blood, sputum, urine Legionella/Streptococcus culture: Unremarkable -Sputum culture for acid-fast: Negative -Mycobacterial culture: Pending -TB PCR: Not detected -Walk Test: Pass-Recommend no outpatient oxygen therapy ID consulted: Appreciate recommendations * Discontinue vancomycin and Zosyn * Continue azithromycin * Start Clindamycin Imaging: * CXR 08/28: Slight interval clearance of infiltrates * CXR 08/26: Worsening airspace disease * CTA: Dense consolidation in the right upper lobe care to risk it of pneumonitis. Rounded pneumonia versus mass in the right lower lobe measuring 18 mm. No evidence of PE Medications: * Azithromycin 500 mg (08/25 * Clindamycin (08/29- * Transition steroids to Prednisone 20mg BID * Mucinex * Albuterol + Duonebs * Discontinued ABX: Vancomycin (3/4), Cefepime (3/4), Rocephin (3/3) Zosyn (08/29) (2) Occult blood positive stool Status: Acute Plan: Patient with 2 day history of loose stools and one episode of bloody stool. Complaining today of mild ABD distension with mild tenderness to palpation. History of multiple ABX use. -Hemoccult: Positive -C. Diff: Pending -Enteric pathogens: Pending -Giardia: Pending -Stool ova and parasites: Pending -Stool WBC: Pending -GI consulted, appreciate recommendations (3) A-fib Status: Resolved Plan: Initially presented with sinus tachycardia on EKG with negative troponin 2. Converted to A. fib with RVR on 08/27 which has now resolved with Cardizem. -Does not need anticoagulation as CHADS2 score is 0 -Troponin: 0.19, 0.12 (Likely due to demand ischemia) -Echo: EF of 55-60%. Mild tricuspid regurgitation. -Cardiology consulted, appreciate recommendations * Cardizem CD 180mg (4) Sepsis Status: Resolved Plan: -See more detail plan above (5) Anxiety with depression Status: Acute Plan: Symptoms of anxiety and depression likely exacerbated by new diagnosis of cancer. Denies suicidal ideation -Ativan PRN, monitor respiratory status -Consulted neuropsychology: Appreciate recommendations * Alprazolam 0.5 mg q8 * Prozac 40 mg daily (6) Lung mass Status: Chronic Plan: - Patient states she will follow with Dr. Colmenares, oncology, for further evaluation and treatment regarding recent diagnosis of lung cancer (7) HIV (human immunodeficiency virus infection) Status: Chronic Plan: Last CD4 count per patient was 383 taken one month ago Continue home antiretroviral medications Genvoya and Prezista, Started 08/27 Absolute lymphocytes: 554 CD4 % cells: 18 Absolute CD4: 103 T-helper/suppressor ratio: 0.5 Absolute CD8 count: 202 Likely decrease in overall counts and CD4 counts due to acute PNA infection. Patient to follow up as an outpatient to continue monitoring CD4 count and start prophylactic ABX at that time. (8) Nutrition, metabolism, and development symptoms Status: Acute Plan: Fluids: None Electrolytes: Grossly unremarkable, continue to monitor with electrolytes protocol Nutrition: Regular diet as tolerated DVT PPX: Lovenox 40 mg subq daily (Mukul Colmenares MD R1) Problem Qualifiers (1) Pneumonia: Qualified Code: J18.1 - Pneumonia of right middle lobe due to infectious organism (2) Sepsis: Qualified Code: A41.9 - Sepsis, due to unspecified organism Mukul Colmenares MD R1 Aug 30, 2016 12:04 Mary Diaz MD Sep 02, 2016 13:38
[2016-08-30] MEDS: [UNRECOGNIZED DRUG - OTHER] PO SCH (21:00)
[2016-08-30] MEDS: TENOFOVIR DISOPROXIL FUMARATE 300 MG TAB PO SCH (22:20)
[2016-08-30] MEDS: DARUNAVIR 800 MG TAB PO SCH (22:20)
[2016-08-30] MEDS: ENOXAPARIN SODIUM 40 MG/0.4 ML SYRINGE SQ SCH (22:21)
[2016-08-30] MEDS: predniSONE 20 MG TAB PO SCH (22:21)
[2016-08-31] VITALS (9 sets, daily range): BP systolic 129–157; BP diastolic 73–96; PULSE 58–85; RESP 16–20; TEMP 96.4–98.8; O2SAT 93–99
[2016-08-31 00:28] LABS: C. DIFF EPI 027 PRESUMPTIVE NEGATIVE (NEGATIVE); C. DIFF TOXIN PCR NEGATIVE (NEGATIVE)
[2016-08-31] MEDS: CHLORHEXIDINE GLUCONATE 2 % 1 PACK (2 CLOTHS) TOP SCH (04:00)
[2016-08-31] MEDS: CLINDAMYCIN 150 MG CAP PO SCH ×4 (05:35→23:47)
[2016-08-31] MEDS: LORazepam 2 MG/ML VIAL IV PRN ×3 (05:36→23:47)
[2016-08-31] MEDS: ALPRAZolam 0.5 MG TAB PO SCH ×3 (05:37→21:58)
[2016-08-31] MEDS: INSULIN NovoLIN REGULAR SUPPLEMENTAL SCALE SQ SCH ×4 (05:42→21:00)
[2016-08-31 07:57] LABS: HEMATOCRIT 31.3 % (35.0-46.0); MEAN CELL VOLUME 102.1 FL (80.0-100.0); MEAN CORPUSCULAR HGB CONC 34.3 % (32.0-36.0); PLATELET COUNT 133 TH/MM3 (150-450); RED BLOOD COUNT 3.07 MIL/MM3 (4.00-5.30); RED CELL DISTRIBUTION WIDTH 16.5 % (11.6-17.2); REVIEW FLAG FINAL; WHITE BLOOD COUNT 6.5 TH/MM3 (4.0-11.0)
[2016-08-31 08:33] LABS: BICARBONATE 26.2 MEQ/L (21.0-32.0); POTASSIUM 3.6 MEQ/L (3.5-5.1)
--- NOTE | 2016-08-31 10:10 | HHI.FPPN ---
Subjective Remarks Patient seen and examined this morning. No acute events overnight with VSS. She continues to complain of mild lower ABD pain throughout the night and into this morning. She noticed overnight that when she went to the restroom she passed multiple, small blood clots from her vagina into the toilet. She states that she has not had a period in over a year and was told by a previous physician that she would not have them because she has ovarian cysts and uterine fibroids. When asked if she thinks this could be her getting her periods, she does not believe so because she has not had one in such a long time. She has no other complaints today and denies any fevers, chills, SOB, chest pain, NV, or calf tenderness. (Mukul Colmenares MD R1) Objective Vitals Vital Signs Date Time Temp Pulse Resp B/P Pulse Ox O2 Delivery O2 Flow Rate FiO2 08/31/16 07:50 98.1 61 20 142/73 96 08/31/16 06:52 18 08/31/16 05:37 97.2 78 16 147/79 93 08/31/16 00:00 97.3 60 16 157/96 94 08/30/16 20:54 97 Nasal Cannula 2.00 08/30/16 20:00 97.2 112 16 149/95 96 08/30/16 17:00 98.2 65 18 162/82 95 08/30/16 13:00 98.7 62 18 139/74 96 I/O 08/30/16 08/30/16 08/30/16 08/31/16 08/31/16 08/31/16 07:00 15:00 23:00 07:00 15:00 23:00 Intake Total 480 ml 720 ml 360 ml 350 ml Balance 480 ml 720 ml 360 ml 350 ml Intake Oral 480 ml 720 ml 360 ml 350 ml # Voids 2 2 2 1 # Bowel Movements 1 0 0 (Mukul Colmenares MD R1) Result Diagram: 08/31/1670608/31/16706 Objective Remarks GEN: Well-developed, well-nourished patient AAF lying in bed in NAD able to speak in full sentences. CV: Regular rhythm and rate without obvious murmurs, gallops, rubs. LUNGS: Clear to auscultation bilaterally. Normal respiratory effort. No wheezes , rales, rhonchi. GI: Soft, mildly distended with tenderness to deep palpation in all 4 quadrants. Positive bowel sounds. Negative rebound tenderness. No masses appreciated. EXT: No edema. No calf tenderness. NEURO/PSYCH: AAOx3. Very anxious and becomes tearful intermittently throughout interview. Normal speech (Mukul Colmenares MD R1) A/P Assessment and Plan Ms. Gonzalez is a 41 year old female with PMH significant for HIV with most recent CD4 count per patient 383 drawn about one month ago admitted for PNA. Discharge Planning Pending GI and ID recommendations. WDW: Dr. Diaz (Mukul Colmenares MD R1) Attending Attestation Patient seen and examined. Case reviewed and discussed with the resident team. Agree with plan of care as discussed with me and documented in the resident note. (Mary Diaz MD) Problem List: (1) Pneumonia Status: Acute Plan: Met sepsis criteria on admission with tachycardia, tachypnea, leukocytosis. Found to have right upper lobe pneumonitis. Associated with right-sided chest pain that was pleuritic in nature that has now resolved. On the night of admission, patient continued to have tachypnea with an increase oxygen supplementation requirement involving both nonrebreather and Ventimask. She also became hypotensive and required 4 L boluses. Critical care consulted on 08/26 but has signed off as of 08/28. -Leukocytosis has now resolved Leukocytosis with left shift. Improving lactic acidosis * Continue leukocytosis may be due to steroids -Nasal canula at 3 L -Blood, sputum, urine Legionella/Streptococcus culture: Unremarkable -Sputum culture for acid-fast: Negative -Mycobacterial culture: Pending -TB PCR: Not detected -Walk Test: Pass-Recommend no outpatient oxygen therapy ID consulted: Appreciate recommendations * Discontinue vancomycin and Zosyn * Continue azithromycin * Start Clindamycin Imaging: * CXR 08/28: Slight interval clearance of infiltrates * CXR 08/26: Worsening airspace disease * CTA: Dense consolidation in the right upper lobe care to risk it of pneumonitis. Rounded pneumonia versus mass in the right lower lobe measuring 18 mm. No evidence of PE Medications: * Azithromycin 500 mg (08/25 * Clindamycin (08/29- * Transition steroids to Prednisone 20mg BID * Mucinex * Albuterol + Duonebs * Discontinued ABX: Vancomycin (3/4), Cefepime (3/4), Rocephin (3/3) Zosyn (3/7) (2) Occult blood positive stool Status: Acute Plan: Patient with 2 day history of loose stools and one episode of bloody stool. Complaining today of mild ABD distension with mild tenderness to palpation. History of multiple ABX use. -Hemoccult: Positive -C. Diff: Pending -Enteric pathogens: Pending -Giardia: Pending -Stool ova and parasites: Pending -Stool WBC: Pending -GI consulted, appreciate recommendations (3) Irregular menstrual bleeding Status: Chronic Plan: Patient reports passing multiple small blood clots. She denies having a menstrual cycle for >1 year. Also endorses bloody stools. -Please see plan as above -Irregular menstrual cycle can be worked up as an outpatient after DC (4) A-fib Status: Resolved Plan: Initially presented with sinus tachycardia on EKG with negative troponin 2. Converted to A. fib with RVR on 08/27 which has now resolved with Cardizem. -Does not need anticoagulation as CHADS2 score is 0 -Troponin: 0.19, 0.12 (Likely due to demand ischemia) -Echo: EF of 55-60%. Mild tricuspid regurgitation. -Cardiology consulted, appreciate recommendations * Cardizem CD 180mg (5) Sepsis Status: Resolved Plan: -See more detail plan above (6) Anxiety with depression Status: Acute Plan: Symptoms of anxiety and depression likely exacerbated by new diagnosis of cancer. Denies suicidal ideation -Ativan PRN, monitor respiratory status -Consulted neuropsychology: Appreciate recommendations * Alprazolam 0.5 mg q8 * Prozac 40 mg daily (7) Lung mass Status: Chronic Plan: - Patient states she will follow with Dr. Colmenares, oncology, for further evaluation and treatment regarding recent diagnosis of lung cancer (8) HIV (human immunodeficiency virus infection) Status: Chronic Plan: Last CD4 count per patient was 383 taken one month ago Continue home antiretroviral medications Genvoya and Prezista, Started 08/27 Absolute lymphocytes: 554 CD4 % cells: 18 Absolute CD4: 103 T-helper/suppressor ratio: 0.5 Absolute CD8 count: 202 Likely decrease in overall counts and CD4 counts due to acute PNA infection. Patient to follow up as an outpatient to continue monitoring CD4 count and start prophylactic ABX at that time. (9) Nutrition, metabolism, and development symptoms Status: Acute Plan: Fluids: None Electrolytes: Grossly unremarkable, continue to monitor with electrolytes protocol Nutrition: Regular diet as tolerated DVT PPX: Held for possible GI bleed, SCD/TEDs (Mukul Colmenares MD R1) Problem Qualifiers (1) Pneumonia: Qualified Code: J18.1 - Pneumonia of right middle lobe due to infectious organism (2) Sepsis: Qualified Code: A41.9 - Sepsis, due to unspecified organism Mukul Colmenares MD R1 Aug 31, 2016 10:10 Mary Diaz MD Sep 02, 2016 13:39
--- NOTE | 2016-08-31 10:23 | PD.CONS ---
HPI History of Present Illness This is a 41 year old AA female with past medical history of HIV diagnosed in 1996, lung mass for which she is following with Dr. Colmenares as an OP and suppose to start chemo and radiation who is here for shortness of breath and right sided chest pain and was admitted for sepsis, and being treated fro pneumonia. GI have been consulted for anemia, heme (+) stools, bloody loose stool for 3 days. Patient has been on Azithromycin and clindamycin, however, stools are negative for C-diff, stool cx pending. Patient reports a total of 3 loose BMs with a string of bright red blood. She has a significant drop in hgb, this was 14.3 (08/25/16) ----> 10.7 today. She endorses severe lower abdomen pain that started last night and work her up from sleep. She denies history of GI bleed, never had EGD/colonoscopy before. She reports chronic severe GERD and indigestion. Reports bloating. Denies nausea, vomiting, hematemesis, or melena. Weight is an issue for her due to HIV and she is on Megace at home. PFSH Past Medical History HIV diagnosed in 1996 Lung mass Past Surgical History Bronchoscopy Coded Allergies: Codeine (Verified Allergy, Intermediate, 08/25/16) nausea Medications Current Medications Medications (Trade) Dose Ordered Sig/Darin Route Start Time Stop Time Status Last Admin (Lovenox Inj) 40 mg Q24H SQ 08/25/16 21:00 08/30/16 22:21 (Narcan Inj) 0.4 mg UNSCH PRN IV 08/25/16 21:00 (Mucinex Er) 600 mg BID PO 08/26/16 09:00 08/30/16 22:21 (Protonix) 40 mg DAILY PO 08/26/16 09:00 08/30/16 08:34 (NS Flush) 2 ml UNSCH PRN IV FLUSH 08/26/16 11:30 (NS Flush) 2 ml BID IV FLUSH 08/26/16 21:00 08/30/16 22:22 (Tylenol) 650 mg Q6H PRN PO 08/26/16 11:30 08/31/16 05:35 (Zofran Inj) 4 mg Q6H PRN IV 08/26/16 11:30 Miscellaneous Information 1 Q361D XX 08/26/16 11:30 08/26/16 11:54 (Chlorhexidine 2% Cloth) 3 pack Taper DAILY@04 TOP 08/27/16 04:00 08/23/17 03:59 08/30/16 04:00 (Chlorhexidine 2% Cloth) 3 pack UNSCH PRN TOP 08/26/16 11:30 (D50w (Vial) Inj) 25 ml UNSCH PRN IV PUSH 08/26/16 14:00 (Glucagon Inj) 1 mg UNSCH PRN OTHER 08/26/16 14:00 Lorazepam 1 mg 1 mg Q4H PRN IV 08/27/16 12:00 08/31/16 05:36 (Cardizem Inj/NS Inj) 125 ml @ 0 mls/hr TITRATE IV 08/27/16 13:00 08/27/16 20:32 (Viread) 300 mg HS PO 08/27/16 21:00 08/30/16 22:20 (Prezista) 800 mg HS PO 08/27/16 22:00 08/30/16 22:20 Patient Own Medication PT OWN MED: GENVOYA COMBINAT... HS PO 08/27/16 23:00 08/30/16 21:00 (PROzac) 40 mg DAILY PO 08/29/16 09:00 08/30/16 08:34 (Xanax) 0.5 mg Q8HR PO 08/28/16 14:00 08/30/16 22:21 (Cardizem Cd) 180 mg DAILY PO 08/29/16 09:00 08/30/16 08:34 (Cleocin) 300 mg Q6HR PO 08/30/16 00:00 08/31/16 05:35 (Zithromax) 250 mg DAILY PO 08/30/16 09:00 08/30/16 08:34 (Deltasone) 20 mg BID PO 08/30/16 21:00 08/30/16 22:21 Family History No family history of colon cancer Pancreatic cancer on her dad side Social History No alcohol former smoker Marijuana use Review of Systems Constitutional: COMPLAINS OF: Fatigue, DENIES: Chills Endocrine: DENIES: Polyuria Eyes: DENIES: Double Vision Ears, nose, mouth, throat: DENIES: Hoarseness Respiratory: DENIES: Shortness of breath Cardiovascular: DENIES: Lower Extremity Edema Gastrointestinal: COMPLAINS OF: Abdominal pain, Bloody stools, Diarrhea, Anorexia, Swelling of Abdomen, Heartburn, DENIES: Black stools, Constipation, Nausea, Vomiting, Difficulty Swallowing, Odynophagia, Hematemesis Genitourinary: DENIES: Hematuria Musculoskeletal: DENIES: Neck pain Integumentary: DENIES: Jaundice Hematologic/lymphatic: DENIES: Bruising Immunologic/allergic: DENIES: Eczema Neurologic: DENIES: Abnormal gait Psychiatric: DENIES: Anxiety GI Exam Vitals I&O Vital Signs Date Time Temp Pulse Resp B/P Pulse Ox O2 Delivery O2 Flow Rate FiO2 08/31/16 07:50 98.1 61 20 142/73 96 08/31/16 06:52 18 08/31/16 05:37 97.2 78 16 147/79 93 08/31/16 00:00 97.3 60 16 157/96 94 08/30/16 20:54 97 Nasal Cannula 2.00 08/30/16 20:00 97.2 112 16 149/95 96 08/30/16 17:00 98.2 65 18 162/82 95 08/30/16 13:00 98.7 62 18 139/74 96 I/O 08/30/16 08/30/16 08/30/16 08/31/16 08/31/16 08/31/16 07:00 15:00 23:00 07:00 15:00 23:00 Intake Total 480 ml 720 ml 360 ml 350 ml Balance 480 ml 720 ml 360 ml 350 ml Intake Oral 480 ml 720 ml 360 ml 350 ml # Voids 2 2 2 1 # Bowel Movements 1 0 0 Imaging Last Impressions Chest X-Ray 08/28/16 0600 Signed Impressions: Service Date/Time: Sunday, August 28, 2016 04:28 - CONCLUSION: Slight interval improvement as detailed above. Nabil Mcgrath MD CT Angiography 08/25/16 0000 Signed Impressions: Service Date/Time: Thursday, August 25, 2016 18:01 - CONCLUSION: Dense consolidation in the right upper lobe characteristic of pneumonitis. Rounded pneumonia versus mass in the right lower lobe measuring 18 mm. No evidence of pulmonary embolism. Hu Seaman MD Laboratory Test 08/31/16 07:07 White Blood Count 6.5 TH/MM3 Red Blood Count 3.07 MIL/MM3 Hemoglobin 10.7 GM/DL Hematocrit 31.3 % Mean Corpuscular Volume 102.1 FL Mean Corpuscular Hemoglobin 35.0 PG Mean Corpuscular Hemoglobin 34.3 % Concent Red Cell Distribution Width 16.5 % Platelet Count 133 TH/MM3 Mean Platelet Volume 9.3 FL Sodium Level 141 MEQ/L Potassium Level 3.6 MEQ/L Chloride Level 106 MEQ/L Carbon Dioxide Level 26.2 MEQ/L Anion Gap 9 MEQ/L Blood Urea Nitrogen 17 MG/DL Creatinine 0.56 MG/DL Estimat Glomerular Filtration 144 ML/MIN Rate Random Glucose 94 MG/DL Calcium Level 8.2 MG/DL Date/Time Procedure Status Source Growth 08/30/16 06:00 Stool Occult Blood (MITRA) - Final Complete Stool Stool HEMOCCULT POSITIVE 08/30/16 06:00 Cryptosporidium Exam Received Stool Stool Pending 08/30/16 06:00 Stool Pus (MITRA) Received Stool Stool Pending 08/30/16 06:00 Giardia Antigen (MITRA) Received Stool Stool Pending 08/30/16 06:00 Received Stool Stool Pending 08/26/16 16:00 Acid Fast Stain - Final Resulted Sputum Expectorated Sputum NO ACID FAST BACILLI SEEN 08/26/16 16:00 Mycobacterial Culture Resulted Sputum Expectorated Sputum Pending Physical Examination HEENT: normocephalic; atraumatic; no jaundice. Throat is clear. NECK: Neck is supple, no JVD, no lymphadenopathy. CHEST: Chest is clear to auscultation and percussion. CARDIAC: Regular rate and rhythm with no murmur gallop or rubs. ABDOMEN: Soft, slightly distended, tenderness to palpation ; no hepatosplenomegaly; bowel sounds are present in all four quadrants. EXTREMITIES: No clubbing, cyanosis, or edema. SKIN: Normal; no rash; no jaundice. DIAMOND BROKER: No focal deficits; alert and oriented times three. Assessment and Plan Plan - Lower GI bleed/heme (+) stools, anemia- Patient reports a total of 3 loose BMs with a string of bright red blood. She has a significant drop in hgb, this was 14.3 (08/25/16) ----> 10.7 today. She denies history of GI bleed, never had EGD/colonoscopy before. Denies nausea, vomiting, hematemesis, or melena. .stools are negative for C-dif , stool cx pending. - Severe lower abdomen pain- She endorses severe lower abdomen pain that started last night and work her up from sleep. will order CT of abdomen/pelvis - Chronic GERD- She reports chronic severe GERD and indigestion. Reports bloating. - Pneumonia- Improving Azithromycin and clindamycin - Nutrition, metabolism, and development symptoms- Weight is an issue for her due to HIV and she is on Megace at home - Lung mass- she is following with Dr. Colmenares as an OP and suppose to start chemo and radiatio - HIV- diagnosed in 1996 per attending Plan: - Clear liquids - CT of abd/pelvis - EGD/colonoscopy in am - Obtain consents - Iveth today - NPO mn - Hold Lovenox after mn - Cont. PPI - Monitor hh - Transfuse as needed - Notify GI for active bleed - Patient seen and examined by Dr. Pollard and myself and this note is written on his behalf. Kelly Coyne Aug 31, 2016 10:23
[2016-08-31] MEDS ORDERED: DIATRIZOATE MEGLUM/DIATRIZOATE SOD 9 ML CUP PO ONE (11:15)
[2016-08-31] MEDS: PANTOPRAZOLE SOD 40 MG DELAYED RELEASE TAB PO SCH (11:38)
[2016-08-31] MEDS: guaiFENesin E.R. 600 MG TAB PO SCH ×2 (11:38→21:58)
[2016-08-31] MEDS: AZITHROMYCIN 250 MG TAB PO SCH (11:39)
[2016-08-31] MEDS: FLUoxetine HCL 20 MG CAP PO SCH (11:39)
[2016-08-31] MEDS: predniSONE 20 MG TAB PO SCH ×2 (11:39→21:59)
[2016-08-31] MEDS: DILTIAZEM-CD 180 MG CAP ER PO SCH (11:41)
[2016-08-31] MEDS: SODIUM CHLORIDE 0.9% FLUSH 5 ML FLUSH IV FLUSH SCH ×2 (11:45→22:02)
[2016-08-31] MEDS ORDERED: PEG (High)/E-LYTE SOLN 4000 ML BTL PO ONE (16:00)
[2016-08-31] MEDS ORDERED: IOHEXOL 350 MG/ML 10 ML VIAL (for RAD DIAG) IV ONE (17:26)
--- NOTE | 2016-08-31 18:09 | RADRPT ---
EXAM DATE/TIME: 08/31/2016 17:09 [facility] COMPARISON: CT PULMONARY ANGIOGRAM, August 25, 2016, 18:01. INDICATIONS : Abdominal pain and cramping. IV CONTRAST: 99 cc Omnipaque 350 (iohexol) IV ORAL CONTRAST: Prescribed oral contrast ingested. RADIATION DOSE: 8.78 CTDIvol (mGy) MEDICAL HISTORY : HIV. Carcinoma, lung. SURGICAL HISTORY : section. ENCOUNTER: Initial ACUITY: 1 day PAIN SCALE: 5/10 LOCATION: Bilateral lower quadrant TECHNIQUE: Volumetric scanning of the abdomen and pelvis was performed. Using automated exposure control and ad justment of the mA and/or kV according to patient size, radiation dose was kept as low as reasonably achievable to obtain optimal diagnostic quality images. FINDINGS: Compared with chest CT from August 25 the patient has developed small bilateral pleural effusions with compressive atelectasis in both lower lobes and some groundglass opacity at the lung bases. There is a mild fatty liver. Probable hemangioma anterior left liver measuring about 1.5 cm and 1 cm in diameter. Spleen, adrenals, kidneys and pancreas demonstrate no acute findings. Gallbladder wall i s thickened. No biliary ductal dilatation. There is a small amount of free fluid around the liver and in the pelvis. There is mild anasarca. Mul tiple small fibroids in uterus. There is no free air. No bowel obstruction. No adenopathy in the abdomen. No acute bony abnormalities . CONCLUSION: 1. Mild ascites, especially in the pelvis. Mild anasarca. 2. Mild fatty liver with probable small hemangiomata anteriorly. 3. Development of small bilateral pleural effusions compared with the chest CT from August 25, 2016. 4. Small uterine fibroids. No bowel obstruction. Christopher Pollard MD on August 31, 2016 at 18:02 Board Certified Radiologist. This report was verified electronically.
[2016-08-31] MEDS: DARUNAVIR 800 MG TAB PO SCH (21:59)
[2016-08-31] MEDS: TENOFOVIR DISOPROXIL FUMARATE 300 MG TAB PO SCH (22:00)
[2016-08-31] MEDS: ENOXAPARIN SODIUM 40 MG/0.4 ML SYRINGE SQ SCH (22:01)
[2016-08-31] MEDS: [UNRECOGNIZED DRUG - OTHER] PO SCH (22:02)
[2016-09-01 00:25] VITALS: BP 165/96; PULSE 56; RESP 16; TEMP 97; O2SAT 98
[2016-09-01] MEDS: CHLORHEXIDINE GLUCONATE 2 % 1 PACK (2 CLOTHS) TOP SCH (04:00)
[2016-09-01] MEDS: INSULIN NovoLIN REGULAR SUPPLEMENTAL SCALE SQ SCH ×2 (05:55→11:00)
[2016-09-01] MEDS: ALPRAZolam 0.5 MG TAB PO SCH ×2 (05:55→13:40)
[2016-09-01] MEDS: CLINDAMYCIN 150 MG CAP PO SCH ×2 (05:55→13:40)
[2016-09-01 08:00] VITALS: BP 135/76; PULSE 61; RESP 20; TEMP 98.9; O2SAT 96
[2016-09-01] MEDS: guaiFENesin E.R. 600 MG TAB PO SCH (09:00)
[2016-09-01] MEDS: AZITHROMYCIN 250 MG TAB PO SCH (09:00)
[2016-09-01] MEDS: PANTOPRAZOLE SOD 40 MG DELAYED RELEASE TAB PO SCH (09:00)
[2016-09-01] MEDS: FLUoxetine HCL 20 MG CAP PO SCH (09:00)
[2016-09-01] MEDS: predniSONE 20 MG TAB PO SCH (09:01)
[2016-09-01] MEDS: DILTIAZEM-CD 180 MG CAP ER PO SCH (09:02)
[2016-09-01] MEDS: SODIUM CHLORIDE 0.9% FLUSH 5 ML FLUSH IV FLUSH SCH (09:02)
[2016-09-01 09:21] LABS: HEMATOCRIT 34.3 % (35.0-46.0); MEAN CELL VOLUME 101.5 FL (80.0-100.0); MEAN CORPUSCULAR HEMOGLOBIN 35.1 PG (27.0-34.0); MEAN CORPUSCULAR HGB CONC 34.6 % (32.0-36.0); PLATELET COUNT 162 TH/MM3 (150-450); RED BLOOD COUNT 3.38 MIL/MM3 (4.00-5.30); RED CELL DISTRIBUTION WIDTH 16.2 % (11.6-17.2); REVIEW FLAG FINAL; WHITE BLOOD COUNT 5.2 TH/MM3 (4.0-11.0)
[2016-09-01] MEDS ORDERED: CLIN150 PO (09:41)
[2016-09-01] MEDS ORDERED: PANT40TA3 PO (09:41)
[2016-09-01] MEDS ORDERED: PRED20 PO (09:41)
[2016-09-01] MEDS ORDERED: ALPR.5 PO (09:41)
[2016-09-01] MEDS ORDERED: FLUO40CA PO (09:41)
[2016-09-01] MEDS ORDERED: CARD180C5 PO (09:41)
[2016-09-01] MEDS ORDERED: ZITH250T PO (09:41)
--- NOTE | 2016-09-01 09:42 | PQ ---
Physician Query Response Document PATIENT: ALCIDES SANABRIA : 1975 ADMIT DATE: 08/25/2016 6:47 PM DISCH DATE: RESPONDING PROVIDER #: Sharda QUERY TEXT: HIV Clarification and Associated Conditions HIV (Human immunodeficiency virus) is documented in the medical record. Please specify the type Such as: -- Acquired immune deficiency syndrome [AIDS] -- LZBV-pxcohsm-jstmpuw complex [ARC] -- Symptomatic -- Asymptomatic -- Other, please specify The patient's Clinical Indicators include: PER PROGRESS NOTE 08/31/16: (8) HIV (human immunodeficiency virus infection) Status: Chronic Plan: Last CD4 count per patient was 383 taken one month ago ?Continue home antiretroviral medications Genvoya and Prezista, Started 08/27 ?Absolute lymphocytes: 554 ?CD4 % cells: 18 ?Absolute CD4: 103 ?T-helper/suppressor ratio: 0.5 ?Absolute CD8 count: 202 ?Likely decrease in overall counts and CD4 counts due to acute PNA infection. Patient to follow up as an outpatient to continue monitoring CD4 count and start prophylactic ABX at that time. Query created by: Alissa Lee on 08/31/2016 2:53 PM RESPONSE TEXT: Ms Sanabria has been HIV positive for many years. She does not have a specific HIV related diagno sis at this time. She would be considered asymptomatic fornow. Electronically signed by: Mary Diaz MD 09/01/2016 9:39 AM
--- NOTE | 2016-09-01 09:42 | HHI.FPPN ---
Subjective Remarks No acute events overnight. Vital signs unremarkable. This morning patient states that she feels very good and is ready to go. Denies any chest pain or shortness of breath. She did report passage of very small vaginal blood clots. She reports that this has been ongoing for the last 2 years and has previously been worked up by a physician. She is agreeable to follow-up with her physician for continued monitoring of the symptoms as they are not acute and will require prolonged monitoring. (Sita Mejia MD R2) Objective Vitals Vital Signs Date Time Temp Pulse Resp B/P Pulse Ox O2 Delivery O2 Flow Rate FiO2 09/01/16 08:00 98.9 61 20 135/76 96 09/01/16 00:25 97.0 56 16 165/96 98 08/31/16 20:00 98.8 65 18 129/88 97 08/31/16 17:42 96 21 08/31/16 15:30 96.4 58 20 134/83 96 08/31/16 11:56 97.6 68 20 143/95 99 08/31/16 11:00 59 08/31/16 10:17 98 21 I/O 08/31/16 08/31/16 08/31/16 09/01/16 09/01/16 09/01/16 07:00 15:00 23:00 07:00 15:00 23:00 Intake Total 350 ml 473 ml 500 ml 0 ml Output Total 400 ml Balance 350 ml 73 ml 500 ml 0 ml Intake Oral 350 ml 473 ml 500 ml 0 ml Output Urine Total 400 ml # Voids 1 3 3 # Bowel Movements 0 0 3 3 (Sita Mejia MD R2) Result Diagram: 09/01/16 0829 08/31/16 0707 Objective Remarks GEN: Well-developed, well-nourished patient AAF lying in bed in NAD able to speak in full sentences. CV: Regular rhythm and rate without obvious murmurs, gallops, rubs. LUNGS: Clear to auscultation bilaterally. Normal respiratory effort. No wheezes , rales, rhonchi. EXT: No edema. No calf tenderness. NEURO/PSYCH: Awake and alert. Appropriate affect. Normal speech. (Sita Villarreal MD R2) A/P Assessment and Plan Ms. Gonzalez is a 41 year old female with PMH significant for HIV, admitted for PNA. Discharge Planning Today or tomorrow pending clearance from GI. Hopefully today if EGD and colonoscopy are negative. DW[facility] Attending Attestation Patient seen and examined. Case reviewed and discussed with the resident team. Agree with plan of care as discussed with me and documented in the resident note. (Mary Diaz MD) Problem List: (1) Pneumonia Status: Acute Plan: Met sepsis criteria on admission with tachycardia, tachypnea, leukocytosis. Found to have right upper lobe pneumonitis. Associated with right-sided chest pain that was pleuritic in nature that has now resolved. On the night of admission, patient continued to have tachypnea with an increase oxygen supplementation requirement involving both nonrebreather and Ventimask. She also became hypotensive and required 4 L boluses. Critical care consulted on 08/26 but has signed off as of 08/28. -Leukocytosis has now resolved -Blood, sputum, urine Legionella/Streptococcus culture: Unremarkable -Sputum culture for acid-fast: Negative -Mycobacterial culture: Pending -TB PCR: Not detected -Walk Test: Pass-Recommend no outpatient oxygen therapy ID consulted: Appreciate recommendations * Discontinue vancomycin and Zosyn * Continue azithromycin * Start Clindamycin Imaging: * CXR 08/28: Slight interval clearance of infiltrates * CXR 08/26: Worsening airspace disease * CTA: Dense consolidation in the right upper lobe care to risk it of pneumonitis. Rounded pneumonia versus mass in the right lower lobe measuring 18 mm. No evidence of PE Medications: * Azithromycin 500 mg (08/25 * Clindamycin (08/29- * Transition steroids to Prednisone 20mg BID, discharged on 20 mg daily 3 days * Mucinex * Albuterol + Duonebs * Discontinued ABX: Vancomycin (08/26), Cefepime (08/26), Rocephin (08/25) Zosyn (08/29) (2) Occult blood positive stool Status: Acute Plan: Patient with 2 day history of loose stools and one episode of bloody stool. History of multiple ABX use. H&H stable -Hemoccult: Positive x2 -C. Diff: Negative -Enteric pathogens: Negative -Giardia: Negative -GI consulted, appreciate recommendations * EGD/colonoscopy * CT abdomen: Mild ascites, especially in the pelvis. Mild anasarca. Mild fatty liver with probable small hemangiomata anteriorly. Developed a small bilateral pleural effusions. Small uterine fibroids. No bowel obstruction. (3) Irregular menstrual bleeding Status: Chronic Plan: Patient reports passing multiple small blood clots. She denies having a menstrual cycle for >1 year but does report a history of periodically having passage of small blood clots. This has previously been worked up by her outpatient physician. -Since this is a nonacute issue, patient agreeable to returning to her previous physician for further management as this is a chronic issue (4) A-fib Status: Resolved Plan: Initially presented with sinus tachycardia on EKG with negative troponin 2. Converted to A. fib with RVR on 08/27 which has now resolved with Cardizem. -Does not need anticoagulation as CHADS2 score is 0 -Troponin: 0.19, 0.12 (Likely due to demand ischemia) -Echo: EF of 55-60%. Mild tricuspid regurgitation. -Cardiology consulted, appreciate recommendations * Cardizem CD 180mg (5) Sepsis Status: Resolved Plan: -See more detail plan above (6) Anxiety with depression Status: Acute Plan: Symptoms of anxiety and depression likely exacerbated by new diagnosis of cancer. Denies suicidal ideation -Ativan PRN, monitor respiratory status -Consulted neuropsychology: Appreciate recommendations * Alprazolam 0.5 mg q8 * Prozac 40 mg daily (7) Lung mass Status: Chronic Plan: - Patient states she will follow with Dr. Colmenares, oncology, for further evaluation and treatment regarding recent diagnosis of lung cancer (8) HIV (human immunodeficiency virus infection) Status: Chronic Plan: Last CD4 count per patient was 383 taken one month ago Continue home antiretroviral medications Genvoya and Prezista, Started 08/27 Absolute lymphocytes: 554 CD4 % cells: 18 Absolute CD4: 103 T-helper/suppressor ratio: 0.5 Absolute CD8 count: 202 Per discussion with ID: Likely decrease in overall counts and CD4 counts due to acute PNA infection. Patient to follow up as an outpatient to continue monitoring CD4 count and start prophylactic ABX at that time. (9) Nutrition, metabolism, and development symptoms Status: Acute Plan: Fluids: None Electrolytes: Grossly unremarkable, continue to monitor with electrolytes protocol Nutrition: Regular diet as tolerated DVT PPX: Held for possible GI bleed, SCD/TEDs (Sita Mejia MD R2) Problem Qualifiers (1) Pneumonia: Qualified Code: J18.1 - Pneumonia of right middle lobe due to infectious organism (2) Sepsis: Qualified Code: A41.9 - Sepsis, due to unspecified organism Sita Mejia MD R2 Sep 01, 2016 09:42 Mary Diaz MD Sep 06, 2016 14:17
[2016-09-01 09:51] LABS: BICARBONATE 26.7 MEQ/L (21.0-32.0); POTASSIUM 3.6 MEQ/L (3.5-5.1)
[2016-09-01 10:39] VITALS: O2SAT 97
[2016-09-01 11:01] VITALS: BP 135/76; PULSE 61; RESP 20; TEMP 98.9; O2SAT 96
--- NOTE | 2016-09-01 12:06 | HHI.DCPOC ---
Discharge Care Plan Diagnosis: (1) Pneumonia (2) A-fib (3) Occult blood positive stool (4) Irregular menstrual bleeding (5) Major depressive disorder (6) Lung mass (7) HIV (human immunodeficiency virus infection) Goals to Promote Your Health * To prevent worsening of your condition and complications * To maintain your health at the optimal level Directions to Meet Your Goals Take your medications as prescribed Follow your dietary instruction Follow activity as directed Keep your appointments as scheduled Take your immunizations and boosters as scheduled If your symptoms worsen call your PCP, if no PCP go to Urgent Care Center or Emergency Room Smoking is Dangerous to Your Health. Avoid second hand smoke Call the 24-hour hour crisis hotline for domestic abuse at Sita Mejia MD R2 Sep 01, 2016 12:06
--- NOTE | 2016-09-01 12:08 | GIPROC ---
[facility] [address] [facility]. [facility] [place], [address] EGD PROCEDURE REPORT EXAM DATE: 09/01/2016 PATIENT NAME: Ayana Sanabria MR #: [id number] BIRTHDATE: 1975 ATTENDING: Bennie Boyce MD ORDER #: [id number] SMOG TECHNICIAN: Yanique Celestin and Landon Arthur STATUS: bedside INDICATIONS: The patient is a 41 yr old female here for an EGD due to iron deficiency anemia PROCEDURE PERFORMED: EGD w/ biopsy MEDICATIONS: Per Anesthesia and None. TOPICAL ANESTHETIC: CONSENT: The patient understands the risks and benefits of the procedure and understands that these risks include, but are not limited to: sedation, allergic reaction, infection, perforation and/or bleeding. Alternative means of evaluation and treatment include, among others: physical exam, x-rays, and/or surgical intervention. The patient elects to proceed with this endoscopic procedure. medical equipment was checked for proper function. Hand hygiene and appropriate measures for infection prevention was taken. After the risks, benefits and alternatives of the procedure were thoroughly explained, Informed consent was verified, confirmed and timeout was successfully executed by the treatment team. The patient was anesthetized with topical anesthesia and the EC-3490Li (Pedi C) endoscope was introduced through the mouth and advanced to the second portion of the duodenum. Retroflexed views revealed no abnormalities and Retroflexed views revealed The gastroscope was then slowly withdrawn and removed. ESOPHAGUS: There was LA Class A esophagitis noted. A biopsy was performed using cold forceps. Sample sent for histology. STOMACH: There was erythematous moderate gastritis in the gastric antrum. A biopsy was performed using cold forceps. Sample sent for histology. ADVERSE EVENTS: There were no complications. IMPRESSIONS: 1. There was LA Class A esophagitis noted 2. There was erythematous gastritis in the gastric antrum; biopsy was performed 3. Retroflexed views revealed no abnormalities 4. Retroflexed views revealed RECOMMENDATIONS: 1. Await biopsy results. Biopsy results will not be ready for 7-10 days. If you don't hear from us in two weeks, call our office for biopsy results. 2. Anti-reflux regimen 3. Continue PPI PATIENT CONDITION: stable DISPOSITION: Inpatient REPEAT EXAM: Return 1 year EGD Bennie Boyce MD eSigned: Bennie Boyce MD 09/01/2016 12:08 PM cc: CPT CODES: 05439 Upper gastrointestinal endoscopy including esophagus, stomach, and either the duodenum and/or jejunum as appropriate; with biopsy, single or multiple ICD CODES: K20.9 Esophagitis,unspecified D50.9 Iron deficiency anemia,unspecified The ICD and CPT codes recommended by this software are interpretations from the data that the clinical staff has captured with the software. The verification of the translation of this report to the ICD and CPT codes and modifiers is the sole responsibility of the health care institution and practicing physician where this report was generated. [employer] will not be held responsible for the validity of the ICD and CPT codes included on this report. AMA assumes no liability for data contained or not contained herein. CPT is a registered trademark of the [employer]. PATIENT NAME: Ayana Sanabria MR#: [id number]
--- NOTE | 2016-09-01 12:13 | GIPROC ---
[facility] [address] [facility]. [facility], [address] COLONOSCOPY PROCEDURE REPORT EXAM DATE: 09/01/2016 PATIENT NAME: Ayana Sanabria MR #: [id number] BIRTHDATE: 1975 ENDOSCOPIST: Bennie Boyce MD ORDER #: [id number] MANAGER CUSTOMS: Yanique Celestin and Landon Arthur STATUS: bedside INDICATIONS: The patient is a 41 yr old female here for a colonoscopy due to hematochezia PROCEDURE PERFORMED: Colonoscopy with biopsy MEDICATIONS: Per Anesthesia and None. PREP QUALITY: The [facility] Bowel Prep Score was Right colon 2, Mid colon 3, and Left colon 3. Total = 8. PREP TYPE:GoLytely ESTIMATED BLOOD LOSS: None CONSENT: The patient understands the risks and benefits of the procedure and understands that these risks include, but are not limited to: sedation, allergic reaction, infection, perforation and/or bleeding. Alternative means of evaluation and treatment include, among others: physical exam, x-rays, and/or surgical intervention. The patient elects to proceed with this endoscopic procedure. medical equipment was checked for proper function. Hand hygiene and appropriate measures for infection prevention was taken. After the risks, benefits and alternatives of the procedure were thoroughly explained, Informed consent was verified, confirmed and timeout was successfully executed by the treatment team. A digital exam revealed external hemorrhoids The Pentax EC-3490Li endoscope was introduced through the anus and advanced to the cecum, which was identified by both the appendix and ileocecal valve. The instrument was then slowly withdrawn as the colon was fully examined. COLON FINDINGS: Three polypoid shaped sessile polyps ranging between 3-7mm in size were found in the sigmoid colon. Multiple biopsies were performed using cold forceps. A polypoid shaped sessile polyp ranging between 3-5mm in size was found in the transverse colon. A biopsy was performed using cold forceps. A polypoid shaped sessile polyp ranging between 3-5mm in size was found in the rectum. A biopsy was performed using cold forceps. Retroflexed views revealed internal hemorrhoids and Retroflexed views revealed medium internal hemorrhoids The scope was then completely withdrawn from the patient and the procedure terminated. PROCEDURE WITHDRAWAL TIME:7minutes ADVERSE EVENTS: There were no complications. IMPRESSIONS: 1. Three sessile polyps ranging between 3-7mm in size were found in the sigmoid colon; multiple biopsies were performed using cold forceps 2. A sessile polyp ranging between 3-5mm in size was found in the transverse colon; biopsy was performed using cold forceps 3. A sessile polyp ranging between 3-5mm in size was found in the rectum; biopsy was performed using cold forceps 4. Retroflexed views revealed internal hemorrhoids 5. Retroflexed views revealed medium internal hemorrhoids 6. Revealed external hemorrhoids RECOMMENDATIONS: 1. Await biopsy results. Biopsy results will not be ready for 7-10 days. If you don't hear from us in two weeks, call our office for results. 2. Yearly hemoccult 3. Follow-up: GI Clinic 2 week(s) RECALL: Return 1 year Colonoscopy, pending biopsy results Bennie Boyce MD eSigned: Bennie Boyce MD 09/01/2016 12:13 PM cc: CPT CODES: 70237 Colonoscopy, flexible, proximal to splenic flexure; with biopsy, single or multiple ICD CODES: D12.5 Benign neoplasm of sigmoid colon D12.3 Benign neoplasm of transverse colon K64.8 Other hemorrhoids K92.1 Melena K64.4 Residual hemorrhoidal skin tags The ICD and CPT codes recommended by this software are interpretations from the data that the clinical staff has captured with the software. The verification of the translation of this report to the ICD and CPT codes and modifiers is the sole responsibility of the health care institution and practicing physician where this report was generated. [email or web address] will not be held responsible for the validity of the ICD and CPT codes included on this report. A assumes no liability for data contained or not contained herein. CPT is a registered trademark of the [employer]. PATIENT NAME: Ayana Sanabria MR#: [id number]
[2016-09-01 13:43] VITALS: BP 155/95; PULSE 63; RESP 20; TEMP 99; O2SAT 96
[2016-09-01 16:02] VITALS: BP 119/59; PULSE 86; RESP 20; TEMP 98.2; O2SAT 98
--- NOTE | 2016-09-01 16:19 | HHI.DS ---
Discharge Summary Admission Date Aug 25, 2016 at 18:47 Discharge Date: Sep 01, 2016 Admitting Diagnosis sepsis, pneumonia (1) Pneumonia Plan: Met sepsis criteria on admission with tachycardia, tachypnea, leukocytosis. Found to have right upper lobe pneumonitis. Associated with right-sided chest pain that was pleuritic in nature that has now resolved. On the night of admission, patient continued to have tachypnea with an increase oxygen supplementation requirement involving both nonrebreather and Ventimask. She also became hypotensive and required 4 L boluses. Critical care consulted on 08/26 but has signed off as of 08/28. -Leukocytosis has now resolved -Blood, sputum, urine Legionella/Streptococcus culture: Unremarkable -Sputum culture for acid-fast: Negative -Mycobacterial culture: Pending -TB PCR: Not detected -Walk Test: Pass-Recommend no outpatient oxygen therapy ID consulted: Appreciate recommendations * Discontinue vancomycin and Zosyn * Continue azithromycin * Start Clindamycin Imaging: * CXR 08/28: Slight interval clearance of infiltrates * CXR 08/26: Worsening airspace disease * CTA: Dense consolidation in the right upper lobe care to risk it of pneumonitis. Rounded pneumonia versus mass in the right lower lobe measuring 18 mm. No evidence of PE Medications: * Azithromycin 500 mg (08/25 * Clindamycin (08/29- * Transition steroids to Prednisone 20mg BID, discharged on 20 mg daily 3 days * Mucinex * Albuterol + Duonebs * Discontinued ABX: Vancomycin (08/26), Cefepime (08/26), Rocephin (08/25) Zosyn (08/29) (2) Occult blood positive stool Plan: Patient with 2 day history of loose stools and one episode of bloody stool. History of multiple ABX use. H&H stable -Hemoccult: Positive x2 -C. Diff: Negative -Enteric pathogens: Negative -Giardia: Negative -GI consulted, appreciate recommendations * EGD/colonoscopy * CT abdomen: Mild ascites, especially in the pelvis. Mild anasarca. Mild fatty liver with probable small hemangiomata anteriorly. Developed a small bilateral pleural effusions. Small uterine fibroids. No bowel obstruction. (3) Irregular menstrual bleeding Plan: Patient reports passing multiple small blood clots. She denies having a menstrual cycle for >1 year but does report a history of periodically having passage of small blood clots. This has previously been worked up by her outpatient physician. -Since this is a nonacute issue, patient agreeable to returning to her previous physician for further management as this is a chronic issue (4) A-fib Plan: Initially presented with sinus tachycardia on EKG with negative troponin 2. Converted to A. fib with RVR on 08/27 which has now resolved with Cardizem. -Does not need anticoagulation as CHADS2 score is 0 -Troponin: 0.19, 0.12 (Likely due to demand ischemia) -Echo: EF of 55-60%. Mild tricuspid regurgitation. -Cardiology consulted, appreciate recommendations * Cardizem CD 180mg (5) Sepsis Plan: -See more detail plan above (6) Anxiety with depression Plan: Symptoms of anxiety and depression likely exacerbated by new diagnosis of cancer. Denies suicidal ideation -Ativan PRN, monitor respiratory status -Consulted neuropsychology: Appreciate recommendations * Alprazolam 0.5 mg q8 * Prozac 40 mg daily (7) Lung mass Plan: - Patient states she will follow with Dr. Colmenares, oncology, for further evaluation and treatment regarding recent diagnosis of lung cancer (8) HIV (human immunodeficiency virus infection) Plan: Last CD4 count per patient was 383 taken one month ago Continue home antiretroviral medications Genvoya and Prezista, Started 08/27 Absolute lymphocytes: 554 CD4 % cells: 18 Absolute CD4: 103 T-helper/suppressor ratio: 0.5 Absolute CD8 count: 202 Per discussion with ID: Likely decrease in overall counts and CD4 counts due to acute PNA infection. Patient to follow up as an outpatient to continue monitoring CD4 count and start prophylactic ABX at that time. (9) Nutrition, metabolism, and development symptoms Plan: Fluids: None Electrolytes: Grossly unremarkable, continue to monitor with electrolytes protocol Nutrition: Regular diet as tolerated DVT PPX: Held for possible GI bleed, SCD/TEDs Consultants Critical care Infectious disease GI Cardiology Procedures EGD and colonoscopy Brief History Ms Sanabria is a 41 year old female with PMH significant for HIV diagnosed in 1996 with most recent CD4 count per patient 383 drawn about one month ago, patient presented to the ED due to severe right-sided chest pain and shortness of breath. She states about four days prior to admission her symptoms started with head and nasal congestion as well as a cough productive of yellow sputum. She states her symptoms have progressively worsened since then with her chest pain being significant enough prompting her to call an ambulance. She does report a small amount of hemoptysis while here in the ED, denies any hemoptysis prior to this. Reports a subjective low-grade fever also here in ED, however denies any fevers earlier in the week. Her chest pain she stated in the ED is both right lower and right upper chest, about a 7/10, also reports right upper back pain, chest pain was pleuritic but improving now. Denies left-sided chest pain. Denies palpitations or diaphoresis or pain radiating elsewhere. Denies abdominal pain, no N/V or diarrhea. Denies hematuria or visible blood in stool. Dr. Muñoz is her infectious disease physician. She states she takes Genvoya and Prezista each night. She also follows with Dr. Florez, pulmonology. She was treated by Dr. Floerz for pneumonia about one month ago however she states she never fully recovered from this. She states she was found to have stage I lung cancer while being worked up for the pneumonia last month. She is now following with Dr. Colmenares her oncologist after her lung mass was found. She has not yet started chemotherapy or radiation therapy. Overnight her BPs dropped from 120s systolic in the ED ti as low as 80s/40s. She received 4 liters total of fluids and is more stable this am. She had also worsened overnight and at one time was on a nonrebreather but now is on 6 liter nasal canula. She is more comfortable with her pain and was evaluated for a PE and is clear. She is very SOB even with just standing up in her room. She was transferred to [facility] overnight and appreciate help of Dr Orozco her System Designer as she could get worse with her immunocompromised state and pneumonia/sepsis. CBC/BMP: 09/01/16 0829 09/01/16 0829 Significant Findings Laboratory Tests Test 08/30/16 08/30/16 08/31/16 09/01/16 06:42 06:47 07:07 08:29 Chloride Level 109 MEQ/L (98-107) Random Glucose 117 MG/DL 68 MG/DL (74-106) (74-106) Calcium Level 8.4 MG/DL 8.2 MG/DL 8.4 MG/DL (8.5-10.1) (8.5-10.1) (8.5-10.1) Red Blood Count 3.08 MIL/MM3 3.07 MIL/MM3 3.38 MIL/MM3 (4.00-5.30) (4.00-5.30) (4.00-5.30) Hemoglobin 10.8 GM/DL 10.7 GM/DL (11.6-15.3) (11.6-15.3) Hematocrit 31.4 % 31.3 % 34.3 % (35.0-46.0) (35.0-46.0) (35.0-46.0) Mean Corpuscular Volume 101.7 FL 102.1 FL 101.5 FL (80.0-100.0) (80.0-100.0) (80.0-100.0) Mean Corpuscular Hemoglobin 35.1 PG 35.0 PG 35.1 PG (27.0-34.0) (27.0-34.0) (27.0-34.0) Platelet Count 120 TH/MM3 133 TH/MM3 (150-450) (150-450) Neutrophils % (Manual) 83 % (16-70) Myelocytes 2 % (0-0) Nucleated Red Blood Cells 3 /100 WBC (0-0) Platelet Estimate LOW (NORMAL) Target Cells 1+ (NORMAL) Imaging Last Impressions Abdomen/Pelvis CT 08/31/16 0000 Signed Impressions: Service Date/Time: August 17:09 - CONCLUSION: 1. Mild ascites, especially in the pelvis. Mild anasarca. 2. Mild fatty liver with probable small hemangiomata anteriorly. 3. Development of small bilateral pleural effusions compared with the chest CT from August 25, 2016. 4. Small uterine fibroids. No bowel obstruction. Christopher Pollard MD Chest X-Ray 08/28/16 0600 Signed Impressions: Service Date/Time: Sunday, August 28, 2016 04:28 - CONCLUSION: Slight interval improvement as detailed above. Nabil Mcgrath MD CT Angiography 08/25/16 0000 Signed Impressions: Service Date/Time: Thursday, August 25, 2016 18:01 - CONCLUSION: Dense consolidation in the right upper lobe characteristic of pneumonitis. Rounded pneumonia versus mass in the right lower lobe measuring 18 mm. No evidence of pulmonary embolism. Hu Seaman MD PE at Discharge GEN: Well-developed, well-nourished patient AAF lying in bed in NAD able to speak in full sentences. CV: Regular rhythm and rate without obvious murmurs, gallops, rubs. LUNGS: Clear to auscultation bilaterally. Normal respiratory effort. No wheezes , rales, rhonchi. EXT: No edema. No calf tenderness. NEURO/PSYCH: Awake and alert. Appropriate affect. Normal speech. Hospital Course Patient is a 41-year-old female with a history significant for HIV. Admitted for pneumonia. On admission, patient became tachycardic, tachypneic, hypotensive, and required increasing oxygen supplementation demand. Patient was initially treated with Rocephin and azithromycin but broader antibiotic coverage was started due to worsening clinical status. Treatment included vancomycin and cefepime. Multiple fluid boluses were given in addition to IV steroids. Sputum, blood, urine cultures were negative. Critical care was consulted due to the persistent hypotension despite fluid resuscitation. Patient did not require any pressors. Patient also developed A. fib with RVR that required Cardizem drip but with smooth transition to PO Cardizem. Echo showed an EF of 55-60%. Was found to have elevated troponins but was suspected to be due to demand ischemia as patient also had developed KVNG with good recovery. Clinical status improved with antibiotics and was eventually switched to clindamycin and azithromycin. Steroids were tapered. Once respiratory status improved, patient noticed melena. H&H had a significant drop on admission but was stable thereafter. Stool studies were negative. EGD and colonoscopy were ordered which showed gastritis and polyps. CT abdomen showed mild ascites but no significant findings. Patient also complained of irregular menstrual cycles but upon further evaluation this has already been worked up as an outpatient and we recommended continued outpatient follow-up with her physician which she agreed with. Of note, her history significant for recent diagnosis of lung mass that is being followed up as an outpatient. Psychiatry was consulted to assist with anxiety and depression related to new diagnosis. Her symptoms improved with Prozac and alprazolam. Patient was discharged in stable condition to complete 7 days of azithromycin (completed in the hospital) and 10 days of clindamycin. Pt Condition on Discharge: Stable Discharge Disposition: Discharge Home Discharge Instructions DIET: Follow Instructions for: As Tolerated, No Restrictions Activities you can perform: Regular-No Restrictions Follow up Referrals: Appointment for Follow Up - 1 Week with Jaime Perales MD Cardiology - 1 Week with Thierno Hummel MD GI/CRS Colonoscopy - 1 Week with Kelly Coyne SUPERVISING APPRAISER - 2 Weeks New Medications: Fluoxetine (Fluoxetine) 40 Mg Cap 40 CAP PO DAILY #30 Ref 0 CAP Prednisone (Prednisone) 20 Mg Tab 20 MG PO DAILY #3 Ref 0 TAB Alprazolam (Xanax) 0.5 Mg Tab 0.5 MG PO Q8HR #90 TAB Clindamycin (Cleocin) 150 Mg Cap 300 MG PO Q6HR #20 CAP Diltiazem CD 24 HR (Cardizem CD 24 HR) 180 Mg Caper 180 MG PO DAILY #30 CAP Pantoprazole (Pantoprazole) 40 Mg Tab 40 MG PO DAILY #30 TAB Continued Medications: Darunavir (Prezista) 800 Mg Tab 800 MG PO DAILY Mgmt Viral Infection #30 Ref 0 TAB Wjnaisjmsiyr-Eipgvkuwuh-Uzvxxbgrntge-Tenofvir (Genvoya) [phone] Mg Tab 1 TAB PO DAILY Mgmt Viral Infection #30 Ref 0 TAB Sita Mejia MD R2 Sep 01, 2016 16:19
[2016-09-01] MEDS ORDERED: PROPOFOL 200 MG/20 ML AMP IV ONE (18:19)
== END 2016-09-01 18:20 | disposition home or self-care (01) | DRG 871 ==
LOC: NEPE 17:05 → NEDA 18:47 → N07B 08-26 01:16 → HIME 08-26 05:40 → HOCA 08-29 16:28 → HOCB 08-30 18:26
PROVIDERS: ADMIT Family Medicine; ATTEND Family Medicine
PROC: 0DBP8ZX Excision of Rectum, Via Natural or Artificial Opening Endoscopic, Diagnostic (ICD-10-PCS; 2016-09-01)
PROC: 0DBL8ZX Excision of Transverse Colon, Via Natural or Artificial Opening Endoscopic, Diagnostic (ICD-10-PCS; 2016-09-01)
PROC: 0DBN8ZX Excision of Sigmoid Colon, Via Natural or Artificial Opening Endoscopic, Diagnostic (ICD-10-PCS; 2016-09-01)
PROC: 0DB58ZX Excision of Esophagus, Via Natural or Artificial Opening Endoscopic, Diagnostic (ICD-10-PCS; principal; 2016-09-01 11:27)
PROC: 0DB68ZX Excision of Stomach, Via Natural or Artificial Opening Endoscopic, Diagnostic (ICD-10-PCS; 2016-09-01 11:27)
DX: A41.9 Sepsis, unspecified organism (principal); J18.9 Pneumonia, unspecified organism; E87.2 Acidosis; N17.9 Acute kidney failure, unspecified; R18.8 Other ascites; I24.8 Other forms of acute ischemic heart disease; F33.2 Major depressive disorder, recurrent severe without psychotic features; C34.32 Malignant neoplasm of lower lobe, left bronchus or lung; R04.2 Hemoptysis; K92.1 Melena; D64.9 Anemia, unspecified; R09.02 Hypoxemia; I48.91 Unspecified atrial fibrillation; N28.9 Disorder of kidney and ureter, unspecified; I48.0 Paroxysmal atrial fibrillation; R10.30 Lower abdominal pain, unspecified; N92.6 Irregular menstruation, unspecified; Z21 Asymptomatic human immunodeficiency virus [HIV] infection status; K30 Functional dyspepsia; D25.9 Leiomyoma of uterus, unspecified; I07.1 Rheumatic tricuspid insufficiency; K21.0 Gastro-esophageal reflux disease with esophagitis; K76.0 Fatty (change of) liver, not elsewhere classified; K29.70 Gastritis, unspecified, without bleeding; K64.4 Residual hemorrhoidal skin tags; D12.5 Benign neoplasm of sigmoid colon; D12.3 Benign neoplasm of transverse colon; K63.5 Polyp of colon; K64.8 Other hemorrhoids; N83.209 Unspecified ovarian cyst, unspecified side; F12.90 Cannabis use, unspecified, uncomplicated; F14.90 Cocaine use, unspecified, uncomplicated; F17.210 Nicotine dependence, cigarettes, uncomplicated; F41.0 Panic disorder [episodic paroxysmal anxiety]; F41.1 Generalized anxiety disorder; Z88.5 Allergy status to narcotic agent
CPT/HCPCS: 71010; 71275; 74177; 80048; 80053; 81001; 82272; 82550; 82570; 82728; 82805; 82948; 83605; 83615; 83735; 83935; 84100; 84155; 84300; 84443; 84484; 84703; 85007; 85014; 85018; 85025; 85027; 85610; 85730; 86355; 86357; 86359; 86360; 87015; 87040; 87070; 87116; 87205; 87206; 87328; 87329; 87449; 87493; 87506; 87556; 87641; 87798; 88305; 88312; 93005; 93306; 94150; 94620; 94640; 94664; 94667; 94668; 96374; 96375; J0131; J0456; J0610; J0692; J0696; J1650; J1885; J2060; J2270; J2405; J2543; J2920; J2930; J3370; J7030; J7040; J7050; J7512; J7613; P9047; Q9963; Q9967

== ENCOUNTER 2017-06-27 10:00 | Inpatient (IN) | payer MEDICAID, OTHER ==
[~2017-06-27] VITALS: Ht 167.6 cm; Wt 65.0 kg
[2017-06-27] VITALS (7 sets, daily range): BP systolic 135–150; BP diastolic 87–100; PULSE 93–147; RESP 16–22; TEMP 97.8–99; O2SAT 98–99
[~2017-06-27 10:00] MED LIST: ALPR.5 PO; CARD180C5 PO; CLIN150 PO; DARU800T2 PO; ELVI1TAB3 PO; FLUO40CA PO; PANT40TA3 PO; PRED20 PO
[2017-06-27] MEDS ORDERED: OMEP40CA2 PO (10:15)
[2017-06-27] MEDS ORDERED: ACETAMINOPHEN 500 MG CPLT PO ONE (10:30)
[2017-06-27] MEDS ORDERED: SODIUM CHLOR 0.9% 1000 ML INJ 1,000 ML IV ONE ×2 (10:30)
[2017-06-27 11:04] LABS: AUTOMATED NEUTROPHIL # 2.6 TH/MM3 (1.8-7.7); BASOPHIL # 0.3 TH/MM3 (0-0.2); BASOPHIL % 6.8 % (0.0-2.0); EOSINOPHIL % 0.6 % (0.0-4.0); HEMATOCRIT 41.9 % (35.0-46.0); HEMOGLOBIN 14.6 GM/DL (11.6-15.3); LYMPH % 22.1 % (9.0-44.0); LYMPHOCYTE # 0.9 TH/MM3 (1.0-4.8); MEAN CELL VOLUME 99.1 FL (80.0-100.0); MEAN CORPUSCULAR HEMOGLOBIN 34.5 PG (27.0-34.0); MEAN CORPUSCULAR HGB CONC 34.8 % (32.0-36.0); MEAN PLATELET VOLUME 8.5 FL (7.0-11.0); MONO % 6.8 % (0.0-8.0); MONOCYTE # 0.3 TH/MM3 (0-0.9); NEUT % 63.7 % (16.0-70.0); PLATELET COUNT 171 TH/MM3 (150-450); RED BLOOD COUNT 4.22 MIL/MM3 (4.00-5.30); RED CELL DISTRIBUTION WIDTH 15.9 % (11.6-17.2); WHITE BLOOD COUNT 4.1 TH/MM3 (4.0-11.0)
[2017-06-27 11:15] LABS: INTERNATIONAL NORMALIZED RATIO 1.2 RATIO
[2017-06-27 11:19] LABS: ALBUMIN 3.8 GM/DL (3.4-5.0); ALT (GPT) 23 U/L (10-53); AST (GOT) 26 U/L (15-37); BICARBONATE 23.8 MEQ/L (21.0-32.0); BLOOD UREA NITROGEN 11 MG/DL (7-18); CHLORIDE 108 MEQ/L (98-107); GLOMERULAR FILTRATION RATE 95 ML/MIN (>89); GLUCOSE,RANDOM 81 MG/DL (74-106); LIPASE 142 U/L (73-393); SODIUM (NA) 139 MEQ/L (136-145)
[2017-06-27 11:24] LABS: ALKALINE PHOSPHATASE 109 U/L (45-117); TOTAL BILIRUBIN ADULT 0.4 MG/DL (0.2-1.0); TOTAL PROTEIN 8.6 GM/DL (6.4-8.2); TROPONIN I LESS THAN 0.02 NG/ML (0.02-0.05)
[2017-06-27] MEDS ORDERED: IOHEXOL 350 MG/ML 10 ML VIAL (for RAD DIAG) IVCONTRAST ONE (11:45)
--- NOTE | 2017-06-27 11:50 | RADRPT ---
EXAM DATE/TIME: 06/27/2017 11:32 [facility] COMPARISON: CT PULMONARY ANGIOGRAM, August 25, 2016, 18:01. INDICATIONS : Shortness of breath, right side chest pain. IV CONTRAST: 63 cc Omnipaque 350 (iohexol) IV RADIATION DOSE: 7.29 CTDIvol (mGy) MEDICAL HISTORY : Hypertension. Carcinoma, lung. SURGICAL HISTORY : None. ENCOUNTER: Initial ACUITY: 1 day PAIN SCALE: 4/10 LOCATION: Right chest TECHNIQUE: Volumetric scanning of the chest was performed using a pulmonary embolism protocol MIP images were re constructed. Using automated exposure control and adjustment of the mA and/or kV according to patien t size, radiation dose was kept as low as reasonably achievable to obtain optimal diagnostic quality images. DICOM format image data is available electronically for review and comparison. Follow-up recommendations for detected pulmonary nodules are based at a minimum on nodule size and pa tient risk factors according to Fleischner Society Guidelines. FINDINGS: PULMONARY ARTERIES: No filling defects are seen in the pulmonary arteries through the segmental level. LUNGS: Improvement with less consolidation in the right lower lobe. Left lung is clear. PLEURAE: There is no pleural thickening or pleural effusion. MEDIASTINUM: There is good visualization of the great vessels of the middle mediastinum. No evidence of mediastin al or hilar adenopathy/mass. MUSCULOSKELETAL: Within normal limits for patient age. MISCELLANEOUS: The visualized upper abdominal organs demonstrate no acute abnormality. CONCLUSION: Improvement with less consolidation in the right lower lobe. Air bronchograms persist. Negative for central pulmonary emboli Findings in the right lower lobe have persisted since 08/25/16. Followup would be of benefit.. Ac Maguire MD FACR on June 27, 2017 at 11:47 Board Certified Radiologist. This report was verified electronically.
--- NOTE | 2017-06-27 11:54 | RADRPT ---
EXAM DATE/TIME: 06/27/2017 10:44 [facility] COMPARISON: CHEST SINGLE AP, August 28, 2016, 4:28. INDICATIONS : Chest and back pain. MEDICAL HISTORY : HIV Carcinoma, lung. SURGICAL HISTORY : section. ENCOUNTER: Initial ACUITY: 1 week PAIN SCORE: 4/10 LOCATION: Bilateral posterior chest FINDINGS: Discoid atelectasis is noted within the right mid lung field. The heart is stable. The pulmonary vasc ular pattern is normal. The left lung is clear. CONCLUSION: Discoid atelectasis within the right mid lung field. Russell Ortega MD on June 27, 2017 at 11:52 Board Certified Radiologist. This report was verified electronically.
[2017-06-27] MEDS ORDERED: AZITHROMYCIN INJ 500 MG in SODIUM CHLOR 0.9% 250 ML INJ 250 ML IV ONE (13:30)
[2017-06-27] MEDS ORDERED: cefTRIAXone INJ 1,000 MG in SODIUM CHLORIDE 0.9% INJ 100 ML IV ONE (13:30)
--- NOTE | 2017-06-27 13:40 | HHI.HP ---
[facility] Service Family Medicine Primary Care Physician Juma Galindo MD Admission Diagnosis chest pain, and HIV Diagnoses: International Travel<30 Days: No Contact w/Intl Traveler<30days: No Known Affected Area: No History of Present Illness 42-year-old female with past history of anxiety, depression, HIV, aortic thrombus (resolved), presenting with flank pain. She states she's felt a similar pain like this last time she got pneumonia. This pain began on June 14. She reports a constant pain on her back right side, worsened when walking , taking breaths. Attempted to treat it with [id number] drugs, Tylenol, decreased pain from 7/10 to 6/10. She also happens to have a prescription for Flexeril which she attempted to use as well to no avail. She states she was recently seen in [facility] on 06/18 and 06/22 for the same problem. She states that no imaging was performed, they told her she had muscle spasms, and sent her home with Flexeril. She also reports she has been off her HAART medications for the past 2 weeks because she recently got a new doctor who is changing her to a different regimen. She currently sees Dr. Sánchez. Denies any nausea, vomiting, fever, chills, abdominal pain, change in stools, change in appetite, change in urine color/smell/frequency, chest pain, palpitations, shortness of breath. (Francis Jama MD R1) Review of Systems Constitutional: COMPLAINS OF: Fatigue, Weight gain (15 lbs in 2mo), DENIES: Diaphoretic episodes, Fever, Weight loss, Dizziness Endocrine: DENIES: Heat/cold intolerance, Polydipsia, Polyuria, Polyphagia Eyes: DENIES: Blurred vision, Diplopia, Eye inflammation, Eye pain, Vision loss , Photosensitivity, Double Vision Ears, nose, mouth, throat: DENIES: Hearing loss, Nasal discharge, Oral lesions , Throat pain, Ear Pain, Running Nose, Epistaxis, Odynophagia Respiratory: DENIES: Apneas, Cough, Wheezing, Hemoptysis, Sputum production, Shortness of breath Cardiovascular: DENIES: Palpitations, Syncope Gastrointestinal: DENIES: Abdominal pain, Black stools, Bloody stools, Diarrhea , Nausea, Vomiting Genitourinary: COMPLAINS OF: Urgency, DENIES: Abnormal vaginal bleeding, Urinary frequency, Urinary incontinence, Hematuria, Dysuria Musculoskeletal: COMPLAINS OF: Muscle aches, DENIES: Joint Swelling, Neck pain Integumentary: DENIES: Pruritus, Rash Hematologic/lymphatic: DENIES: Bruising, Lymphadenopathy Immunologic/allergic: DENIES: Eczema, Urticaria Neurologic: DENIES: Abnormal gait, Headache, Localized weakness, Paresthesias, Seizures, Speech Problems Psychiatric: DENIES: Anxiety, Confusion, Hallucinations, Suicidal Ideation, Homicidal Ideation (Francis Jama MD R1) Past Family Social History Past Medical History HIV positive 1997 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 Colmenares Youth Leader: Dr Florez Radiologist: Dr. Kraus Past Surgical History 2 past C-sections (Francis Jama MD R1) Allergies: Coded Allergies: No Known Allergies (Unverified , 06/27/17) Family History Mother: HTN, anxiety Father: Prostate cancer Brother: HTN Social History EtOH: Rarely Tobacco: 1/2 pack a day for 20 years Drugs: occasional marijuana (Francis Jama MD R1) Physical Exam Vital Signs Vital Signs Date Time Temp Pulse Resp B/P (MAP) Pulse Ox O2 Delivery O2 Flow Rate FiO2 06/27/17 11:57 18 06/27/17 10:34 99 Room Air 06/27/17 10:34 99 Room Air 06/27/17 10:09 133 25 99 Room Air 06/27/17 10:05 98.2 137 20 150/100 (117) 99 06/27/17 10:01 98.1 147 22 135/91 (106) 98 Room Air Physical Exam GENERAL: This is a well-nourished, well-developed patient, in no apparent distress. SKIN: No rashes, ecchymoses or lesions. Cool and dry. HEAD: Atraumatic. Normocephalic. No temporal or scalp tenderness. EYES: Pupils equal round and reactive. Extraocular motions intact. No scleral icterus. No injection or drainage. ENT: Nose without bleeding, purulent drainage or septal hematoma. Throat without erythema, tonsillar hypertrophy or exudate. Uvula midline. Airway patent. NECK: Trachea midline. No JVD or lymphadenopathy. Supple, nontender, no meningeal signs. CARDIOVASCULAR: Regular rate and rhythm without murmurs, gallops, or rubs. RESPIRATORY: Clear to auscultation. Breath sounds equal bilaterally. No wheezes , rales, or rhonchi. GASTROINTESTINAL: Abdomen soft, non-tender, nondistended. No hepato-splenomegaly , or palpable masses. No guarding. MUSCULOSKELETAL: Extremities without clubbing, cyanosis, or edema. No joint tenderness, effusion, or edema noted. No calf tenderness. NEUROLOGICAL: Awake and alert. Motor and sensory grossly within normal limits. Five out of 5 muscle strength in all muscle groups. Normal speech. Laboratory Laboratory Tests Test 06/27/17 10:40 White Blood Count 4.1 Red Blood Count 4.22 Hemoglobin 14.6 Hematocrit 41.9 Mean Corpuscular Volume 99.1 Mean Corpuscular Hemoglobin 34.5 Mean Corpuscular Hemoglobin Concent 34.8 Red Cell Distribution Width 15.9 Platelet Count 171 Mean Platelet Volume 8.5 Neutrophils (%) (Auto) 63.7 Lymphocytes (%) (Auto) 22.1 Monocytes (%) (Auto) 6.8 Eosinophils (%) (Auto) 0.6 Basophils (%) (Auto) 6.8 Neutrophils # (Auto) 2.6 Lymphocytes # (Auto) 0.9 Monocytes # (Auto) 0.3 Eosinophils # (Auto) 0.0 Basophils # (Auto) 0.3 CBC Comment DIFF FINAL Differential Comment Prothrombin Time 12.0 Prothromb Time International Ratio 1.2 Activated Partial Thromboplast Time 29.0 Blood Urea Nitrogen 11 Creatinine 0.80 Random Glucose 81 Total Protein 8.6 Albumin 3.8 Calcium Level 9.0 Alkaline Phosphatase 109 Aspartate Amino Transf (AST/SGOT) 26 Alanine Aminotransferase (ALT/SGPT) 23 Total Bilirubin 0.4 Sodium Level 139 Potassium Level 3.4 Chloride Level 108 Carbon Dioxide Level 23.8 Anion Gap 7 Estimat Glomerular Filtration Rate 95 Lactic Acid Level 1.2 Troponin I LESS THAN 0.02 Lipase 142 Human Chorionic Gonadotropin, Quant LESS THAN 1 Date/Time Source Procedure Growth Status 06/27/17 10:45 Blood Peripheral Aerobic Blood Culture Pending Received 06/27/17 10:45 Blood Peripheral Anaerobic Blood Culture Pending Received 06/27/17 10:50 Nasal Washing Influenza Types A,B Antigen (MITRA) - Final NEGATIVE FOR FLU A AND B ANTIGEN.... Complete (Francis Jama MD R1) Result Diagram: 06/27/17 1040 06/27/17 1040 Imaging Last 24 hours Impressions Chest X-Ray 06/27/17 1024 Signed Impressions: Service Date/Time: Tuesday, June 27, 2017 10:44 - CONCLUSION: Discoid atelectasis within the right mid lung field. Russell Ortega MD CT Angiography 06/27/17 0000 Signed Impressions: Service Date/Time: Tuesday, June 27, 2017 11:32 - CONCLUSION: Improvement with less consolidation in the right lower lobe. Air bronchograms persist. Negative for central pulmonary emboli Findings in the right lower lobe have persisted since 08/25/16. Followup would be of benefit.. Ac Maguire MD FACR (Francis Jama MD R1) Caprini VTE Risk Assessment Caprini VTE Risk Assessment: Mod/High Risk (score >= 2) Caprini Risk Assessment Model Point Value = 1 Point Value = 2 Point Value = 3 Point Value = 5 Age 41-60 Minor surgery BMI > 25 kg/m2 Swollen legs Varicose veins or History of unexplained or recurrent spontaneous Oral contraceptives or hormone replacement Sepsis (< 1 month) Serious lung disease, including pneumonia (< 1 month) Abnormal pulmonary function Acute myocardial infarction Congestive heart failure (< 1 month) History of inflammatory bowel disease Medical patient at bed rest Age 61-74 Arthroscopic surgery Major open surgery (> 45 min) Laparoscopic surgery (> 45 min) Malignancy Confined to bed (> 72 hours) Immobilizing plaster cast Central venous access Age >= 75 History of VTE Family history of VTE Factor V Leiden Prothrombin [id number] Lupus anticoagulant Anticardiolipin antibodies Elevated serum homocysteine Heparin-induced thrombocytopenia Other congenital or acquired thrombophilia Stroke (< 1 month) Elective arthroplasty Hip, pelvis, or leg fracture Acute spinal cord injury (< 1 month) Prophylaxis Regimen Total Risk Factor Score Risk Level Prophylaxis Regimen 0-1 Low Early ambulation 2 Moderate Order ONE of the following: *Sequential Compression Device (SCD) *Heparin 5000 units SQ BID 3-4 Higher Order ONE of the following medications: *Heparin 5000 units SQ TID *Enoxaparin/Lovenox 40 mg SQ daily (WT < 150 kg, CrCl > 30 mL/min) *Enoxaparin/Lovenox 30 mg SQ daily (WT < 150 kg, CrCl > 10-29 mL/min) *Enoxaparin/Lovenox 30 mg SQ BID (WT < 150 kg, CrCl > 30 mL/min) AND/OR *Sequential Compression Device (SCD) 5 or more Highest Order ONE of the following medications: *Heparin 5000 units SQ TID (Preferred with Epidurals) *Enoxaparin/Lovenox 40 mg SQ daily (WT < 150 kg, CrCl > 30 mL/min) *Enoxaparin/Lovenox 30 mg SQ daily (WT < 150 kg, CrCl > 10-29 mL/min) *Enoxaparin/Lovenox 30 mg SQ BID (WT < 150 kg, CrCl > 30 mL/min) AND *Sequential Compression Device (SCD) (Francis Jama MD R1) Assessment and Plan Assessment and Plan 42-year-old female with past history of anxiety, depression, HIV, admitted for pneumonia. Afebrile, leukocytosis however tachycardic up to 140s, respiratory rate in the mid 20s, states this is how it felt last time she had pneumonia. Discoid atelectasis in mid right lung field on chest x-ray. (Francis Jama MD R1) Problem List: (1) Pneumonia ICD Codes: J18.9 - Pneumonia, unspecified organism Status: Acute Plan: History of multiple pneumonias, HIV, discoid atelectasis in right lung field. Tachycardic, tachypneic and states this is how it felt last time she pneumonia. Has recently been in a hospital, must consider hospital-acquired pneumonia -Azithromycin 500 mg every 24 hours -Zosyn 4.5 g every 6 hours -Acetaminophen 650 mg every 4 when necessary for fever -Follow up infectious disease recommendations -Technically meets sepsis criteria, see below (2) Sepsis ICD Codes: A41.9 - Sepsis, unspecified organism Status: Resolved Plan: Currently qualifies for sepsis criteria. Tachycardia up to 147, tachypnea up to 25. No leukocytosis, afebrile. History of HIV. -Follow up blood cultures -Currently being treated for pneumonia above -Lactic acid 1.2, within normal limits -Observe for systemic features (3) HIV (human immunodeficiency virus infection) ICD Codes: Z21 - Asymptomatic human immunodeficiency virus [HIV] infection status Status: Chronic Plan: Patient reports she currently has been off of her HAART therapy for the past 2 weeks. This was due to recently obtained new physician who is changing over her therapy. -Cannot continue home medication at this time due to unavailability in-hospital -Infectious disease consulted, appreciate recommendations. (4) Anxiety with depression ICD Codes: F41.8 - Other specified anxiety disorders Status: Acute Plan: History of anxiety and depression -Continue home medication -Xanax 0.5 mg 2 times a day when necessary -Prozac 40 mg daily (5) Nutrition, metabolism, and development symptoms ICD Codes: R63.8 - Other symptoms and signs concerning food and fluid intake Status: Acute Plan: Fluids: Tolerating by mouth fluids Electrolytes: Monitor and correct as needed Nutrition: Full regular diet Prophylaxis: Currently on Pradaxa (Francis Jama MD R1) Problem List: (1) Pneumonia ICD Codes: J18.9 - Pneumonia, unspecified organism Status: Acute Plan: History of multiple pneumonias, HIV, discoid atelectasis in right lung field. Tachycardic, tachypneic and states this is how it felt last time she pneumonia. Has recently been in a hospital, must consider hospital-acquired pneumonia -Azithromycin 500 mg every 24 hours -Zosyn 4.5 g every 6 hours -Acetaminophen 650 mg every 4 when necessary for fever -Follow up infectious disease recommendations -Technically meets sepsis criteria, see below (2) Sepsis ICD Codes: A41.9 - Sepsis, unspecified organism Status: Resolved Plan: Currently qualifies for sepsis criteria. Tachycardia up to 147, tachypnea up to 25. No leukocytosis, afebrile. History of HIV. -Follow up blood cultures -Currently being treated for pneumonia above -Lactic acid 1.2, within normal limits -Observe for systemic features (3) HIV (human immunodeficiency virus infection) ICD Codes: Z21 - Asymptomatic human immunodeficiency virus [HIV] infection status Status: Chronic Plan: Patient reports she currently has been off of her HAART therapy for the past 2 weeks. This was due to recently obtained new physician who is changing over her therapy. -Cannot continue home medication at this time due to unavailability in-hospital -Infectious disease consulted, appreciate recommendations. (4) Anxiety with depression ICD Codes: F41.8 - Other specified anxiety disorders Status: Acute Plan: History of anxiety and depression -Continue home medication -Xanax 0.5 mg 2 times a day when necessary -Prozac 40 mg daily (5) Nutrition, metabolism, and development symptoms ICD Codes: R63.8 - Other symptoms and signs concerning food and fluid intake Status: Acute Plan: Fluids: Tolerating by mouth fluids Electrolytes: Monitor and correct as needed Nutrition: Full regular diet Prophylaxis: Currently on Pradaxa See the residents documentation for details. I saw and evaluated the patient regarding the ely portions of this evaluation and agree with the residents findings and plans as written. I have reviewed the patients past medical/surgical and social histories and updated as appropriate. Parts of this note were created using [employer] voice recognition software program. While efforts were made to correct any mistakes made by this software, some mistakes, errors, and omissions may remain in the final note that were not caught when the note was originally created. Plan of care was discussed and agreed upon with the patient as specifically documented in the above note. An opportunity to ask questions with explanation was provided. Patient voiced understanding on all information reviewed and discussed. (Torres Regalado MD) Physician Certification 2 Midnight Certification Type: Admission for Inpatient Services Order for Inpatient Services The services are ordered in accordance with Medicare regulations or non- Medicare payer requirements, as applicable. In the case of services not specified as inpatient-only, they are appropriately provided as inpatient services in accordance with the 2-midnight benchmark. Estimated LOS (days): 2 2 days is the estimated time the patient will need to remain in the hospital, assuming treatment plan goals are met and no additional complications. Post-Hospital Plan: Home (Francis Jama MD R1) Francis Jama MD R1 Jun 27, 2017 13:40 Torres Regalado MD Jun 28, 2017 15:20
--- NOTE | 2017-06-27 14:11 | PD ---
HPI Chief Complaint: Respiratory Distress Time Seen by Provider: 10:14 Travel History International Travel<30 days: No Contact w/Intl Traveler<30days: No Traveled to known affect area: No History of Present Illness HPI So 42-year-old woman who presents to the emergency department complaining of severe right sided flank pain. She is a history of HIV, last CD4 count in the 100s. She was taking her antiretroviral medication until about 2 weeks ago when she ran out. She reports agreement change it. She has a history of blood clot in her aorta for which she is taking Pradaxa. States it feels like when she's had pneumonia before but she has not had any cough or cold symptoms. She has had chills and sweats, shortness of breath, and this persistent right sided flank and chest pain it's been ongoing for the past several days. Symptoms did worsen to the point that she can the emergency room today. No other associated symptoms. No other complaints. History Past Medical History Narrative Medical HIV, diagnosed 1996, last CD4 count 100 Reported history of a blood clot in her aorta according to her report, from December of this year, on Pradaxa History of A. 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 Patient not a candidate for chemotherapy or surgery because of HIV per her report. Tetanus Vaccination: Unknown Influenza Vaccination: No Menopausal: Yes Social History Alcohol Use: No Tobacco Use: Yes (QUIT 2 MONTHS AGO ) Allergies-Medications (Allergen,Severity, Reaction): Coded Allergies: No Known Allergies (Unverified , 06/27/17) Reported Meds & Prescriptions Reported Meds & Active Scripts Active Cardizem CD 24 HR (Diltiazem CD 24 HR) 180 Mg Caper 180 Mg PO DAILY Reported Omeprazole 40 Mg Cap 40 Mg PO DAILY Prezista (Darunavir) 800 Mg Tab 800 Mg PO DAILY Genvoya (Mhwnjbyspwwu-Bhmjfbmibx-Lqpfgggyfadx-Tenofvir) [id number] Mg Tab 1 Tab PO DAILY Review of Systems Except as stated in HPI: all other systems reviewed are Neg Physical Exam Narrative GENERAL: 42-year-old woman, ill-appearing, diaphoretic. SKIN: Focused skin assessment warm/dry. HEAD: Atraumatic. Normocephalic. EYES: Pupils equal and round. No scleral icterus. No injection or drainage. ENT: No nasal bleeding or discharge. Mucous membranes pink and moist. NECK: Trachea midline. No JVD. CARDIOVASCULAR: Heart rate rapid but regular. No appreciable murmurs. RESPIRATORY: No accessory muscle use. Clear to auscultation. Breath sounds equal bilaterally. GASTROINTESTINAL: Abdomen soft, non-tender, nondistended. Hepatic and splenic margins not palpable. MUSCULOSKELETAL: No obvious deformities. No edema. NEUROLOGICAL: Awake and alert. No obvious cranial nerve deficits. Motor grossly within normal limits. Normal speech. PSYCHIATRIC: Appropriate mood and affect; insight and judgment normal. Data Data Last Documented VS Vital Signs Date Time Temp Pulse Resp B/P (MAP) Pulse Ox O2 Delivery O2 Flow Rate FiO2 06/27/17 11:57 18 06/27/17 10:34 99 Room Air 06/27/17 10:34 06/27/17 10:09 133 06/27/17 10:05 98.2 Orders Orders Sepsis Workup Initiated (06/27/17 ) Complete Blood Count With Diff (06/27/17 10:24) Comprehensive Metabolic Panel (06/27/17 10:24) Beta Hcg (Quant/Titer) (06/27/17 10:24) Prothrombin Time / Inr (Pt) (06/27/17 10:24) Act Partial Throm Time (Ptt) (06/27/17 10:24) Lactic Acid Sepsis Protocol (06/27/17 10:24) Lipase (06/27/17 10:24) Troponin I (06/27/17 10:24) Urinalysis - C+S If Indicated (06/27/17 10:24) Influenzae A/B Antigen (06/27/17 10:24) Blood Culture (06/27/17 10:24) Chest, Single Ap (06/27/17 10:24) Blood Glucose (06/27/17 10:24) Ecg Monitoring (06/27/17 10:24) Iv Access Insert/Monitor (06/27/17 10:24) Oximetry (06/27/17 10:24) Oxygen Administration (06/27/17 10:24) Sodium Chlor 0.9% 1000 Ml Inj (Ns 1000 M (06/27/17 10:30) Sodium Chlor 0.9% 1000 Ml Inj (Ns 1000 M (06/27/17 10:30) Acetaminophen (Tylenol) (06/27/17 10:30) Ct Pulmonary Angiogram (06/27/17 ) Iohexol 350 Inj (Omnipaque 350 Inj) (06/27/17 11:45) Ceftriaxone Inj (Rocephin Inj) (06/27/17 13:30) Azithromycin Inj (Zithromax Inj) (06/27/17 13:30) Admit Order (Ed Use Only) (06/27/17 ) Labs Laboratory Tests Test 06/27/17 10:40 White Blood Count 4.1 TH/MM3 Red Blood Count 4.22 MIL/MM3 Hemoglobin 14.6 GM/DL Hematocrit 41.9 % Mean Corpuscular Volume 99.1 FL Mean Corpuscular Hemoglobin 34.5 PG Mean Corpuscular Hemoglobin Concent 34.8 % Red Cell Distribution Width 15.9 % Platelet Count 171 TH/MM3 Mean Platelet Volume 8.5 FL Neutrophils (%) (Auto) 63.7 % Lymphocytes (%) (Auto) 22.1 % Monocytes (%) (Auto) 6.8 % Eosinophils (%) (Auto) 0.6 % Basophils (%) (Auto) 6.8 % Neutrophils # (Auto) 2.6 TH/MM3 Lymphocytes # (Auto) 0.9 TH/MM3 Monocytes # (Auto) 0.3 TH/MM3 Eosinophils # (Auto) 0.0 TH/MM3 Basophils # (Auto) 0.3 TH/MM3 CBC Comment DIFF FINAL Differential Comment Prothrombin Time 12.0 SEC Prothromb Time International Ratio 1.2 RATIO Activated Partial Thromboplast Time 29.0 SEC Blood Urea Nitrogen 11 MG/DL Creatinine 0.80 MG/DL Random Glucose 81 MG/DL Total Protein 8.6 GM/DL Albumin 3.8 GM/DL Calcium Level 9.0 MG/DL Alkaline Phosphatase 109 U/L Aspartate Amino Transf (AST/SGOT) 26 U/L Alanine Aminotransferase (ALT/SGPT) 23 U/L Total Bilirubin 0.4 MG/DL Sodium Level 139 MEQ/L Potassium Level 3.4 MEQ/L Chloride Level 108 MEQ/L Carbon Dioxide Level 23.8 MEQ/L Anion Gap 7 MEQ/L Estimat Glomerular Filtration Rate 95 ML/MIN Lactic Acid Level 1.2 mmol/L Troponin I LESS THAN 0.02 NG/ML Lipase 142 U/L Human Chorionic Gonadotropin, Quant LESS THAN 1 MIU/ML MDM Medical Decision Making Medical Screen Exam Complete: Yes Emergency Medical Condition: Yes Interpretation(s) My review of EKG: Sinus tachycardia rate of 133, normal axis, normal vitals, no acute ischemia. LABS: CBC is unremarkable. CMP is unremarkable. Troponins negative. HCG is negative. Lipase is normal. Lactate is 1.2. Chest x-ray: Discoid atelectasis. CT a: Improvement with less consolidation the right lower lobe. Air bronchograms persist. Negative for central pulmonary emboli. Differential Diagnosis Pneumonia, HIV, PE, pleurisy, other Narrative Course Medical decision making This a 42-year-old woman presents emergent from his right sided flank pain fevers chills and advanced HIV/AIDS. CT shows some persistent infiltrate although looks improved from earlier. My suspicion is she likely has pneumonia. Infection may not be as obvious due to patient's low CD4 count. I spoke with the family medicine residents, will admit for presumptive treatment and monitoring given abnormal vital signs and high risk. Diagnosis Primary Impression: Pneumonia Osmin Dewey MD Jun 27, 2017 14:11
[2017-06-27] MEDS ORDERED: SODIUM CHLORIDE 0.9% FLUSH 10 ML FLUSH IV FLUSH PRN (14:15)
[2017-06-27] MEDS ORDERED: MAGNESIUM HYDROXIDE SUSP 30 ML CUP PO PRN (14:15)
[2017-06-27] MEDS ORDERED: LACTULOSE SYRUP 20 GM/30 ML CUP PO PRN (14:15)
[2017-06-27] MEDS ORDERED: NALOXONE HCL 0.4 MG/ML AMP IV PUSH PRN ×2 (14:15→16:00)
[2017-06-27] MEDS ORDERED: SENNOSIDES 8.6 MG TAB PO PRN (14:15)
[2017-06-27] MEDS ORDERED: BISACODYL 10 MG SUPP RECTAL PRN (14:15)
[2017-06-27] MEDS ORDERED: ACETAMINOPHEN 325 MG TAB PO PRN (14:15)
[2017-06-27] MEDS ORDERED: AZITHROMYCIN INJ 500 MG in SODIUM CHLOR 0.9% 250 ML INJ 250 ML IV SCH (15:00)
[2017-06-27] MEDS ORDERED: MORPHINE SULFATE 2 MG/ML INJ IV PUSH PRN (16:00)
[2017-06-27] MEDS ORDERED: ACETAMINOPHEN/HYDROcodone 325 MG/5 MG TAB PO PRN (16:00)
[2017-06-27] MEDS: PIPERACIL-TAZO 4.5 GM PREMIX 100 ML IV SCH ×2 (16:13→21:33)
[2017-06-27] MEDS: ONDANSETRON HCL 4 MG/2 ML VIAL IVP PRN (17:17)
[2017-06-27] MEDS: ACETAMINOPHEN/HYDROcodone 325 MG/7.5 MG TAB PO PRN ×2 (17:19→21:34)
[2017-06-27] MEDS: SODIUM CHLORIDE 0.9% FLUSH 10 ML FLUSH IV FLUSH SCH (21:00)
[2017-06-27] MEDS: DABIGATRAN ETEXILATE 150 MG CAP PO SCH (21:33)
[2017-06-27] MEDS: DOCUSATE SODIUM 50 MG/SENNA 8.6 MG TAB PO SCH (21:34)
[2017-06-27] MEDS: ALPRAZolam 0.5 MG TAB PO PRN (21:34)
[2017-06-28] VITALS (10 sets, daily range): BP systolic 115–147; BP diastolic 77–91; PULSE 76–115; RESP 16–20; TEMP 97.6–98.3; O2SAT 98–100
[2017-06-28] MEDS: ONDANSETRON HCL 4 MG/2 ML VIAL IVP PRN ×2 (01:33→20:57)
[2017-06-28] MEDS: PIPERACIL-TAZO 4.5 GM PREMIX 100 ML IV SCH ×4 (01:33→20:57)
[2017-06-28] MEDS: ACETAMINOPHEN/HYDROcodone 325 MG/7.5 MG TAB PO PRN ×5 (01:33→20:57)
[2017-06-28 05:59] LABS: HEMATOCRIT 36.1 % (35.0-46.0); HEMOGLOBIN 12.6 GM/DL (11.6-15.3); MEAN CELL VOLUME 99.2 FL (80.0-100.0); MEAN CORPUSCULAR HEMOGLOBIN 34.5 PG (27.0-34.0); MEAN CORPUSCULAR HGB CONC 34.8 % (32.0-36.0); MEAN PLATELET VOLUME 8.7 FL (7.0-11.0); PLATELET COUNT 142 TH/MM3 (150-450); RED BLOOD COUNT 3.64 MIL/MM3 (4.00-5.30); RED CELL DISTRIBUTION WIDTH 15.7 % (11.6-17.2); WHITE BLOOD COUNT 3.2 TH/MM3 (4.0-11.0)
[2017-06-28 06:23] LABS: BICARBONATE 22.6 MEQ/L (21.0-32.0); CALCIUM 8.5 MG/DL (8.5-10.1); CREATININE 0.58 MG/DL (0.50-1.00)
[2017-06-28] MEDS ORDERED: PNEUMOCOCCAL POLYVALENT INJ 25 MCG/0.5 ML SYR IM ONE (09:00)
[2017-06-28] MEDS ORDERED: NON-FORMULARY DRUG (Elvitegravir-Cobicistat-Emtricitabin-Tenofvir (Genvoya) 1 TAB) PO SCH (09:00)
[2017-06-28] MEDS ORDERED: DARUNAVIR 800 MG TAB PO SCH (09:00)
[2017-06-28] MEDS ORDERED: INFLUENZA VIRUS VACCINE (QUADRIVALENT) 0.5 ML SYR IM ONE (09:00)
[2017-06-28] MEDS: FLUoxetine HCL 20 MG CAP PO SCH (09:23)
[2017-06-28] MEDS: PANTOPRAZOLE SOD 40 MG DELAYED RELEASE TAB PO SCH (09:23)
[2017-06-28] MEDS: DOCUSATE SODIUM 50 MG/SENNA 8.6 MG TAB PO SCH ×2 (09:23→20:57)
[2017-06-28] MEDS: DABIGATRAN ETEXILATE 150 MG CAP PO SCH ×2 (09:23→20:57)
[2017-06-28] MEDS: DILTIAZEM-CD 180 MG CAP ER PO SCH (09:23)
[2017-06-28] MEDS: ALPRAZolam 0.5 MG TAB PO PRN ×2 (10:15→20:57)
[2017-06-28] MEDS ORDERED: AZITHROMYCIN INJ 500 MG in SODIUM CHLOR 0.9% 250 ML INJ 250 ML IV SCH (13:00)
[2017-06-28] MEDS ORDERED: PANTOPRAZOLE SOD 20 MG DELAYED RELEASE TAB PO SCH (13:30)
--- NOTE | 2017-06-28 14:48 | HHI.HP ---
[facility] Service Family Medicine Primary Care Physician Juma Galindo MD Admission Diagnosis chest pain, and HIV Diagnoses: (1) Pneumonia (2) Sepsis (3) HIV (human immunodeficiency virus infection) (4) Anxiety with depression (5) Nutrition, metabolism, and development symptoms International Travel<30 Days: No Contact w/Intl Traveler<30days: No Known Affected Area: No History of Present Illness Patient seen and examined at bedside today. She states she's doing better. Symptoms of an improving. Continues to have some discomfort over the right flank. Describes having similar symptoms with pneumonia in the past. States that she was evaluated for meningitis at [facility] [place], which states was negative. Denies any complaints of chest pain, shortness of breath, or lightheadedness. He has been on HAART therapy in the past, but states she's been off the medication for several weeks. Denies any fevers or chills during the night. Review of Systems Constitutional: DENIES: Fatigue, Fever, Weight gain, Weight loss, Chills Other REVIEW OF SYSTEMS: General: Denies fever or other problems. Skin: Denies rash. HEENT: No diplopia. No epistaxis. No headache. Head: Denies head injury. Respiratory: No cough. Denies shortness of breath. Discomfort over the right flank. Cardiovascular: No chest pain. No reduced exercise tolerance. Gastrointestinal: No abdominal pain. No constipation or diarrhea. No hematemesis and rectal bleeding. Genitourinary: No abnormal urination. Hematologic: No easy bruisability. Psychiatric: Denies problems. 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 Colmenares Wax Room Supervisor: Dr Florez Radiologist: Dr. Kraus Past Surgical History 2 past C-sections Allergies: Coded Allergies: No Known Allergies (Unverified , 06/27/17) Family History Mother: HTN, anxiety Father: Prostate cancer Brother: HTN Social History EtOH: Rarely Tobacco: 1/2 pack a day for 20 years Drugs: occasional marijuana Physical Exam Vital Signs Vital Signs Date Time Temp Pulse Resp B/P (MAP) Pulse Ox O2 Delivery O2 Flow Rate FiO2 06/28/17 12:51 20 06/28/17 12:00 98.1 102 20 147/91 (109) 98 06/28/17 08:00 97.8 106 20 141/81 (101) 100 06/28/17 05:52 98.2 115 16 115/78 (90) 100 06/28/17 04:36 Room Air 06/28/17 04:35 76 06/28/17 00:00 Room Air 06/28/17 00:00 84 06/27/17 23:15 97.8 100 16 142/87 (105) 98 06/27/17 20:15 100 06/27/17 20:00 Room Air 06/27/17 20:00 Room Air 06/27/17 19:39 98.1 93 16 141/93 (109) 98 06/27/17 18:17 Room Air 06/27/17 16:41 99.0 102 18 143/91 (108) 99 06/27/17 14:59 Physical Exam GENERAL: This is a well-nourished, well-developed patient, in no apparent distress. SKIN: No rashes, ecchymoses or lesions. Cool and dry. HEAD: Atraumatic. Normocephalic. No temporal or scalp tenderness. EYES: Pupils equal round and reactive. Extraocular motions intact. No scleral icterus. No injection or drainage. ENT: Nose without bleeding, purulent drainage or septal hematoma. Throat without erythema, tonsillar hypertrophy or exudate. Uvula midline. Airway patent. NECK: Trachea midline. No JVD or lymphadenopathy. Supple, nontender, no meningeal signs. CARDIOVASCULAR: Regular rate and rhythm without murmurs, gallops, or rubs. RESPIRATORY: Clear to auscultation. Breath sounds equal bilaterally. No wheezes , rales, or rhonchi. GASTROINTESTINAL: Abdomen soft, non-tender, nondistended. No hepato-splenomegaly , or palpable masses. No guarding. MUSCULOSKELETAL: Extremities without clubbing, cyanosis, or edema. No joint tenderness, effusion, or edema noted. No calf tenderness. Negative Homans sign bilaterally. Tender to palpation over the lower lateral angle of the scapula. Multiple palpable muscle spasm around the area. NEUROLOGICAL: Awake and alert. Cranial nerves II through XII intact. Motor and sensory grossly within normal limits. Five out of 5 muscle strength in all muscle groups. Normal speech. Laboratory Laboratory Tests Test 06/28/17 03:48 White Blood Count 3.2 Red Blood Count 3.64 Hemoglobin 12.6 Hematocrit 36.1 Mean Corpuscular Volume 99.2 Mean Corpuscular Hemoglobin 34.5 Mean Corpuscular Hemoglobin Concent 34.8 Red Cell Distribution Width 15.7 Platelet Count 142 Mean Platelet Volume 8.7 Blood Urea Nitrogen 6 Creatinine 0.58 Random Glucose 70 Calcium Level 8.5 Sodium Level 140 Potassium Level 3.9 Chloride Level 109 Carbon Dioxide Level 22.6 Anion Gap 8 Estimat Glomerular Filtration Rate 137 Date/Time Source Procedure Growth Status 06/27/17 10:45 Blood Peripheral Aerobic Blood Culture - Preliminary NO GROWTH IN 1 DAY Resulted 06/27/17 10:45 Blood Peripheral Anaerobic Blood Culture - Preliminary NO GROWTH IN 1 DAY Resulted 06/27/17 10:50 Nasal Washing Influenza Types A,B Antigen (MITRA) - Final NEGATIVE FOR FLU A AND B ANTIGEN.... Complete Result Diagram: 06/28/17 0348 06/28/17 0348 Imaging Last 24 hours Impressions Chest X-Ray 06/27/17 1024 Signed Impressions: Service Date/Time: Tuesday, June 27, 2017 10:44 - CONCLUSION: Discoid atelectasis within the right mid lung field. Russell Ortega MD CT Angiography 06/27/17 0000 Signed Impressions: Service Date/Time: Tuesday, June 27, 2017 11:32 - CONCLUSION: Improvement with less consolidation in the right lower lobe. Air bronchograms persist. Negative for central pulmonary emboli Findings in the right lower lobe have persisted since 08/25/16. Followup would be of benefit.. Ac Maguire MD FACR Caprini VTE Risk Assessment Caprini VTE Risk Assessment: Mod/High Risk (score >= 2) Caprini Risk Assessment Model Point Value = 1 Point Value = 2 Point Value = 3 Point Value = 5 Age 41-60 Minor surgery BMI > 25 kg/m2 Swollen legs Varicose veins or History of unexplained or recurrent spontaneous Oral contraceptives or hormone replacement Sepsis (< 1 month) Serious lung disease, including pneumonia (< 1 month) Abnormal pulmonary function Acute myocardial infarction Congestive heart failure (< 1 month) History of inflammatory bowel disease Medical patient at bed rest Age 61-74 Arthroscopic surgery Major open surgery (> 45 min) Laparoscopic surgery (> 45 min) Malignancy Confined to bed (> 72 hours) Immobilizing plaster cast Central venous access Age >= 75 History of VTE Family history of VTE Factor V Leiden Prothrombin [id number] Lupus anticoagulant Anticardiolipin antibodies Elevated serum homocysteine Heparin-induced thrombocytopenia Other congenital or acquired thrombophilia Stroke (< 1 month) Elective arthroplasty Hip, pelvis, or leg fracture Acute spinal cord injury (< 1 month) Prophylaxis Regimen Total Risk Factor Score Risk Level Prophylaxis Regimen 0-1 Low Early ambulation 2 Moderate Order ONE of the following: *Sequential Compression Device (SCD) *Heparin 5000 units SQ BID 3-4 Higher Order ONE of the following medications: *Heparin 5000 units SQ TID *Enoxaparin/Lovenox 40 mg SQ daily (WT < 150 kg, CrCl > 30 mL/min) *Enoxaparin/Lovenox 30 mg SQ daily (WT < 150 kg, CrCl > 10-29 mL/min) *Enoxaparin/Lovenox 30 mg SQ BID (WT < 150 kg, CrCl > 30 mL/min) AND/OR *Sequential Compression Device (SCD) 5 or more Highest Order ONE of the following medications: *Heparin 5000 units SQ TID (Preferred with Epidurals) *Enoxaparin/Lovenox 40 mg SQ daily (WT < 150 kg, CrCl > 30 mL/min) *Enoxaparin/Lovenox 30 mg SQ daily (WT < 150 kg, CrCl > 10-29 mL/min) *Enoxaparin/Lovenox 30 mg SQ BID (WT < 150 kg, CrCl > 30 mL/min) AND *Sequential Compression Device (SCD) Assessment and Plan Assessment and Plan 42-year-old female with past history of anxiety, depression, HIV, admitted for pneumonia. Afebrile, leukocytosis however tachycardic up to 140s, respiratory rate in the mid 20s, states this is how it felt last time she had pneumonia. Discoid atelectasis in mid right lung field on chest x-ray. Problem List: (1) Pneumonia ICD Codes: J18.9 - Pneumonia, unspecified organism Status: Acute Plan: Reviewed patient's imaging, and discussed with her about imaging findings. Patient placed on antibiotics. We'll appreciate input from infectious disease. It seems that the patient's symptoms are improving at this time. Has had pneumonia in the past several times. We'll attempt to acquire records from [facility] [place]. (2) Sepsis ICD Codes: A41.9 - Sepsis, unspecified organism Status: Resolved Plan: Following up on cultures at this time. Hydration. Broad-spectrum antibiotics. Symptoms are improving. Continue to monitor. (3) HIV (human immunodeficiency virus infection) ICD Codes: Z21 - Asymptomatic human immunodeficiency virus [HIV] infection status Status: Chronic Plan: Has been off her medication for several weeks. We'll follow recommendations from ID. (4) Anxiety with depression ICD Codes: F41.8 - Other specified anxiety disorders Status: Acute Plan: We started patient home medication. Seems to be under control at this time. (5) Nutrition, metabolism, and development symptoms ICD Codes: R63.8 - Other symptoms and signs concerning food and fluid intake Status: Acute Plan: Fluids: Tolerating by mouth fluids Electrolytes: Monitor and correct as needed Nutrition: Full regular diet Prophylaxis: Currently on Pradaxa I have reviewed the patients past medical/surgical and social histories and updated as appropriate. Parts of this note were created using [employer] voice recognition software program. While efforts were made to correct any mistakes made by this software, some mistakes, errors, and omissions may remain in the final note that were not caught when the note was originally created. Plan of care was discussed and agreed upon with the patient as specifically documented in the above note. An opportunity to ask questions with explanation was provided. Patient voiced understanding on all information reviewed and discussed. Physician Certification 2 Midnight Certification Type: Admission for Inpatient Services Order for Inpatient Services The services are ordered in accordance with Medicare regulations or non- Medicare payer requirements, as applicable. In the case of services not specified as inpatient-only, they are appropriately provided as inpatient services in accordance with the 2-midnight benchmark. Estimated LOS (days): 2 days is the estimated time the patient will need to remain in the hospital, assuming treatment plan goals are met and no additional complications. Post-Hospital Plan: Home Torres Regalado MD Jun 28, 2017 14:47
[2017-06-28] MEDS: SODIUM CHLORIDE 0.9% FLUSH 10 ML FLUSH IV FLUSH SCH ×2 (15:55→20:58)
[2017-06-28] MEDS ORDERED: EMTR1TAB4 PO (17:20)
[2017-06-28] MEDS ORDERED: [UNRECOGNIZED DRUG - OTHER] PO (17:20)
[2017-06-28] MEDS ORDERED: DARU1TAB2 PO (17:20)
[2017-06-28] MEDS: MELOXICAM 15 MG TAB PO SCH (18:16)
[2017-06-29 00:06] VITALS: PULSE 77
[2017-06-29] MEDS: ACETAMINOPHEN/HYDROcodone 325 MG/7.5 MG TAB PO PRN ×3 (02:49→15:29)
[2017-06-29] MEDS: PIPERACIL-TAZO 4.5 GM PREMIX 100 ML IV SCH ×2 (02:51→08:18)
[2017-06-29 04:11] VITALS: PULSE 78
[2017-06-29 05:05] VITALS: BP 128/67; PULSE 82; RESP 16; TEMP 98.2; O2SAT 98
[2017-06-29 08:00] VITALS: BP 111/65; PULSE 97; RESP 20; TEMP 97.8; O2SAT 100
[2017-06-29 08:05] LABS: AUTOMATED NEUTROPHIL # 1.1 TH/MM3 (1.8-7.7); BASOPHIL % 0.4 % (0.0-2.0); EOSINOPHIL # 0.1 TH/MM3 (0-0.4); EOSINOPHIL % 2.7 % (0.0-4.0); HEMATOCRIT 36.7 % (35.0-46.0); HEMOGLOBIN 12.4 GM/DL (11.6-15.3); LYMPH % 38.7 % (9.0-44.0); LYMPHOCYTE # 0.9 TH/MM3 (1.0-4.8); MEAN CELL VOLUME 98.9 FL (80.0-100.0); MEAN CORPUSCULAR HEMOGLOBIN 33.6 PG (27.0-34.0); MEAN CORPUSCULAR HGB CONC 33.9 % (32.0-36.0); MONO % 10.9 % (0.0-8.0); MONOCYTE # 0.2 TH/MM3 (0-0.9); NEUT % 47.3 % (16.0-70.0); PLATELET COUNT 144 TH/MM3 (150-450); RED BLOOD COUNT 3.71 MIL/MM3 (4.00-5.30); RED CELL DISTRIBUTION WIDTH 15.5 % (11.6-17.2); WHITE BLOOD COUNT 2.2 TH/MM3 (4.0-11.0)
[2017-06-29] MEDS: DABIGATRAN ETEXILATE 150 MG CAP PO SCH (08:17)
[2017-06-29] MEDS: DOCUSATE SODIUM 50 MG/SENNA 8.6 MG TAB PO SCH (08:17)
[2017-06-29] MEDS: DILTIAZEM-CD 180 MG CAP ER PO SCH (08:17)
[2017-06-29] MEDS: MELOXICAM 15 MG TAB PO SCH (08:17)
[2017-06-29] MEDS: PANTOPRAZOLE SOD 40 MG DELAYED RELEASE TAB PO SCH (08:18)
[2017-06-29] MEDS: SODIUM CHLORIDE 0.9% FLUSH 10 ML FLUSH IV FLUSH SCH (08:18)
[2017-06-29] MEDS: FLUoxetine HCL 20 MG CAP PO SCH (08:18)
[2017-06-29 08:33] LABS: BICARBONATE 22.8 MEQ/L (21.0-32.0); CALCIUM 8.2 MG/DL (8.5-10.1); CREATININE 0.62 MG/DL (0.50-1.00)
[2017-06-29] MEDS: ALPRAZolam 0.5 MG TAB PO PRN (09:10)
[2017-06-29] MEDS: ONDANSETRON HCL 4 MG/2 ML VIAL IVP PRN (09:11)
--- NOTE | 2017-06-29 09:44 | RADRPT ---
EXAM DATE/TIME: 06/29/2017 08:30 [place] COMPARISON: CT PULMONARY ANGIOGRAM, June 27, 2017, 11:32. CHEST SINGLE AP, August 28, 2016, 4:28. INDICATIONS : Evaluate for pneumonia. MEDICAL HISTORY : Hypertension. Carcinoma, lung. HIV. SURGICAL HISTORY : section. ENCOUNTER: Subsequent ACUITY: 2 days PAIN SCORE: 0/10 LOCATION: Bilateral chest FINDINGS: The cardiac silhouette is normal in transverse diameter. The left lung is free of acute parenchymal o pacity. There continues to be abnormality involving the superior segment of the right lower lobe whic h has not resolved since August 2016 but is smaller. Followup examination to insure clearing is recomm ended. Bronchoscopy could be performed for further evaluation if clinically indicated. CONCLUSION: Continued abnormality in the right lower lobe as described above. Followup examination to insure nathanael ring is recommended. Pavel Martinez MD on June 29, 2017 at 9:40 Board Certified Radiologist. This report was verified electronically.
[2017-06-29 12:00] VITALS: BP 127/80; PULSE 82; PULSE 85; RESP 20; TEMP 97.7; O2SAT 98
--- NOTE | 2017-06-29 12:29 | PD.ID.CON ---
History of Present Illness Service ID Consult Requested By Dr Jama Reason for Consult HIV PNA Primary Care Physician Juma Galindo MD Diagnoses: History of Present Illness 42 yo female with HIV disaese and luing CA known to me from her August 2016 hospitalization She is a pt of Dr Rees and was on HAART (Prezista, Genvoya), until 2 weeks ago when she was told to stop the Rx 2/2 virological failure. She has not yet started the new Rx, but told me that it willl be Prezcobix/ descovy and tivicay Her last CD4 was 162 3 mos ago with detectable VL In the interim she receieved XRT for her cancer tx, but not chemo or surgery She told me she in remission and is getting f/u CTs She presented to the hospital 2 days ago with R side back pain Denies fever, but endorses night sweats NO cough, no SOB CT showed consolidation in the right lower lobe with air bronchograms persist. afebrile WBC somewhat low blood clx negative @ 1 days, so is flu test pt was started on broad spectrum abx (zosyn, azithro) and iproved both clinically and radiologically She did gain weight since last presentation And she quit smoking Review of Systems Except as stated in HPI: all other systems reviewed are Neg Past Family Social History Allergies: Coded Allergies: No Known Allergies (Unverified , 06/27/17) Past Medical History HIV diagnosed in 1996 lung cancer sp XRT Past Surgical History 2 previous C-sections Active Ordered Medications Medications where reviewed in EMR Antibiotics Include: azithro zosyn Bactrim for PCP profilaxis Family History Mother: alive, ~60yo, HTN Father: alive, late 60s, prostate cancer Social History Tobacco: used to smoke8 cigarettes daily for many years. Now quit No ETOH. No Illicit Drugs. Physical Exam Vital Signs Vital Signs Date Time Temp Pulse Resp B/P (MAP) Pulse Ox O2 Delivery O2 Flow Rate FiO2 06/29/17 08:00 97.8 97 20 111/65 (80) 100 06/29/17 05:05 98.2 82 16 128/67 (87) 98 06/29/17 04:11 78 06/29/17 00:06 77 06/28/17 23:08 98.3 98 16 126/77 (93) 99 1/4/18 20:06 Room Air 06/28/17 19:52 98.2 86 16 136/83 (100) 98 06/28/17 19:47 85 06/28/17 17:21 Room Air 06/28/17 17:21 18 06/28/17 16:00 97.6 103 20 118/81 (93) 99 06/28/17 15:06 82 Physical Exam CONSTITUTIONAL/GENERAL: This is an adequately nourished patient, in no apparent distress. TUBES/LINES/DRAINS: SKIN: No jaundice, rashes, or lesions.Skin temperature appropriate. Not diaphoretic. HEAD: Atraumatic. Normocephalic. EYES: Pupils equal and round and reactive. Extraocular motions intact. No scleral icterus. No injection or drainage. Fundi not examined. ENT: Hearing grossly normal. Nose without bleeding or purulent drainage. Throat without visible erythema, exudates, masses, or lesions. NECK: Trachea midline. Supple, nontender. CARDIOVASCULAR: Regular rate and rhythm without murmurs, gallops, or rubs. No JVD. Peripheral pulses symmetric. RESPIRATORY/CHEST: Symmetric, unlabored respirations. Coarse BS to auscultation. Breath sounds equal bilaterally. No wheezes, rales, or rhonchi. GASTROINTESTINAL: Abdomen soft, non-tender, nondistended. No hepato-splenomegaly , or palpable masses. No guarding. Bowel sounds present. GENITOURINARY: Without palpable bladder distension. MUSCULOSKELETAL: Extremities without clubbing, cyanosis, or edema. No joint tenderness or effusion noted. No calf tenderness. No mottling or clubbing. LYMPHATICS: No palpable cervical or supraclavicular adenopathy. NEUROLOGICAL: Awake and alert. Motor and sensory grossly within normal limits. Follows commands. Cognitively sharp. Moves all extremities. PSYCHIATRIC: No obvious anxiety/depression. no apparent hallucinations or other psychotic thought process. Laboratory Laboratory Tests Test 06/29/17 07:47 White Blood Count 2.2 Red Blood Count 3.71 Hemoglobin 12.4 Hematocrit 36.7 Mean Corpuscular Volume 98.9 Mean Corpuscular Hemoglobin 33.6 Mean Corpuscular Hemoglobin Concent 33.9 Red Cell Distribution Width 15.5 Platelet Count 144 Mean Platelet Volume 8.0 Neutrophils (%) (Auto) 47.3 Lymphocytes (%) (Auto) 38.7 Monocytes (%) (Auto) 10.9 Eosinophils (%) (Auto) 2.7 Basophils (%) (Auto) 0.4 Neutrophils # (Auto) 1.1 Lymphocytes # (Auto) 0.9 Monocytes # (Auto) 0.2 Eosinophils # (Auto) 0.1 Basophils # (Auto) 0.0 CBC Comment AUTO DIFF Differential Comment AUTO DIFF CONFIRMED Blood Urea Nitrogen 9 Creatinine 0.62 Random Glucose 78 Calcium Level 8.2 Sodium Level 140 Potassium Level 3.8 Chloride Level 109 Carbon Dioxide Level 22.8 Anion Gap 8 Estimat Glomerular Filtration Rate 127 Date/Time Source Procedure Growth Status 06/27/17 10:45 Blood Peripheral Aerobic Blood Culture - Preliminary NO GROWTH IN 2 DAYS Resulted 06/27/17 10:45 Blood Peripheral Anaerobic Blood Culture - Preliminary NO GROWTH IN 2 DAYS Resulted 06/27/17 10:50 Nasal Washing Influenza Types A,B Antigen (MITRA) - Final NEGATIVE FOR FLU A AND B ANTIGEN.... Complete Result Diagram: 06/29/17 0747 06/29/17 0747 Imaging Last Impressions Chest X-Ray 06/29/17 0000 Signed Impressions: Service Date/Time: Thursday, June 29, 2017 08:30 - CONCLUSION: Continued abnormality in the right lower lobe as described above. Followup examination to insure clearing is recommended. Pavel Martinez MD CT Angiography 06/27/17 0000 Signed Impressions: Service Date/Time: Tuesday, June 27, 2017 11:32 - CONCLUSION: Improvement with less consolidation in the right lower lobe. Air bronchograms persist. Negative for central pulmonary emboli Findings in the right lower lobe have persisted since 08/25/16. Followup would be of benefit.. Ac Maguire MD FACR Assessment and Plan Assessment and Plan PNA with h/o lung cancer in the same lobe ? obstructive PNA HIV +, off HAART 2/2 virological failuire, awaiting to be started on new Rx - complete 5 days of azithro - change zosyn to augmentin and complete 7 days of total abx - no HAART as inpt; pt will need to follow with her HIV clinic to restart - cont Bactrim profilaxis Delmi De La Cruz MD Jun 29, 2017 12:29
[2017-06-29] MEDS ORDERED: AMOXICILLIN/CLAVULANATE K 500 MG TAB PO SCH (14:00)
--- NOTE | 2017-06-29 14:07 | HHI.FPPN ---
Subjective Remarks Pt seen and examined this morning. No acute events overnight. Pt reports feeling improved this morning. Reports improved back pain this morning. States her breathing has improved as well. She was in contact with her clinic and had a list of her new HIV medications that they were planning on starting. (Bang Gates MD, R2) Objective Vitals Vital Signs Date Time Temp Pulse Resp B/P (MAP) Pulse Ox O2 Delivery O2 Flow Rate FiO2 06/29/17 12:00 97.7 85 20 127/80 (96) 98 06/29/17 08:00 97.8 97 20 111/65 (80) 100 06/29/17 05:05 98.2 82 16 128/67 (87) 98 06/29/17 04:11 78 06/29/17 00:06 77 06/28/17 23:08 98.3 98 16 126/77 (93) 99 06/28/17 20:06 Room Air 06/28/17 19:52 98.2 86 16 136/83 (100) 98 06/28/17 19:47 85 06/28/17 17:21 Room Air 06/28/17 17:21 18 06/28/17 16:00 97.6 103 20 118/81 (93) 99 06/28/17 15:06 82 I/O 06/28/17 06/28/17 06/28/17 06/29/17 06/29/17 06/29/17 07:00 15:00 23:00 07:00 15:00 23:00 Intake Total 1300 ml 480 ml 350 ml 820 ml Output Total 1000 ml 600 ml Balance 300 ml 480 ml 350 ml 220 ml Intake Oral 1200 ml 480 ml 720 ml IV Total 100 ml 350 ml 100 ml Output Urine Total 1000 ml 600 ml # Voids 3 1 # Bowel Movements 0 0 0 (Bang Gates MD, R2) Result Diagram: 06/29/17 0747 06/29/17 0747 Imaging Last Impressions Chest X-Ray 06/29/17 0000 Signed Impressions: Service Date/Time: Thursday, June 29, 2017 08:30 - CONCLUSION: Continued abnormality in the right lower lobe as described above. Followup examination to insure clearing is recommended. Pavel Martinez MD CT Angiography 06/27/17 0000 Signed Impressions: Service Date/Time: Tuesday, June 27, 2017 11:32 - CONCLUSION: Improvement with less consolidation in the right lower lobe. Air bronchograms persist. Negative for central pulmonary emboli Findings in the right lower lobe have persisted since 08/25/16. Followup would be of benefit.. Ac Maguire MD FACR Objective Remarks GENERAL: sitting up in bed, NAD CARDIOVASCULAR: Regular rate and rhythm. RESPIRATORY: No accessory muscle use. Clear to auscultation. GASTROINTESTINAL: Abdomen soft, non-tender, nondistended. MUSCULOSKELETAL: Extremities without clubbing, cyanosis, or edema. NEUROLOGICAL: Awake and alert. No obvious cranial nerve deficits. Normal speech. PSYCHIATRIC: Appropriate mood and affect; insight and judgment normal. (Bang Gates MD, R2) A/P Assessment and Plan 42-year-old female with past history of anxiety, depression, HIV, admitted for pneumonia. Afebrile, leukocytosis however tachycardic up to 140s, respiratory rate in the mid 20s, states this is how it felt last time she had pneumonia. Discoid atelectasis in mid right lung field on chest x-ray. Discharge Planning Possibly tomorrow pending infectious workup (Bang Gates MD, R2) Problem List: (1) Pneumonia ICD Codes: J18.9 - Pneumonia, unspecified organism Status: Acute Plan: History of multiple pneumonias, HIV, discoid atelectasis in right lung field. Tachycardic, tachypneic and states this is how it felt last time she pneumonia. Has recently been in a hospital, must consider hospital-acquired pneumonia ID consulted-appreciate recs -Azithromycin 500 mg every 24 hours for 5 days -Zosyn 4.5 g --> Augmentin for 7 days -Bactrim prophylaxis -Acetaminophen 650 mg every 4 when necessary for fever (2) Sepsis ICD Codes: A41.9 - Sepsis, unspecified organism Status: Resolved Plan: Resolved Initially qualified for sepsis criteria. Tachycardia up to 147, tachypnea up to 25. No leukocytosis, afebrile. History of HIV. -Blood culture NGTD -Currently being treated for pneumonia above -Lactic acid 1.2, within normal limits -Observe for systemic features (3) Spasm of back muscles ICD Codes: M62.830 - Muscle spasm of back Status: Acute Plan: Improved with Mobic. -Continue mobic and protonix for GI protection -F/u outpatient (4) HIV (human immunodeficiency virus infection) ICD Codes: Z21 - Asymptomatic human immunodeficiency virus [HIV] infection status Status: Chronic Plan: Patient reports she currently has been off of her HAART therapy for the past 2 weeks. This was due to recently obtained new physician who is changing over her therapy. -Infectious disease consulted, appreciate recommendations. -Hold HAART until discharge (5) Anxiety with depression ICD Codes: F41.8 - Other specified anxiety disorders Status: Acute Plan: History of anxiety and depression -Continue home medication -Xanax 0.5 mg 2 times a day when necessary -Prozac 40 mg daily (6) Nutrition, metabolism, and development symptoms ICD Codes: R63.8 - Other symptoms and signs concerning food and fluid intake Status: Acute Plan: Fluids:Tolerating by mouth fluids Electrolytes:Monitor and correct as needed Nutrition:Full regular diet Prophylaxis:Currently on Pradaxa (Bang Gates MD, R2) Problem List: (1) Pneumonia ICD Codes: J18.9 - Pneumonia, unspecified organism Status: Acute Plan: History of multiple pneumonias, HIV, discoid atelectasis in right lung field. Tachycardic, tachypneic and states this is how it felt last time she pneumonia. Has recently been in a hospital, must consider hospital-acquired pneumonia ID consulted-appreciate recs -Azithromycin 500 mg every 24 hours for 5 days -Zosyn 4.5 g --> Augmentin for 7 days -Bactrim prophylaxis -Acetaminophen 650 mg every 4 when necessary for fever (2) Sepsis ICD Codes: A41.9 - Sepsis, unspecified organism Status: Resolved Plan: Resolved Initially qualified for sepsis criteria. Tachycardia up to 147, tachypnea up to 25. No leukocytosis, afebrile. History of HIV. -Blood culture NGTD -Currently being treated for pneumonia above -Lactic acid 1.2, within normal limits -Observe for systemic features (3) Spasm of back muscles ICD Codes: M62.830 - Muscle spasm of back Status: Acute Plan: Improved with Mobic. -Continue mobic and protonix for GI protection -F/u outpatient (4) HIV (human immunodeficiency virus infection) ICD Codes: Z21 - Asymptomatic human immunodeficiency virus [HIV] infection status Status: Chronic Plan: Patient reports she currently has been off of her HAART therapy for the past 2 weeks. This was due to recently obtained new physician who is changing over her therapy. -Infectious disease consulted, appreciate recommendations. -Hold HAART until discharge (5) Anxiety with depression ICD Codes: F41.8 - Other specified anxiety disorders Status: Acute Plan: History of anxiety and depression -Continue home medication -Xanax 0.5 mg 2 times a day when necessary -Prozac 40 mg daily (6) Nutrition, metabolism, and development symptoms ICD Codes: R63.8 - Other symptoms and signs concerning food and fluid intake Status: Acute Plan: Fluids:Tolerating by mouth fluids Electrolytes:Monitor and correct as needed Nutrition:Full regular diet Prophylaxis:Currently on Pradaxa See the residents documentation for details. I saw and evaluated the patient regarding the ely portions of this evaluation and agree with the residents findings and plans as written. Parts of this note were created using [employer] voice recognition software program. While efforts were made to correct any mistakes made by this software, some mistakes, errors, and omissions may remain in the final note that were not caught when the note was originally created. Plan of care was discussed and agreed upon with the patient as specifically documented in the above note. An opportunity to ask questions with explanation was provided. Patient voiced understanding on all information reviewed and discussed. (Torres Regalado MD) Bang Gates MD, R2 Jun 29, 2017 14:07 Torres Regalado MD Jun 30, 2017 10:10
--- NOTE | 2017-06-29 16:13 | HHI.DCPOC ---
Discharge Care Plan Diagnosis: (1) Pneumonia (2) HIV (human immunodeficiency virus infection) (3) Spasm of back muscles Goals to Promote Your Health * To prevent worsening of your condition and complications * To maintain your health at the optimal level Directions to Meet Your Goals Take your medications as prescribed Follow your dietary instruction Follow activity as directed Keep your appointments as scheduled Take your immunizations and boosters as scheduled If your symptoms worsen call your PCP, if no PCP go to Urgent Care Center or Emergency Room Smoking is Dangerous to Your Health. Avoid second hand smoke Call the 24-hour hour crisis hotline for domestic abuse at Bang Gates MD, R2 Jun 29, 2017 16:13
[2017-06-29] MEDS ORDERED: MELO15TA20 PO (16:19)
[2017-06-29] MEDS ORDERED: AZIT250T3 PO (16:19)
[2017-06-29] MEDS ORDERED: Amoxicil-Clavulanate PO (16:19)
--- NOTE | 2017-06-29 16:23 | HHI.DS ---
Discharge Summary Admission Date Jun 27, 2017 at 13:37 Discharge Date: Jun 29, 2017 Admitting Diagnosis chest pain, and HIV (1) Pneumonia Diagnosis: Principal Plan: History of multiple pneumonias, HIV, discoid atelectasis in right lung field. Tachycardic, tachypneic and states this is how it felt last time she pneumonia. Has recently been in a hospital, must consider hospital-acquired pneumonia ID consulted-appreciate recs -Azithromycin 500 mg every 24 hours for 5 days -Zosyn 4.5 g --> Augmentin for 7 days -Bactrim prophylaxis -Acetaminophen 650 mg every 4 when necessary for fever ICD Codes: J18.9 - Pneumonia, unspecified organism Status: Acute (2) Sepsis Diagnosis: Principal Plan: Resolved Initially qualified for sepsis criteria. Tachycardia up to 147, tachypnea up to 25. No leukocytosis, afebrile. History of HIV. -Blood culture NGTD -Currently being treated for pneumonia above -Lactic acid 1.2, within normal limits -Observe for systemic features ICD Codes: A41.9 - Sepsis, unspecified organism Status: Resolved (3) Spasm of back muscles Diagnosis: Secondary Plan: Improved with Mobic. -Continue mobic and protonix for GI protection -F/u outpatient ICD Codes: M62.830 - Muscle spasm of back Status: Acute (4) HIV (human immunodeficiency virus infection) Diagnosis: Secondary Plan: Patient reports she currently has been off of her HAART therapy for the past 2 weeks. This was due to recently obtained new physician who is changing over her therapy. -Infectious disease consulted, appreciate recommendations. -Hold HAART until discharge ICD Codes: Z21 - Asymptomatic human immunodeficiency virus [HIV] infection status Status: Chronic (5) Anxiety with depression Diagnosis: Secondary Plan: History of anxiety and depression -Continue home medication -Xanax 0.5 mg 2 times a day when necessary -Prozac 40 mg daily ICD Codes: F41.8 - Other specified anxiety disorders Status: Acute (6) Nutrition, metabolism, and development symptoms Diagnosis: Secondary Plan: Fluids:Tolerating by mouth fluids Electrolytes:Monitor and correct as needed Nutrition:Full regular diet Prophylaxis:Currently on Pradaxa ICD Codes: R63.8 - Other symptoms and signs concerning food and fluid intake Status: Acute Consultants Infectious Disease Brief History Patient seen and examined at bedside today. She states she's doing better. Symptoms of an improving. Continues to have some discomfort over the right flank. Describes having similar symptoms with pneumonia in the past. States that she was evaluated for meningitis at [facility], which states was negative. Denies any complaints of chest pain, shortness of breath, or lightheadedness. He has been on HAART therapy in the past, but states she's been off the medication for several weeks. Denies any fevers or chills during the night. CBC/BMP: 06/29/17 0747 06/29/17 0747 Significant Findings Laboratory Tests Test 06/27/17 10:40 06/28/17 03:48 06/29/17 07:47 06/29/17 12:40 Mean Corpuscular Hemoglobin 34.5 PG (27.0-34.0) 34.5 PG (27.0-34.0) Basophils (%) (Auto) 6.8 % (0.0-2.0) Lymphocytes # (Auto) 0.9 TH/MM3 (1.0-4.8) 0.9 TH/MM3 (1.0-4.8) Basophils # (Auto) 0.3 TH/MM3 (0-0.2) Prothrombin Time 12.0 SEC (9.8-11.6) Total Protein 8.6 GM/DL (6.4-8.2) Potassium Level 3.4 MEQ/L (3.5-5.1) Chloride Level 108 MEQ/L (98-107) 109 MEQ/L (98-107) 109 MEQ/L (98-107) Troponin I LESS THAN 0.02 NG/ML White Blood Count 3.2 TH/MM3 (4.0-11.0) 2.2 TH/MM3 (4.0-11.0) Red Blood Count 3.64 MIL/MM3 (4.00-5.30) 3.71 MIL/MM3 (4.00-5.30) Platelet Count 142 TH/MM3 (150-450) 144 TH/MM3 (150-450) Blood Urea Nitrogen 6 MG/DL (7-18) Random Glucose 70 MG/DL (74-106) Monocytes (%) (Auto) 10.9 % (0.0-8.0) Neutrophils # (Auto) 1.1 TH/MM3 (1.8-7.7) Calcium Level 8.2 MG/DL (8.5-10.1) Imaging Last Impressions Chest X-Ray 06/29/17 0000 Signed Impressions: Service Date/Time: Thursday, June 29, 2017 08:30 - CONCLUSION: Continued abnormality in the right lower lobe as described above. Followup examination to insure clearing is recommended. Pavel Martinez MD CT Angiography 06/27/17 0000 Signed Impressions: Service Date/Time: Tuesday, June 27, 2017 11:32 - CONCLUSION: Improvement with less consolidation in the right lower lobe. Air bronchograms persist. Negative for central pulmonary emboli Findings in the right lower lobe have persisted since 08/25/16. Followup would be of benefit.. Ac Maguire MD FACR PE at Discharge GENERAL: sitting up in bed, NAD CARDIOVASCULAR: Regular rate and rhythm. RESPIRATORY: No accessory muscle use. Clear to auscultation. GASTROINTESTINAL: Abdomen soft, non-tender, nondistended. MUSCULOSKELETAL: Extremities without clubbing, cyanosis, or edema. NEUROLOGICAL: Awake and alert. No obvious cranial nerve deficits. Normal speech. PSYCHIATRIC: Appropriate mood and affect; insight and judgment normal. Hospital Course 42 y/o female with history of HIV presented to ED with worsening shortness of breath. CXR showed possible pneumonia and patient also met sepsis criteria with tachycardia and tachypnea. Pt was started on azithromycin and Zosyn. She was just changed on her HAART medications, those were held and infectious disease was consulted. Pt remained stable and her breathing improved. Repeat CXR was performed, which remained stable. Infectious disease recommended sending her home on oral augmentin and azithromycin to complete antibiotic course, including Bactrim for prophylaxis. Pt continued on home anxiety medications. Recommended to follow-up on chest xray imaging on outpatient to see resolution. Pt discharged in stable condition with follow-up with PCP and ID doctor. Pt Condition on Discharge: Stable Discharge Disposition: Discharge Home Discharge Instructions DIET: Follow Instructions for: As Tolerated, No Restrictions Activities you can perform: Regular-No Restrictions Follow up Referrals: Infectious Disease - 1 Week PCP Follow-up - 1 Week New Medications: Azithromycin (Azithromycin) 250 Mg Tab 250 MG PO DAILY, #4 TAB Meloxicam (Meloxicam) 15 Mg Tab 15 MG PO DAILY, #30 TAB [Amoxicil-Clavulanate] () 500 MG TAB 500 MG PO Q8HR, #21 TAB Continued Medications: Diltiazem CD 24 HR (Cardizem CD 24 HR) 180 Mg Caper 180 MG PO DAILY, #30 CAP Omeprazole (Omeprazole) 40 Mg Cap 40 MG PO DAILY, #30 CAP 0 Refills [Tibicay] () PO DAILY, #1 Discontinued Medications: Darunavir (Prezista) 800 Mg Tab 800 MG PO DAILY for Mgmt Viral Infection, #30 TAB 0 Refills Darunavir-Cobicistat (Prezcobix) 800-150 Mg Tab 1 TAB PO DAILY for Mgmt Viral Infection, #30 TAB 0 Refills Pelqcsylgzcl-Olheuovfps-Csiykhurumid-Tenofvir (Genvoya) [id number] Mg Tab 1 TAB PO DAILY for Mgmt Viral Infection, #30 TAB 0 Refills Emtricitabine-Tenofovir Alafenamide (Descovy) 200-25 mg Tab 1 TAB PO DAILY for Mgmt Viral Infection, #30 TAB 0 Refills Bang Gates MD, R2 Jun 29, 2017 16:23
[2017-06-29 16:25] VITALS: BP 114/70; PULSE 92; RESP 20; TEMP 97.5; O2SAT 99
[2017-06-29] MEDS ORDERED: BACT400T PO (16:30)
--- NOTE | 2017-06-30 00:10 | EKG ---
Date Performed: 06/27/2017 Time Performed: 10:07:02 PTAGE: 42 years EKG: SINUS TACHYCARDIA ABNORMAL RHYTHM ECG NO PREVIOUS TRACING DOCTOR: Lisa Mcclure Interpretating Date/Time 06/30/2017 00:09:23
[2017-06-30] MEDS ORDERED: AZITHROMYCIN 250 MG TAB PO SCH (09:00)
[2017-06-30] MEDS ORDERED: DOLU1TAB4 PO (12:00)
== END 2017-06-29 17:17 | disposition home or self-care (01) | DRG 871 ==
LOC: NEPC 10:00 → NEDA 13:37 → N04A 15:13
PROVIDERS: ADMIT Family Medicine; ATTEND Family Medicine
DX: A41.9 Sepsis, unspecified organism (principal); J18.9 Pneumonia, unspecified organism; J98.11 Atelectasis; F41.9 Anxiety disorder, unspecified; F32.9 Major depressive disorder, single episode, unspecified; I10 Essential (primary) hypertension; M62.830 Muscle spasm of back; R06.82 Tachypnea, not elsewhere classified; R00.0 Tachycardia, unspecified; Z21 Asymptomatic human immunodeficiency virus [HIV] infection status; Z87.891 Personal history of nicotine dependence; Z85.118 Personal history of other malignant neoplasm of bronchus and lung; Z87.01 Personal history of pneumonia (recurrent); Z92.3 Personal history of irradiation
CPT/HCPCS: 71045; 71046; 71275; 80048; 80053; 83605; 83690; 84484; 84702; 85025; 85027; 85610; 85730; 86355; 86357; 86359; 86360; 87040; 87804; 93005; 96360; J0456; J0696; J2405; J2543; J7030; J7050; Q9967

== ENCOUNTER 2017-07-21 12:30 | Emergency (ER) | payer MEDICAID ==
[~2017-07-21] VITALS: Ht 167.6 cm; Wt 70.0 kg
[~2017-07-21 12:30] MED LIST changes: -ALPR.5 PO; +AZIT250T3 PO; +Amoxicil-Clavulanate PO; +BACT400T PO; -CLIN150 PO; -DARU800T2 PO; +DOLU1TAB4 PO; -ELVI1TAB3 PO; -FLUO40CA PO; +MELO15TA20 PO; +OMEP40CA2 PO; -PANT40TA3 PO; -PRED20 PO
[2017-07-21 12:33] VITALS: BP 144/94; PULSE 102; RESP 22; TEMP 98.2; O2SAT 96
[2017-07-21] MEDS ORDERED: SODIUM CHLOR 0.9% 1000 ML INJ 1,000 ML IV ONE (12:45)
--- NOTE | 2017-07-21 12:53 | PD ---
HPI . Cough Chief Complaint: Respiratory Symptoms Time Seen by Provider: 12:39 Travel History International Travel<30 days: No Contact w/Intl Traveler<30days: No Traveled to known affect area: No History of Present Illness HPI This is a patient who is HIV positive who was recently treated in the hospital for pneumonia who presents complaining with cough and right sided chest pain for the last 3 days. She states that she did not have a significant cough when she had pneumonia. The chest pain is caused by coughing and breathing. She rates at 6/10. It has been constant for the last 3 days. She has had some subjective fevers and chills. Patient reports that she is compliant with all of her medications. The patient was treated with Zosyn which was changed to Augmentin prior to discharge. She was also treated with Zithromax and Bactrim. She was hospitalized 06/27-06/29. PFSH Past Medical History Hx Anticoagulant Therapy: Yes (PRADAXA) Asthma: No Autoimmune Disease: No Anxiety: Yes Depression: Yes Heart Rhythm Problems: No Cancer: Yes (LUNG) Cardiovascular Problems: Yes High Cholesterol: No Chemotherapy: No Chest Pain: No Congestive Heart Failure: No COPD: No Diabetes: No Endocrine: No Genitourinary: No Hypertension: Yes Immune Disorder: Yes (HIV) Musculoskeletal: No Neurologic: No Psychiatric: Yes Reproductive: Yes (FIBROIDS AND CYSTS ON OVARIES) Respiratory: Yes (pneumonia one month ago, right lower lobe lung mass) Radiation Therapy: Yes (5 DAYS) Sleep Apnea: No Thyroid Disease: No ?: Not Menopausal: Yes Past Surgical History Abdominal Surgery: No Cardiac Surgery: No Section: Yes (x2) Ear Surgery: No Endocrine Surgery: No Eye Surgery: No Genitourinary Surgery: No Gynecologic Surgery: Yes () Oral Surgery: No Thoracic Surgery: No Social History Alcohol Use: No Tobacco Use: Yes (QUIT 2 MONTHS AGO ) Substance Use: No Allergies-Medications (Allergen,Severity, Reaction): Coded Allergies: No Known Allergies (Unverified , 07/21/17) Reported Meds & Prescriptions Reported Meds & Active Scripts Active Bactrim (Sulfamethoxazole-Trimethoprim) 400-80 Mg Tab 1 Tab PO DAILY [Amoxicil-Clavulanate] 500 MG Tab 500 Mg PO Q8HR Azithromycin 250 Mg Tab 250 Mg PO DAILY Meloxicam 15 Mg Tab 15 Mg PO DAILY Cardizem CD 24 HR (Diltiazem CD 24 HR) 180 Mg Caper 180 Mg PO DAILY Reported Tivicay (Dolutegravir Sodium) Unknown Strength Tab 1 Tab PO DAILY Omeprazole 40 Mg Cap 40 Mg PO DAILY Review of Systems Except as stated in HPI: all other systems reviewed are Neg General / Constitutional: Positive: Fever, Chills Cardiovascular: Positive: Chest Pain or Discomfort Respiratory: Positive: Cough Physical Exam Narrative GENERAL: Awake and alert. She looks uncomfortable. SKIN: Warm and dry. Good color and turgor. HEAD: Normocephalic/atraumatic. EYES: Pupils are equal. Extraocular movements are intact. NECK: Normal range of motion. CARDIOVASCULAR: Regular rate and rhythm. Heart rate is about 100. RESPIRATORY: Nonlabored respirations. Lungs are clear with full air movement throughout. MUSCULOSKELETAL: Atraumatic. NEUROLOGICAL: Nonfocal. PSYCHIATRIC: Appropriate mood and affect. Data Data Last Documented VS Vital Signs Date Time Temp Pulse Resp B/P (MAP) Pulse Ox O2 Delivery O2 Flow Rate FiO2 07/21/17 12:33 98.2 102 22 144/94 (111) 96 Orders Orders Sepsis Workup Initiated (07/21/17 ) Complete Blood Count With Diff (07/21/17 12:42) Comprehensive Metabolic Panel (07/21/17 12:42) Lactic Acid Sepsis Protocol (07/21/17 12:42) Urinalysis - C+S If Indicated (07/21/17 12:42) Blood Culture (07/21/17 12:42) Chest, Single Ap (07/21/17 12:42) Iv Access Insert/Monitor (07/21/17 12:42) Sodium Chlor 0.9% 1000 Ml Inj (Ns 1000 M (07/21/17 12:45) Morphine Inj (Morphine Inj) (07/21/17 13:00) Ondansetron Inj (Zofran Inj) (07/21/17 13:00) Labs Laboratory Tests Test 07/21/17 13:00 White Blood Count 8.7 TH/MM3 Red Blood Count 4.20 MIL/MM3 Hemoglobin 14.6 GM/DL Hematocrit 41.3 % Mean Corpuscular Volume 98.4 FL Mean Corpuscular Hemoglobin 34.9 PG Mean Corpuscular Hemoglobin Concent 35.4 % Red Cell Distribution Width 16.0 % Platelet Count 272 TH/MM3 Mean Platelet Volume 7.9 FL Neutrophils (%) (Auto) 68.5 % Lymphocytes (%) (Auto) 22.3 % Monocytes (%) (Auto) 8.0 % Eosinophils (%) (Auto) 0.6 % Basophils (%) (Auto) 0.6 % Neutrophils # (Auto) 6.0 TH/MM3 Lymphocytes # (Auto) 2.0 TH/MM3 Monocytes # (Auto) 0.7 TH/MM3 Eosinophils # (Auto) 0.1 TH/MM3 Basophils # (Auto) 0.1 TH/MM3 CBC Comment AUTO DIFF Differential Total Cells Counted 100 Neutrophils % (Manual) 68 % Band Neutrophils % 7 % Lymphocytes % 14 % Monocytes % 9 % Neutrophils # (Manual) 6.7 TH/MM3 Myelocytes 2 % Differential Comment FINAL DIFF MANUAL Platelet Estimate NORMAL Platelet Morphology Comment NORMAL Polychromasia 2.6 % Urine Color YELLOW Urine Turbidity CLEAR Urine pH 7.0 Urine Specific Lovell 1.024 Urine Protein TRACE mg/dL Urine Glucose (UA) NEG mg/dL Urine Ketones NEG mg/dL Urine Occult Blood NEG Urine Nitrite NEG Urine Bilirubin NEG Urine Urobilinogen 2.0 MG/DL Urine Leukocyte Esterase TRACE Urine WBC LESS THAN 1 /hpf Urine Mucus FEW /lpf Microscopic Urinalysis Comment CATH-CULT NOT IND Blood Urea Nitrogen 14 MG/DL Creatinine 0.71 MG/DL Random Glucose 103 MG/DL Total Protein 7.7 GM/DL Albumin 3.4 GM/DL Calcium Level 9.1 MG/DL Alkaline Phosphatase 109 U/L Aspartate Amino Transf (AST/SGOT) 16 U/L Alanine Aminotransferase (ALT/SGPT) 26 U/L Total Bilirubin 0.2 MG/DL Sodium Level 136 MEQ/L Potassium Level 3.8 MEQ/L Chloride Level 104 MEQ/L Carbon Dioxide Level 25.3 MEQ/L Anion Gap 7 MEQ/L Estimat Glomerular Filtration Rate 109 ML/MIN Lactic Acid Level 1.4 mmol/L MDM Medical Decision Making Medical Screen Exam Complete: Yes Emergency Medical Condition: Yes Differential Diagnosis Differential diagnosis includes but is not limited to viral respiratory illness , bronchitis, pneumonia, allergies, CHF, asthma/COPD. Narrative Course This patient presents with a chief complaint of cough and pleurisy. Onset was 3 days ago. She is HIV positive and has had recent pneumonia. Septic workup is in process. CBC & BMP Diagram 07/21/17 13:00 Total Protein 7.7, Albumin 3.4, Calcium Level 9.1, Alkaline Phosphatase 109, Aspartate Amino Transf (AST/SGOT) 16, Alanine Aminotransferase (ALT/SGPT) 26, Total Bilirubin 0.2 LA 1.4 UA negative Last Impressions Chest X-Ray 07/21/17 1242 Signed Impressions: Service Date/Time: Friday, July 21, 2017 13:03 - CONCLUSION: No change in atelectasis or scarring in the right midlung. No other acute cardiopulmonary disease identified. Cristi Acosta MD This patient is not septic. She does not have pneumonia. She is stable for discharge to home. Sepsis Criteria SIRS Criteria (2 or more): Heart rate over 90, RR > 20 or PaCO2 < 32 Criteria Outcome: Meets SIRS criteria Diagnosis Primary Impression: Pleurisy Patient Instructions: General Instructions, Pleurisy (DC) Med/Other Pt SpecificInfo: Prescription(s) given Scripts Acetaminophen-Codeine (Tylenol-Codeine #3) 300-30 mg Tab 1 TAB PO Q4H Y for PAIN, #12 TAB 0 Refills Prov: Eva Wilkerson MD 07/21/17 Nabumetone (Nabumetone) 500 Mg Tab 500 MG PO BID for Pain-Inflammation, #60 TAB 0 Refills Prov: Eva Wilkerson MD 07/21/17 Disposition: 01 DISCHARGE HOME Condition: Stable Eva Wilkerson MD Jul 21, 2017 12:53
[2017-07-21] MEDS ORDERED: ONDANSETRON HCL 4 MG/2 ML VIAL IV PUSH ONE (13:00)
[2017-07-21] MEDS ORDERED: MORPHINE SULFATE 2 MG/ML INJ IV PUSH ONE (13:00)
[2017-07-21 13:19] LABS: BASOPHIL # 0.1 TH/MM3 (0-0.2); BASOPHIL % 0.6 % (0.0-2.0); EOSINOPHIL # 0.1 TH/MM3 (0-0.4); EOSINOPHIL % 0.6 % (0.0-4.0); HEMATOCRIT 41.3 % (35.0-46.0); HEMOGLOBIN 14.6 GM/DL (11.6-15.3); LYMPH % 22.3 % (9.0-44.0); MEAN CELL VOLUME 98.4 FL (80.0-100.0); MEAN CORPUSCULAR HEMOGLOBIN 34.9 PG (27.0-34.0); MEAN CORPUSCULAR HGB CONC 35.4 % (32.0-36.0); MEAN PLATELET VOLUME 7.9 FL (7.0-11.0); MONOCYTE # 0.7 TH/MM3 (0-0.9); NEUT % 68.5 % (16.0-70.0); PLATELET COUNT 272 TH/MM3 (150-450); WHITE BLOOD COUNT 8.7 TH/MM3 (4.0-11.0)
[2017-07-21 13:35] LABS: BILIRUBIN, URINE NEG (NEG); BLOOD, URINE NEG (NEG); GLUCOSE,URINE NEG (NEG); KETONE, URINE NEG (NEG); MUCUS URINE FEW /lpf (OCC); NITRITE,URINE NEG (NEG); URINE COLOR YELLOW (YELLW/STRAW); URINE LEUKOCYTE ESTERASE TRACE (NEG)
--- NOTE | 2017-07-21 13:41 | RADRPT ---
EXAM DATE/TIME: 07/21/2017 13:03 [place] COMPARISON: CHEST SINGLE AP, June 27, 2017, 10:44. INDICATIONS : Cough. Evaluate for pneumonia. Shortness of breath. MEDICAL HISTORY : Carcinoma, lung. SURGICAL HISTORY : None. ENCOUNTER: Initial ACUITY: 1 month PAIN SCORE: 0/10 LOCATION: Bilateral chest FINDINGS: Single AP view of the chest. Linear opacity in the right midlung zone unchanged. Lungs otherwise nathanael r. No evidence of pleural effusion or pneumothorax. Cardio mediastinal silhouette within normal limit s. CONCLUSION: No change in atelectasis or scarring in the right midlung. No other acute cardiopulmonary disease arpit ntified. Cristi Acosta MD on July 21, 2017 at 13:38 Board Certified Radiologist. This report was verified electronically.
[2017-07-21 13:46] LABS: BANDS 7 % (0-6); LYMPHOCYTES 14 % (9-44); MONOCYTES 9 % (0-8); MYELOCYTES 2 % (0-0); NEUTROPHIL # MANUAL DIFF 6.7 TH/MM3 (1.8-7.7); POLYS (SEG NEUTROPHILS) 68 % (16-70)
[2017-07-21 13:47] LABS: POLYCHROMASIA 2.6 % (0.0-1.9)
[2017-07-21 13:49] LABS: ALBUMIN 3.4 GM/DL (3.4-5.0); AST (GOT) 16 U/L (15-37); BICARBONATE 25.3 MEQ/L (21.0-32.0); BLOOD UREA NITROGEN 14 MG/DL (7-18); CALCIUM 9.1 MG/DL (8.5-10.1); CHLORIDE 104 MEQ/L (98-107); CREATININE 0.71 MG/DL (0.50-1.00); GLOMERULAR FILTRATION RATE 109 ML/MIN (>89); GLUCOSE,RANDOM 103 MG/DL (74-106); SODIUM (NA) 136 MEQ/L (136-145)
[2017-07-21 13:50] LABS: ALT (GPT) 26 U/L (10-53)
[2017-07-21 13:53] LABS: ALKALINE PHOSPHATASE 109 U/L (45-117); TOTAL BILIRUBIN ADULT 0.2 MG/DL (0.2-1.0); TOTAL PROTEIN 7.7 GM/DL (6.4-8.2)
[2017-07-21] MEDS ORDERED: TYLETAB34 PO (14:16)
[2017-07-21] MEDS ORDERED: NABU1TAB37 PO (14:16)
== END 2017-07-21 14:37 | disposition home or self-care (01) ==
LOC: NEPD 12:30
DX: B20 Human immunodeficiency virus [HIV] disease (principal); R09.1 Pleurisy; Z87.891 Personal history of nicotine dependence
CPT/HCPCS: 71045; 80053; 81001; 83605; 85007; 85027; 87040; 96361; 96374; 96375; 99284; J2270; J2405; J7030

== ENCOUNTER 2017-08-27 10:05 | Emergency (ER) | payer MEDICAID ==
[~2017-08-27] VITALS: Ht 167.6 cm; Wt 69.0 kg
[~2017-08-27 10:05] MED LIST changes: +AMOX500T PO; -MELO15TA20 PO; +NABU1TAB37 PO; +TYLETAB34 PO; +ULTR50TA PO
[2017-08-27 10:32] VITALS: BP 165/104; PULSE 111; RESP 22; TEMP 98.2; O2SAT 98
[2017-08-27] MEDS ORDERED: SODIUM CHLORIDE 0.9% FLUSH 10 ML FLUSH IV FLUSH PRN (11:00)
--- NOTE | 2017-08-27 11:02 | PD ---
HPI Chief Complaint: Respiratory Symptoms Time Seen by Provider: 10:40 Travel History International Travel<30 days: No Contact w/Intl Traveler<30days: No Traveled to known affect area: No History of Present Illness HPI 42-year-old female presents to the emergency department with complaint of sneezing, cough and noises in her left lung 4 days. Describes the noises as "rattling." She has history of lung cancer, pneumonia, and pleurisy to her right lower lung. The pleurisy has been going on for about a month and she is continuing to have pain. Reports pain when she inhales and exhales; this has been unchanged for the past month. She has a CT scan of her chest scheduled for this . Her c wpf developer is Dr. Haynes. She reports being short of breath but nothing more than her normal shortness of breath. Denies chest pain. Denies fever, vomiting. Denies ear pain, sore throat. Has tried taking TheraFlu for symptom management. Has also taken Percocet which does help her pleurisy pain. Her oncologist is Dr. Colmenares. She says she is currently in remission. Denies current radiation or chemotherapy. Has history of aortic thrombus and takes Pradaxa. Denies hemoptysis, hormone replacement therapy, recent surgery or travel, leg edema. Primary care provider is Dr. Fonseca. Allergies to codeine. History of hypertension, HIV, lung cancer, pneumonia, pleurisy. Has no other medical complaints. No other modifying factors or associated signs and symptoms. PFSH Past Medical History Hx Anticoagulant Therapy: Yes (pradaxa) Asthma: No Autoimmune Disease: No Anxiety: Yes Depression: Yes Heart Rhythm Problems: No Cancer: Yes (LUNG) Cardiovascular Problems: Yes High Cholesterol: No Chemotherapy: No Chest Pain: No Congestive Heart Failure: No COPD: No Diabetes: No Endocrine: No Genitourinary: No Hypertension: Yes Immune Disorder: Yes (HIV) Musculoskeletal: No Neurologic: No Psychiatric: Yes Reproductive: Yes (FIBROIDS AND CYSTS ON OVARIES) Respiratory: Yes (pneumonia one month ago, right lower lobe lung mass) Radiation Therapy: Yes (5 DAYS) Sleep Apnea: No Thyroid Disease: No Menopausal: Yes Past Surgical History Abdominal Surgery: No Cardiac Surgery: No Section: Yes (x2) Ear Surgery: No Endocrine Surgery: No Eye Surgery: No Genitourinary Surgery: No Gynecologic Surgery: Yes () Oral Surgery: No Thoracic Surgery: No Social History Alcohol Use: No Tobacco Use: Yes (QUIT 2 MONTHS AGO ) Substance Use: No Allergies-Medications (Allergen,Severity, Reaction): Coded Allergies: No Known Allergies (Verified Allergy, Unknown, 08/27/17) Reported Meds & Prescriptions Reported Meds & Active Scripts Active Bolton (Hydrocodone-Acetaminophen) 5 Mg-325 Mg Tab 1 Tab PO Q4H PRN Tylenol-Codeine #3 (Acetaminophen-Codeine) 300-30 mg Tab 1 Tab PO Q4H PRN Nabumetone 500 Mg Tab 500 Mg PO BID Bactrim (Sulfamethoxazole-Trimethoprim) 400-80 Mg Tab 1 Tab PO DAILY [Amoxicil-Clavulanate] 500 MG Tab 500 Mg PO Q8HR Azithromycin 250 Mg Tab 250 Mg PO DAILY Cardizem CD 24 HR (Diltiazem CD 24 HR) 180 Mg Caper 180 Mg PO DAILY Ultram (Tramadol HCl) 50 Mg Tab 1-2 Tabs PO Q6HPRN Amoxicillin 500 Mg Cap 500 Mg PO TID Reported Tivicay (Dolutegravir Sodium) Unknown Strength Tab 1 Tab PO DAILY Omeprazole 40 Mg Cap 40 Mg PO DAILY Review of Systems Except as stated in HPI: all other systems reviewed are Neg Physical Exam Narrative GENERAL: Well-nourished, well-developed black female patient, in no acute distress; afebrile, nontoxic-appearing; tearful and crying SKIN: Warm and dry. HEAD: Atraumatic. Normocephalic. EYES: Pupils equal and round. No scleral icterus. No injection or drainage. ENT: Mucosa pink and moist. No erythema or exudates. No uvular edema. No uvular , palatal, or tonsillar deviation. Airway patent. Nares without nasal blood, purulent drainage or septal hematoma. EARS: Bilateral pinnae and external canals appear within normal limits. Bilateral tympanic membranes without erythema, dullness or perforation. NECK: Trachea midline. No lymphadenopathy. CARDIOVASCULAR: Regular rate and rhythm. No murmur appreciated. RESPIRATORY: No accessory muscle use. Lungs with course breath sounds in bilateral bases; left worse than right. Breath sounds equal bilaterally. No retractions or tachypnea. No Audible wheezing noted. GASTROINTESTINAL: Abdomen soft, non-tender, nondistended. Hepatic and splenic margins not palpable. Bowel sounds are active 4 quadrants. MUSCULOSKELETAL: No obvious deformities. No clubbing. No cyanosis. No edema. NEUROLOGICAL: Awake and alert. Oriented 3. No obvious cranial nerve deficits. Motor grossly within normal limits. Normal speech. Moves all extremities. 5/5 strength to all extremities. PSYCHIATRIC: Appropriate mood and affect; insight and judgment normal. Data Data Last Documented VS Vital Signs Date Time Temp Pulse Resp B/P (MAP) Pulse Ox O2 Delivery O2 Flow Rate FiO2 08/27/17 13:30 08/27/17 11:29 88 16 100 Room Air 08/27/17 10:32 98.2 Orders Orders Oximetry (08/27/17 10:50) Chest, Single Ap (08/27/17 10:50) Basic Metabolic Panel (Bmp) (08/27/17 10:55) Complete Blood Count With Diff (08/27/17 10:55) Iv Access Insert/Monitor (08/27/17 10:55) Sodium Chloride 0.9% Flush (Ns Flush) (08/27/17 11:00) Acetamin-Hydrocod 325-5 Mg (Bolton 5-325 (08/27/17 11:15) Resp Incentive Spirometry (08/27/17 ) Ed Discharge Order (08/27/17 13:14) Labs Laboratory Tests Test 08/27/17 11:20 White Blood Count 6.4 TH/MM3 Red Blood Count 3.70 MIL/MM3 Hemoglobin 13.0 GM/DL Hematocrit 37.0 % Mean Corpuscular Volume 100.0 FL Mean Corpuscular Hemoglobin 35.0 PG Mean Corpuscular Hemoglobin Concent 35.0 % Red Cell Distribution Width 16.0 % Platelet Count 238 TH/MM3 Mean Platelet Volume 8.0 FL Neutrophils (%) (Auto) 75.6 % Lymphocytes (%) (Auto) 18.1 % Monocytes (%) (Auto) 4.5 % Eosinophils (%) (Auto) 1.4 % Basophils (%) (Auto) 0.4 % Neutrophils # (Auto) 4.8 TH/MM3 Lymphocytes # (Auto) 1.2 TH/MM3 Monocytes # (Auto) 0.3 TH/MM3 Eosinophils # (Auto) 0.1 TH/MM3 Basophils # (Auto) 0.0 TH/MM3 CBC Comment DIFF FINAL Differential Comment Blood Urea Nitrogen 12 MG/DL Creatinine 0.64 MG/DL Random Glucose 79 MG/DL Calcium Level 8.8 MG/DL Sodium Level 141 MEQ/L Potassium Level 3.7 MEQ/L Chloride Level 112 MEQ/L Carbon Dioxide Level 22.2 MEQ/L Anion Gap 7 MEQ/L Estimat Glomerular Filtration Rate 123 ML/MIN MDM Medical Decision Making Medical Screen Exam Complete: Yes Emergency Medical Condition: Yes Medical Record Reviewed: Yes Differential Diagnosis Effusion, pneumonia, viral illness, bronchitis, pleurisy Narrative Course 42-year-old female with history of lung cancer, pneumonia, pleurisy and HIV with abnormal lung sounds in bilateral bases, left worse than right. She has been experiencing right-sided lower lung pain with respirations since being discharged from the hospital about a month ago from pneumonia and is currently being followed outpatient for that pain. She has a CT chest scheduled on . Patient is in no acute distress. Skin saturation is 98% on room air. I discussed the patient with Dr. Velez and he agrees my plan of care. CBC, BMP, chest x-ray, Bolton ordered. 1205: Chest x-ray concluded: Stable scarring within the right midlung; No acute cardiopulmonary disease. 1309: CBC, BMP unremarkable. Discussed lab and radiology findings with Dr. Velez and he agrees with discharge and continued outpatient follow-up. Instructed patient to follow up on with CT scan as scheduled. Instructed patient to follow up with c wpf developer. Patient says she is out of her pain medications. Bolton prescribed for home. Patient given an incentive spirometer for deep breathing exercises. Instructed patient to follow up with primary care provider. Patient verbalizes understanding and agreement with treatment plan. Patient is medically cleared and stable for discharge. Discussed reasons to return to the emergency department. Patient agrees with treatment plan. The patients vital signs are stable and the patient is stable for outpatient follow-up and treatment. Patient discharged home, stable and in no acute distress. Diagnosis Primary Impression: Abnormal lung sounds Additional Impression: Painful respiration Referrals: Primary Care Physician Site Manager Patient Instructions: General Instructions, How to Use an Incentive Spirometer (ED), Pleurisy (ED) Additional Instructions: Bolton as prescribed and as needed for pain Follow-up with c wpf developer Follow-up for CT scan as scheduled on Incentive spirometer every 2 hours for deep breathing exercises Follow-up with primary care provider Return to the emergency department immediately with worsening of symptoms Med/Other Pt SpecificInfo: Prescription(s) given Scripts Hydrocodone-Acetaminophen (Bolton) 5 Mg-325 Mg Tab 1 TAB PO Q4H Y for PAIN, #10 TAB 0 Refills Prov: Tashia Rivera 08/27/17 Disposition: 01 DISCHARGE HOME Condition: Stable Tashia Rivera Aug 27, 2017 11:02
[2017-08-27] MEDS ORDERED: ACETAMINOPHEN/HYDROcodone 325 MG/5 MG TAB PO ONE (11:15)
[2017-08-27 11:29] VITALS: PULSE 88; RESP 16; O2SAT 100
--- NOTE | 2017-08-27 11:29 | RADRPT ---
EXAM DATE/TIME: 08/27/2017 11:04 [facility] COMPARISON: CHEST SINGLE AP, July 21, 2017, 13:03. INDICATIONS : Patient states cough. MEDICAL HISTORY : Carcinoma, lung. SURGICAL HISTORY : None. ENCOUNTER: Initial ACUITY: 3 days PAIN SCORE: 0/10 LOCATION: Bilateral chest FINDINGS: A single view of the chest demonstrates the lungs to be symmetrically aerated without evidence of mas s, infiltrate or effusion. Linear scarring within the right midlung. Stable. The cardiomediastinal co ntours are unremarkable. Osseous structures are intact. CONCLUSION: 1. Stable scarring within the right midlung. 2. No acute cardiopulmonary disease. Diaz Medina Jr., MD on August 27, 2017 at 11:25 Board Certified Radiologist. This report was verified electronically.
[2017-08-27 12:08] LABS: AUTOMATED NEUTROPHIL # 4.8 TH/MM3 (1.8-7.7); BASOPHIL % 0.4 % (0.0-2.0); EOSINOPHIL # 0.1 TH/MM3 (0-0.4); EOSINOPHIL % 1.4 % (0.0-4.0); LYMPH % 18.1 % (9.0-44.0); LYMPHOCYTE # 1.2 TH/MM3 (1.0-4.8); MONO % 4.5 % (0.0-8.0); MONOCYTE # 0.3 TH/MM3 (0-0.9); NEUT % 75.6 % (16.0-70.0); PLATELET COUNT 238 TH/MM3 (150-450); WHITE BLOOD COUNT 6.4 TH/MM3 (4.0-11.0)
[2017-08-27 12:27] LABS: BICARBONATE 22.2 MEQ/L (21.0-32.0); CALCIUM 8.8 MG/DL (8.5-10.1); CREATININE 0.64 MG/DL (0.50-1.00)
[2017-08-27] MEDS ORDERED: NORC5TAB PO (13:13)
== END 2017-08-27 13:35 | disposition home or self-care (01) ==
LOC: NEPD 10:05
DX: R09.89 Other specified symptoms and signs involving the circulatory and respiratory systems (principal); R07.1 Chest pain on breathing; R05 Cough; R09.1 Pleurisy; I10 Essential (primary) hypertension; B20 Human immunodeficiency virus [HIV] disease; Z79.01 Long term (current) use of anticoagulants; Z85.118 Personal history of other malignant neoplasm of bronchus and lung
CPT/HCPCS: 71045; 80048; 85025; 94150; 99284

== ENCOUNTER 2018-05-29 16:39 | Observation (INO) ==
[2018-05-29] MEDS ORDERED: Sodium Chlor 0.9% Inj 500 ML IV.SIG ONE (18:06)
--- NOTE | 2018-05-29 18:09 | ED ---
HPI General Chief Complaint: Chest Pain Stated Complaint: Respiratory, CA patient Time Seen by Provider: 05/29/18 17:55 Source: patient Mode of arrival: ambulatory Limitations: no limitations History of Present Illness HPI narrative: 43-year-old female with PMH of HTN, lung CA, HIV last CD4 count 325 earlier this summer, on Pradaxa presents to the ED for evaluation of 3 days history of shortness of breath. Gradual onset. Patient endorses occasional dry cough. She states that this afternoon she began to experience sudden substernal chest pain. Pain is described as heaviness. She endorses accompanying palpitations. She denies diaphoresis, nausea, vomiting. On presentation she endorses compliance with her daily medications. She denies recent history of fever, chills, nausea, vomiting, changes in bowel habits, dysuria, hematuria, back pain or weakness of the extremities. No treatment attempted before arrival. Related Data Allergies Allergy/AdvReac Type Severity Reaction Status Date / Time No Known Allergies Allergy Unknown Uncoded 08/27/17 11:07 [facility] Medical History Medical History Anxiety (Acute) Aortic thrombus (Acute) Depression (Acute) HIV (human immunodeficiency virus infection) (Acute) Hypertension (Acute) Lung cancer (Acute) Social History Social History Second Hand Smoke Exposure: No Smoking Status: Former smoker How Often Do You Have a Drink Containing Alcohol: Never Recent Travel in [facility] within the Last 8 Weeks: No Recent Out of Country Travel within the Last 8 Weeks: No Immunization History Tetanus Immunization: <5 Years Course Initial Documented Vital Signs Temperature 99.2 F 05/29/18 17:12 Pulse Rate 125 H 05/29/18 17:12 Respiratory Rate 20 05/29/18 17:12 Blood Pressure 138/81 05/29/18 17:12 Pulse Oximetry 98 05/29/18 17:12 Last Documented Vital Signs Temperature 99.2 F 05/29/18 17:12 Pulse Rate 87 05/29/18 20:07 Respiratory Rate 19 05/29/18 20:07 Blood Pressure 138/82 05/29/18 20:07 Pulse Oximetry 100 05/29/18 20:07 Medical Decision Making RADHA Attestation RADHA supervised visit: Yes Attestation: I, Dr. Wilkerson, have reviewed the advance practice practitioner's documentation and am in agreement, met with the patient face to face, made the diagnosis, and the medical decision making was done by me. *My assessment and Findings: This is a patient with a history of hypertension as well as lung cancer and HIV who comes in with a chief complaint of chest discomfort which started today. Her initial workup in the emergency department has been negative. She has been admitted to the chest pain center for further evaluation. Please see Martha Carvalho PA-C's note for a more detailed H&P, final diagnosis and disposition MDM Narrative Medical decision making narrative: 43-year-old female with PMH of HTN, lung CA , HIV last CD4 count 325 earlier this summer, on Pradaxa presents to the ED for evaluation of 3 days history of shortness of breath. She states that this afternoon she began to experience sudden substernal chest pain. Patient is tachycardic with a rate of 125 on presentation. BP 138/81. O2 sats 99% on room air. Physical exam reveals nontoxic appearing -[place] female in no acute distress. No appreciable M/R/G. Lungs sounds mildly diminished diffusely. No lower extremity edema. Patient was administered DuoNeb's x2. CBC and CMP without concerning abnormalities. EKG with no acute changes, troponin negative x1. CXR with no acute CP disease. Stable right midlung scarring noted. CTA without evidence of PE. There is a platelike consolidation in the right lower lobe, unchanged from previous imaging. Enlarged mediastinal and hilar lymph nodes that are unchanged. I discussed the results of the workup with the patient. I recommended admission to the chest pain center. Patient is agreeable to this plan. Please see chest pain center notes for disposition. Medical Screen Exam Complete: Yes Emergency Medical Condition: Yes Differential Diagnosis Differential Diagnosis: PE versus lung CA versus ACS versus PNA versus other Lab Data Result diagrams: 05/29/18 18:07 05/29/18 18:07 Lab Results 05/29/18 05/29/18 05/29/18 Range/Units 16:07 18:07 18:07 WBC 4.0 (4.0-11.0) th/mm3 RBC 4.15 (4.00-5.30) mil/mm3 Hgb 14.6 (11.6-15.3) gm/dL Hct 41.5 (35.0-46.0) % MCV 100.0 (80.0-100.0) fL MCH 35.2 H (27.0-34.0) pg MCHC 35.2 (32.0-36.0) % RDW 16.5 (11.6-17.2) % Plt Count 250 (150-450) th/mm3 MPV 8.3 (7.0-11.0) fL Neut % (Auto) 44.1 (16.0-70.0) % Lymph % (Auto) 46.2 H (9.0-44.0) % Hanson % (Auto) 7.7 (0.0-8.0) % Eos % (Auto) 1.4 (0.0-4.0) % Baso % (Auto) 0.6 (0.0-2.0) % Neut # (Auto) 1.7 L (1.8-7.7) th/mm3 Lymph # (Auto) 1.8 (1.0-4.8) th/mm3 Hanson # (Auto) 0.3 (0.0-0.9) th/mm3 Eos # (Auto) 0.1 (0.0-0.4) th/mm3 Baso # (Auto) 0.0 (0.0-0.2) th/mm3 WBC Differential . Differential Comment Auto diff final PT 11.0 (9.8-11.6) sec INR 1.1 Ratio Sodium (136-145) meq/L Potassium (3.5-5.1) meq/L Chloride (98-107) meq/L Carbon Dioxide (21.0-32.0) meq/L Anion Gap (5-15) meq/L BUN (7-18) mg/dL Creatinine (0.50-1.00) mg/dL Estimated GFR (>89) mL/min Random Glucose (74-106) mg/dL Lactic Acid 1.3 (0.4-2.0) mmol/L Calcium (8.5-10.1) mg/dL Total Bilirubin (0.2-1.0) mg/dL AST (15-37) U/L ALT (10-53) U/L Alkaline Phosphatase (45-117) U/L Troponin I (0.02-0.05) ng/mL B-Natriuretic Peptide (0-100) pg/mL Total Protein (6.4-8.2) g/dL Albumin (3.4-5.0) g/dL 05/29/18 05/29/18 Range/Units 18:07 18:07 WBC (4.0-11.0) th/mm3 RBC (4.00-5.30) mil/mm3 Hgb (11.6-15.3) gm/dL Hct (35.0-46.0) % MCV (80.0-100.0) fL MCH (27.0-34.0) pg MCHC (32.0-36.0) % RDW (11.6-17.2) % Plt Count (150-450) th/mm3 MPV (7.0-11.0) fL Neut % (Auto) (16.0-70.0) % Lymph % (Auto) (9.0-44.0) % Hanson % (Auto) (0.0-8.0) % Eos % (Auto) (0.0-4.0) % Baso % (Auto) (0.0-2.0) % Neut # (Auto) (1.8-7.7) th/mm3 Lymph # (Auto) (1.0-4.8) th/mm3 Hanson # (Auto) (0.0-0.9) th/mm3 Eos # (Auto) (0.0-0.4) th/mm3 Baso # (Auto) (0.0-0.2) th/mm3 WBC Differential Differential Comment PT (9.8-11.6) sec INR Ratio Sodium 141 (136-145) meq/L Potassium 4.0 (3.5-5.1) meq/L Chloride 112 H (98-107) meq/L Carbon Dioxide 21.3 (21.0-32.0) meq/L Anion Gap 8 (5-15) meq/L BUN 13 (7-18) mg/dL Creatinine 0.81 (0.50-1.00) mg/dL Estimated GFR Greater than 89 (>89) mL/min Random Glucose 95 (74-106) mg/dL Lactic Acid (0.4-2.0) mmol/L Calcium 8.9 (8.5-10.1) mg/dL Total Bilirubin 0.4 (0.2-1.0) mg/dL AST 25 (15-37) U/L ALT 30 (10-53) U/L Alkaline Phosphatase 139 H (45-117) U/L Troponin I Less than 0.02 L (0.02-0.05) ng/mL B-Natriuretic Peptide 3 (0-100) pg/mL Total Protein 8.1 (6.4-8.2) g/dL Albumin 4.0 (3.4-5.0) g/dL Imaging Data Radiologist's impression: Chest X-Ray 05/29/18 18:04 CONCLUSION: No evidence of acute cardiopulmonary disease. Stable right midlung scarring. Chest CTA 05/29/18 18:05 CONCLUSION: 1. No pulmonary embolus. 2. Platelike consolidation in the right lower lobe is without appreciable change. Also some mild, nonmasslike scarring posteriorly of the right lung base. 3. Upper limits of normal to slightly enlarged mediastinal and right hilar lymph nodes are unchanged. ECG Data EKG Prior to Arrival: No Attestation: I personally reviewed and interpreted this ECG as follows: Discharge Plan Discharge Disposition Patient Disposition: ED Admit(ED Internal Use Only) Discharge Order Discharge Orders: ED Use Only Admit Order (Routine); Ordered 05/29/18 Ordered By: Martha Carvalho Physicians Team ED Provider: Eva Wilkerson ED Midlevel Provider: Martha Carvalho Primary Care Provider: Primary Care Kassandra,Amelia Attending Provider: Pavel Tavarez Status ED Status: Admitted Observation Patient
[2018-05-29 18:26] LABS: Baso % (Auto) 0.6 % (0.0-2.0); Eos # (Auto) 0.1 th/mm3 (0.0-0.4); Eos % (Auto) 1.4 % (0.0-4.0); Hematocrit 41.5 % (35.0-46.0); Hemoglobin 14.6 gm/dL (11.6-15.3); Lymph # (Auto) 1.8 th/mm3 (1.0-4.8); Lymph % (Auto) 46.2 % (9.0-44.0); Mean Corpuscular HGB Conc 35.2 % (32.0-36.0); Mean Corpuscular Hemoglobin 35.2 pg (27.0-34.0); Mean Platelet Volume 8.3 fL (7.0-11.0); Mono # (Auto) 0.3 th/mm3 (0.0-0.9); Mono % (Auto) 7.7 % (0.0-8.0); Neut # (Auto) 1.7 th/mm3 (1.8-7.7); Neut % (Auto) 44.1 % (16.0-70.0); Platelet Count 250 th/mm3 (150-450); Red Blood Count 4.15 mil/mm3 (4.00-5.30); Red Cell Distribution Width 16.5 % (11.6-17.2)
[2018-05-29 18:28] LABS: INR 1.1 Ratio
--- NOTE | 2018-05-29 18:42 | XR ---
EXAM DATE: 05/29/2018 6:33 PM EST AGE/SEX: 43 years / Female INDICATIONS: Right sided chest pain for 3 days CLINICAL DATA: This is the patient's initial encounter. Patient reports that signs and symptoms have been present for 3 days and indicates a pain score of 8/10. MEDICAL/SURGICAL HISTORY: Carcinoma, lung. None. [place] [facility] [place] . FINDINGS: No infiltrate, effusion or pneumothorax demonstrated. Linear scarring in the right mid lung again not ed. Heart size stable, within normal limits. CONCLUSION: No evidence of acute cardiopulmonary disease. Stable right midlung scarring. Electronically signed by: Juma Blount MD 05/29/2018 6:40 PM EST
[2018-05-29 18:50] LABS: Alkaline Phosphatase 139 U/L (45-117); Total Protein 8.1 g/dL (6.4-8.2)
[2018-05-29 19:12] LABS: Alanine Aminotransferase 30 U/L (10-53); Anion Gap 8 meq/L (5-15); Aspartate Aminotransferase 25 U/L (15-37); Blood Urea Nitrogen 13 mg/dL (7-18); Calcium 8.9 mg/dL (8.5-10.1); Carbon Dioxide 21.3 meq/L (21.0-32.0); Chloride 112 meq/L (98-107); Glomerular Filtration Rate Greater Than 89 mL/min (>89); Glucose,Random 95 mg/dL (74-106); Sodium 141 meq/L (136-145)
--- NOTE | 2018-05-29 19:55 | CT ---
EXAM DATE: 05/29/2018 7:47 PM EST AGE/SEX: 43 years / Female INDICATIONS: Right sided chest pain shortness of breath CLINICAL DATA: This is the patient's initial encounter. Patient reports that signs and symptoms have been present for 1 day and indicates a pain score of 5/10. MEDICAL/SURGICAL HISTORY: HIV. Hypertension. Carcinoma, lung. Aortic thrombosis None. RADIATION DOSE: 6.0 CTDI (mGy) [place]PAR[place]: [facility] [place]/2017. [facility] [place] 08/25/2016. . TECHNIQUE: Volumetric scanning was performed using a multi-row detector CT scanner during bolus infu gelacio of 72 ml Omnipaque 350 (iohexol) nonionic water-soluble contrast as a single exam dose. The jitendra a was post processed with a variety of visualization algorithms including full volume maximum intensi ty projection and sliding thin slab reformation. Using automated exposure control and adjustment of the mA and/or kV according to patient size, radiation dose was kept as low as reasonably achievable t o obtain optimal diagnostic quality images. DICOM format image data is available electronically for review and comparison. FINDINGS: There is no pulmonary embolus. Platelike consolidation with air bronchograms again seen in the right lower lobe. There is focal scar ring posteriorly of the right base. No masslike opacities are demonstrated. No pleural effusion or pn eumothorax. Scattered mediastinal and right hilar lymph nodes measuring up to 12 mm in greatest short axis dimens ion are without appreciable change. Normal, stable heart size. CONCLUSION: 1. No pulmonary embolus. 2. Platelike consolidation in the right lower lobe is without appreciable change. Also some mild, no nmasslike scarring posteriorly of the right lung base. 3. Upper limits of normal to slightly enlarged mediastinal and right hilar lymph nodes are unchanged . Electronically signed by: Juma Blount MD 05/29/2018 7:54 PM EST
[2018-05-29 22:25] LABS: Creatine Kinase 65 U/L (26-192)
[2018-05-30 02:03] LABS: Creatine Kinase 68 U/L (26-192)
[2018-05-30] MEDS ORDERED: Acetaminophen 500 MG Tablet PO PRN (07:41)
--- NOTE | 2018-05-30 08:14 | P.HPCA ---
History of Present Illness Primary Care Physician: No Primary Care Physician Chief Complaint: Chest pain History of Present Illness: 43 year old female with history of lung cancer (in remission for 2 year after 5 radiation treatments), HIV positive, hypertension, GERD, anxiety, and depression presents to ER for further evaluation of nonexertional dyspnea and chest pain. Onset 3 days. Reports becoming short of breath with and without exertion. Does not hurt to take a deep breath. Endorses recent cold-like symptoms including sneezing and nasal congestion, denies fever, wheezing, sputum production, or cough. No precipitating factors. Relieving factors nebulizer to use at home and also nebulizer given in ER. In regards to chest pain, onset yesterday. Location substernal, describes as heaviness. Duration 2 hours with associated nausea and "belching." Also reports chronic right lower lung pain since the 2 years ago. Described as "like a rib is not in place." Reports being chronic issue, with an increase in severity lately. Last week reported relatively quick GI virus and included right lower abdominal pain and loose stools. This is since resolved. No current chest heaviness or dyspnea. Past cardiac testing None Social history Known hypertension. No known diabetes, hyperlipidemia, coronary artery disease. Former 1/2 pack daily smoker quit 1 year ago. No alcohol or recreational drug use. Family history Noncontributory for early onset cardiovascular disease. Father CABGx4 age 67 - Diagnosis (1) Chest pain of uncertain etiology (2) HIV (human immunodeficiency virus infection) (3) History of lung cancer (4) Hypertension (5) Elevated alkaline phosphatase level Review of Systems All other systems reviewed negative except as stated in HPI PMFSH - History History Provided By: Patient - Medical History Medical History: Medical History (Last Updated 05/30/18 @ 09:48 by DIANNA Kumar) Anxiety Aortic thrombus Depression GERD (gastroesophageal reflux disease) HIV (human immunodeficiency virus infection) Hypertension Lung cancer - Family History Family History: Family History (Last Updated 05/30/18 @ 09:49 by DIANNA Kumar) Father S/P CABG x 4 - Tobacco History Second Hand Smoke Exposure: Yes Tobacco Use In Past 30 Days: No Smoking Status: Former smoker Number of Pack Years (if former smoker): 12 - Alcohol History How Often Do You Have a Drink Containing Alcohol: Never - Substance Use History Substance History: No History of Abuse - Travel History Recent Travel in the [place] Within the Last 8 Weeks: No Recent Travel Out of the Country Within the Last 8 Weeks: No - Immunization History Tetanus Immunization: <5 Years Medications and Allergies Active Medications: Active Medications Acetaminophen (Tylenol) 500 mg PO Q4H PRN PRN Reason: HEADACHE Nitroglycerin (Nitrostat Sl) 0.4 mg SL Q5M PRN PRN Reason: CHEST PAIN Ondansetron HCl (Zofran Inj) 4 mg IV.PUSH Q6H PRN PRN Reason: NAUSEA Sodium Chloride (Ns Flush) 2 ml IV.FLUSH BID PEBBLES Last Admin: 05/29/18 22:12 Dose: 2 ml Sodium Chloride (Ns Flush) 2 ml IV.FLUSH PRN PRN PRN Reason: FLUSH AFTER USING IV ACCESS Allergies Allergy/AdvReac Type Severity Reaction Status Date / Time No Known Allergies Allergy Unknown Uncoded 08/27/17 11:07 Exam Vital signs: Vital Signs 05/29/18 17:12 05/29/18 18:00 05/29/18 19:58 Temperature 99.2 F Pulse Rate 125 H 105 H 98 H Respiratory Rate 20 18 20 Blood Pressure 138/81 131/99 H Pulse Oximetry 98 99 05/29/18 20:07 05/29/18 21:19 05/30/18 00:24 Temperature 98.4 F 98.4 F Pulse Rate 87 82 82 Respiratory Rate 19 18 18 Blood Pressure 138/82 109/62 108/58 L Pulse Oximetry 100 97 98 05/30/18 04:00 05/30/18 07:28 Temperature 98.4 F 98.1 F Pulse Rate 91 H 86 Respiratory Rate 18 16 Blood Pressure 110/73 112/70 Pulse Oximetry 98 98 Intake & Output 05/29/18 05/30/18 05/30/18 18:59 06:59 18:59 Intake Total 500 / 500 Balance 500 / 500 Weight 61.235 kg 61.235 kg Intake: IV 500 / 500 NS Inj 500 ML @ Wide Open IV. 500 / 500 SIG BOLUS ONE Rx#:[id number] Other: Date of Last Bowel Movement 05/29/18 Weight On Admission 61.235 kg Narrative: GENERAL: Alert WN, WD, NAD, pleasant, thin -[place] female HEAD: NC, AT EYES: Sclera clear, conjunctiva without injection, pupils equal and round ENT: Mucous membranes pink and moist, no nasal discharge or bleeding NECK: Supple, no masses, trachea midline CV: RRR, without murmur, rub, gallop, no JVD, S1-S2. left anterior chest wall tender to palpation. RESP: Diminished lungs throughout bilateral, no crackles, wheeze, rhonchi, symmetrical chest rise, nonlabored, able to speak in full sentences ABD: Right upper quad tender with palpation, soft, ND, no masses, positive bowel tones BACK: No scoliosis EXT: Pulses +2x4, no dependent edema MS: Normal tone x4 extremities, nontender, no obvious deformities, full range of motion NEURO: Motor strength 5/5 PSYCH: A+O x3, pleasant affect, appropriate speech, mood, insight and judgment SKIN: Normal turgor, normal texture, no lesions, no rashes, sluggish capillary refill Results 05/29/18 18:07 05/29/18 18:07 Cardiac Enzymes 05/29/18 05/29/18 05/29/18 Range/Units 18:07 18:07 21:24 AST 25 (15-37) U/L Troponin I Less than 0.02 L Less than 0.02 L (0.02-0.05) ng/mL B-Natriuretic Peptide 3 (0-100) pg/mL 05/30/18 Range/Units 01:20 AST (15-37) U/L Troponin I Less than 0.02 L (0.02-0.05) ng/mL B-Natriuretic Peptide (0-100) pg/mL Coagulation 05/29/18 05/29/18 Range/Units 18:07 18:07 PT 11.0 (9.8-11.6) sec B-Natriuretic Peptide 3 (0-100) pg/mL CBC 05/29/18 Range/Units 18:07 WBC 4.0 (4.0-11.0) th/mm3 RBC 4.15 (4.00-5.30) mil/mm3 Hgb 14.6 (11.6-15.3) gm/dL Hct 41.5 (35.0-46.0) % Plt Count 250 (150-450) th/mm3 Neut # (Auto) 1.7 L (1.8-7.7) th/mm3 Lymph # (Auto) 1.8 (1.0-4.8) th/mm3 [place] # (Auto) 0.3 (0.0-0.9) th/mm3 Eos # (Auto) 0.1 (0.0-0.4) th/mm3 Baso # (Auto) 0.0 (0.0-0.2) th/mm3 Comprehensive Metabolic Panel 05/29/18 Range/Units 18:07 Sodium 141 (136-145) meq/L Potassium 4.0 (3.5-5.1) meq/L Chloride 112 H (98-107) meq/L Carbon Dioxide 21.3 (21.0-32.0) meq/L BUN 13 (7-18) mg/dL Creatinine 0.81 (0.50-1.00) mg/dL Calcium 8.9 (8.5-10.1) mg/dL AST 25 (15-37) U/L ALT 30 (10-53) U/L Alkaline Phosphatase 139 H (45-117) U/L Total Protein 8.1 (6.4-8.2) g/dL Albumin 4.0 (3.4-5.0) g/dL Intake and Output 05/29/18 05/30/18 05/30/18 22:59 06:59 14:59 Intake Total 500 / 500 Balance 500 / 500 Intake: IV 500 / 500 NS Inj 500 ML @ Wide Open IV. 500 / 500 SIG BOLUS ONE Rx#:[id number] Other: Date of Last Bowel Movement 05/29/18 Weight 61.235 kg Weight On Admission 61.235 kg - Imaging and Cardiology Imaging: Impressions Chest X-Ray 05/29/18 18:04 CONCLUSION: No evidence of acute cardiopulmonary disease. Stable right midlung scarring. Chest CTA 05/29/18 18:05 CONCLUSION: 1. No pulmonary embolus. 2. Platelike consolidation in the right lower lobe is without appreciable change. Also some mild, nonmasslike scarring posteriorly of the right lung base. 3. Upper limits of normal to slightly enlarged mediastinal and right hilar lymph nodes are unchanged. EKG interpretations - EKG EKG results cardiology: sinus rhythm, normal axis, normal ST/T (criteria for LVH ) Caprini VTE Risk Assessment Caprini VTE Risk Assessment: No/Low Risk (score <= 1) Caprini Risk Assessment Model: Point Value = 1 Point Value = 2 Point Value = 3 Point Value = 5 Age 41-60 Minor surgery BMI > 25 kg/m2 Swollen legs Varicose veins or History of unexplained or recurrent spontaneous Oral contraceptives or hormone replacement Sepsis (< 1 month) Serious lung disease, including pneumonia (< 1 month) Abnormal pulmonary function Acute myocardial infarction Congestive heart failure (< 1 month) History of inflammatory bowel disease Medical patient at bed rest Age 61-74 Arthroscopic surgery Major open surgery (> 45 min) Laparoscopic surgery (> 45 min) Malignancy Confined to bed (> 72 hours) Immobilizing plaster cast Central venous access Age >= 75 History of VTE Family history of VTE Factor V Leiden Prothrombin [id number] Lupus anticoagulant Anticardiolipin antibodies Elevated serum homocysteine Heparin-induced thrombocytopenia Other congenital or acquired thrombophilia Stroke (< 1 month) Elective arthroplasty Hip, pelvis, or leg fracture Acute spinal cord injury (< 1 month) Prophylaxis Regimen: Total Risk Factor Score Risk Level Prophylaxis Regimen 0-1 Low Early ambulation 2 Moderate Order ONE of the following: *Sequential Compression Device (SCD) *Heparin 5000 units SQ BID 3-4 Higher Order ONE of the following medications: *Heparin 5000 units SQ TID *Enoxaparin/Lovenox 40 mg SQ daily (WT < 150 kg, CrCl > 30 mL/min) *Enoxaparin/Lovenox 30 mg SQ daily (WT < 150 kg, CrCl > 10-29 mL/min) *Enoxaparin/Lovenox 30 mg SQ BID (WT < 150 kg, CrCl > 30 mL/min) AND/OR *Sequential Compression Device (SCD) 5 or more Highest Order ONE of the following medications: *Heparin 5000 units SQ TID (Preferred with Epidurals) *Enoxaparin/Lovenox 40 mg SQ daily (WT < 150 kg, CrCl > 30 mL/min) *Enoxaparin/Lovenox 30 mg SQ daily (WT < 150 kg, CrCl > 10-29 mL/min) *Enoxaparin/Lovenox 30 mg SQ BID (WT < 150 kg, CrCl > 30 mL/min) AND *Sequential Compression Device (SCD) Assessment and Plan - Assessment (1) Chest pain of uncertain etiology Code(s): R07.89 - Other chest pain Status: Acute Plan: Admitted to chest pain center. ACS ruled out 3 sets of EKGs and cardiac enzymes. Monitor on telemetry overnight. Will be seen and evaluated by Dr. Gene Lyons. Discussed likely cardiac stressing later this morning, due to risks factors. Discomfort atypical for cardiac Chest xray and Chest CT reviewed suggesting mild non-impressive scarring of right lower lobe however due to history of lung cancer and discomfort encouraged to continue working with health department for follow up with oncologist. (2) HIV (human immunodeficiency virus infection) Code(s): B20 - Human immunodeficiency virus [HIV] disease Status: Chronic Plan: Continue antivirals once updated. (3) History of lung cancer Code(s): Z85.118 - Personal history of other malignant neoplasm of bronchus and lung Status: Chronic Plan: Follow up with oncologist, encouraged to request health department to refer her back to oncologist. (4) Hypertension Code(s): I10 - Essential (primary) hypertension Status: Chronic Plan: Continue home blood pressure medication once updated in EMR. Continue to monitor. (5) Elevated alkaline phosphatase level Code(s): R74.8 - Abnormal levels of other serum enzymes Status: Acute Plan: Alkaline phosphatase 139, findings with reported chronic abdominal discomfort instructed to follow up with primary care provider. H&P: Quality - VTE Deep Vein Thrombosis/Pulmonary Embolism Present on Admission: No (4) Hypertension Qualifiers: Hypertension type: unspecified Qualified Code(s): I10 - Essential (primary) hypertension
[2018-05-30] MEDS ORDERED: Ketorolac Inj 30 MG/ML (IVP) Vial IV.PUSH ONE (09:00)
--- NOTE | 2018-05-30 10:17 | P.PNCA ---
Subjective Interval history: This 43-year-old lady was seen and evaluated by the nurse practitioner and then discussed. She was then seen and examined personally. I am in agreement with the history as documented with the addition that this lady's adenocarcinoma of the right lung was treated through the [facility] with only 5 radiation treatments. They told her she was not a candidate for chemotherapy or surgery because of her underlying HIV status. Should also be noted that she has had recent weight loss with no change in appetite. When she requested follow-up at the [facility] oncology Center recently she was denied because she had no insurance. She is seeking care through the public health department in [place] at the current time. Her chest pain was right lung radiating to the mid chest this along with her history of shortness of breath is suggestive of recurrent pulmonary disease. She also complains of some right upper quadrant abdominal pain. Her evaluation for chest pain center protocol has been negative for cardiac disease but has revealed changes in the base of the right lung and mediastinal lymph nodes which are upper limits of normal and suggestive. She also was found to have an elevated alkaline phosphatase at 139. She will be further evaluated with a Lexiscan but it is anticipated that this will be negative. If negative she will be discharged further follow-up through the [facility] department with the recommendation should be referred back to [facility] for further oncologic evaluation and treatment. Medications and Allergies Active Medications: Active Medications Acetaminophen (Tylenol) 500 mg PO Q4H PRN PRN Reason: HEADACHE Nitroglycerin (Nitrostat Sl) 0.4 mg SL Q5M PRN PRN Reason: CHEST PAIN Ondansetron HCl (Zofran Inj) 4 mg IV.PUSH Q6H PRN PRN Reason: NAUSEA Sodium Chloride (Ns Flush) 2 ml IV.FLUSH BID PEBBLES Last Admin: 05/30/18 08:54 Dose: 2 ml Sodium Chloride (Ns Flush) 2 ml IV.FLUSH PRN PRN PRN Reason: FLUSH AFTER USING IV ACCESS Allergies Allergy/AdvReac Type Severity Reaction Status Date / Time No Known Allergies Allergy Unknown Uncoded 08/27/17 11:07 Physical Exam Vital signs: Vital Signs 05/29/18 17:12 05/29/18 18:00 05/29/18 19:58 Temperature 99.2 F Pulse Rate 125 H 105 H 98 H Respiratory Rate 20 18 20 Blood Pressure 138/81 131/99 H Pulse Oximetry 98 99 05/29/18 20:07 05/29/18 21:19 05/30/18 00:24 Temperature 98.4 F 98.4 F Pulse Rate 87 82 82 Respiratory Rate 19 18 18 Blood Pressure 138/82 109/62 108/58 L Pulse Oximetry 100 97 98 05/30/18 04:00 05/30/18 07:28 Temperature 98.4 F 98.1 F Pulse Rate 91 H 86 Respiratory Rate 18 16 Blood Pressure 110/73 112/70 Pulse Oximetry 98 98 Intake & Output 05/29/18 05/30/18 05/30/18 18:59 06:59 18:59 Intake Total 500 / 500 Balance 500 / 500 Weight 61.235 kg 61.235 kg Intake: IV 500 / 500 NS Inj 500 ML @ Wide Open IV. 500 / 500 SIG BOLUS ONE Rx#:[id number] Other: Date of Last Bowel Movement 05/29/18 Weight On Admission 61.235 kg Narrative: I am in agreement with the documented physical findings with the addition that the patient demonstrated significant tenderness in the mid and right upper quadrant of the abdomen during my examination. There was no guarding or rebound and no hepatosplenomegaly noted. Cardiac evaluation was normal Results 05/29/18 18:07 05/29/18 18:07 Cardiac Enzymes 05/29/18 05/29/18 05/29/18 Range/Units 18:07 18:07 21:24 AST 25 (15-37) U/L Troponin I Less than 0.02 L Less than 0.02 L (0.02-0.05) ng/mL B-Natriuretic Peptide 3 (0-100) pg/mL 05/30/18 Range/Units 01:20 AST (15-37) U/L Troponin I Less than 0.02 L (0.02-0.05) ng/mL B-Natriuretic Peptide (0-100) pg/mL Coagulation 05/29/18 05/29/18 Range/Units 18:07 18:07 PT 11.0 (9.8-11.6) sec B-Natriuretic Peptide 3 (0-100) pg/mL CBC 05/29/18 Range/Units 18:07 WBC 4.0 (4.0-11.0) th/mm3 RBC 4.15 (4.00-5.30) mil/mm3 Hgb 14.6 (11.6-15.3) gm/dL Hct 41.5 (35.0-46.0) % Plt Count 250 (150-450) th/mm3 Neut # (Auto) 1.7 L (1.8-7.7) th/mm3 Lymph # (Auto) 1.8 (1.0-4.8) th/mm3 [place] # (Auto) 0.3 (0.0-0.9) th/mm3 Eos # (Auto) 0.1 (0.0-0.4) th/mm3 Baso # (Auto) 0.0 (0.0-0.2) th/mm3 Comprehensive Metabolic Panel 05/29/18 Range/Units 18:07 Sodium 141 (136-145) meq/L Potassium 4.0 (3.5-5.1) meq/L Chloride 112 H (98-107) meq/L Carbon Dioxide 21.3 (21.0-32.0) meq/L BUN 13 (7-18) mg/dL Creatinine 0.81 (0.50-1.00) mg/dL Calcium 8.9 (8.5-10.1) mg/dL AST 25 (15-37) U/L ALT 30 (10-53) U/L Alkaline Phosphatase 139 H (45-117) U/L Total Protein 8.1 (6.4-8.2) g/dL Albumin 4.0 (3.4-5.0) g/dL Intake and Output 05/29/18 05/30/18 05/30/18 22:59 06:59 14:59 Intake Total 500 / 500 Balance 500 / 500 Intake: IV 500 / 500 NS Inj 500 ML @ Wide Open IV. 500 / 500 SIG BOLUS ONE Rx#:[id number] Other: Date of Last Bowel Movement 05/29/18 Weight 61.235 kg Weight On Admission 61.235 kg - Imaging and Cardiology Imaging: Impressions Chest X-Ray 05/29/18 18:04 CONCLUSION: No evidence of acute cardiopulmonary disease. Stable right midlung scarring. Chest CTA 05/29/18 18:05 CONCLUSION: 1. No pulmonary embolus. 2. Platelike consolidation in the right lower lobe is without appreciable change. Also some mild, nonmasslike scarring posteriorly of the right lung base. 3. Upper limits of normal to slightly enlarged mediastinal and right hilar lymph nodes are unchanged. Assessment and Plan - Assessment (1) Chest pain of uncertain etiology Code(s): R07.89 - Other chest pain Status: Acute Plan: Admitted to chest pain center. ACS ruled out 3 sets of EKGs and cardiac enzymes. Monitor on telemetry overnight. Will be seen and evaluated by Dr. Gene Lyons. Discussed likely cardiac stressing later this morning, due to risks factors. Discomfort atypical for cardiac Chest xray and Chest CT reviewed suggesting mild non-impressive scarring of right lower lobe however due to history of lung cancer and discomfort encouraged to continue working with health department for follow up with oncologist. Addendum by Dr. Lyons Am in agreement with the discussion above with the emphasis that she needs to be referred back to [facility] oncology (2) HIV (human immunodeficiency virus infection) Code(s): B20 - Human immunodeficiency virus [HIV] disease Status: Chronic Plan: Continue antivirals once updated. (3) History of lung cancer Code(s): Z85.118 - Personal history of other malignant neoplasm of bronchus and lung Status: Chronic Plan: Follow up with oncologist, encouraged to request health department to refer her back to oncologist. (4) Hypertension Code(s): I10 - Essential (primary) hypertension Status: Chronic Plan: Continue home blood pressure medication once updated in EMR. Continue to monitor. (5) Elevated alkaline phosphatase level Code(s): R74.8 - Abnormal levels of other serum enzymes Status: Acute Plan: Alkaline phosphatase 139, findings with reported chronic abdominal discomfort instructed to follow up with primary care provider. (4) Hypertension Qualifiers: Hypertension type: unspecified Qualified Code(s): I10 - Essential (primary) hypertension
--- NOTE | 2018-05-30 11:53 | ECG ---
Date Performed: 05/29/2018 Time Performed: 18:02:24 PTAGE: 43 years EKG: Sinus rhythm WITH SHORT OH INTERVAL MINIMAL VOLTAGE CRITERIA FOR LVH, CONSIDER NORMAL VARIANT BORDERLINE ECG Rate has slowed but otherwise no change PREVIOUS TRACING : 06/27/2017 10.07 DOCTOR: Gene Lyons Interpretating Date/Time 05/30/2018 11:52:13
[2018-05-30] MEDS ORDERED: Regadenoson Inj 0.4 MG/5 ML Syringe IV.PUSH ONE (12:34)
--- NOTE | 2018-05-30 13:59 | NM ---
EXAM DATE: 05/30/2018 1:41 PM EST AGE/SEX: 43 years / Female INDICATIONS:Angina. . Dyspnea and chest pain. CLINICAL DATA: This is the patient's initial encounter. Patient reports that signs and symptoms have been present for 3 days and indicates a pain score of 2/10. MEDICAL/SURGICAL HISTORY: Gastroesophageal reflux disease. Hypertension. HIV. Lung cancer, h istory of aortic thrombus. Tubal ligation. COMPARISON: No prior exams available for comparison. DOSE: 8.7 mCi Tc 99m Myoview at rest 26.3 mCi [id number] at stress 0.4 mg Lexiscan STRESS SYMPTOMS: None. EJECTION FRACTION: 60 % TECHNIQUE: The patient underwent pharmacologic stress with infusion of prescribed dose. Continuous ECG tracing was monitored during stress. Gated SPECT imaging was performed after stress and conventi onal SPECT imaging was performed at rest. The examination was performed on a SPECT/CT scanner, both attenuation and non-corrected datasets were reviewed. FINDINGS: Distribution: The maximum perfused segment at stress is in the inferior wall. Perfusion Study: The pattern of perfusion at stress is within normal limits. No fixed or reversib le perfusion defect is identified. Gated Study: There are intact wall motion and wall thickening without hypokinetic or dyskinetic segm ents. The ejection fraction is calculated at 60%. RISK CATEGORY: Low (<1% Annual Motality Rate) CONCLUSION: 1. No left ventricle perfusion abnormality is identified. 2. Normal left ventricle wall motion and ejection fraction. Electronically signed by: Juma Gutierrez MD 05/30/2018 1:58 PM EST
[2018-05-30] MEDS ORDERED: dilTIAZem CD 180 MG Capsule PO SCH (16:00)
[2018-05-30] MEDS ORDERED: Sertraline 100 MG Tablet PO SCH (16:00)
[2018-05-30] MEDS ORDERED: Tiotropium Bromide 18 MCG/ACT Inhaler INH SCH (16:00)
[2018-05-30] MEDS ORDERED: Gabapentin 300 MG Capsule PO SCH (21:00)
[2018-05-31] MEDS ORDERED: DOLUTEGRAVIR PO SCH (09:00)
[2018-05-31] MEDS ORDERED: Pantoprazole Sodium 20 MG DR Tablet PO SCH (09:00)
[2018-05-31] MEDS ORDERED: EMTRICITABINE TENOFOVIR ALAFEN PO SCH (09:00)
--- NOTE | 2018-05-31 14:52 | TR ---
Date Performed: 05/30/2018 Time Performed: 12:38:45 DOCTOR: Pavel Tavarez DRUG LIST: CLINICAL HISTORY: REASON FOR TEST: REASON FOR ENDING: OBSERVATION: CONCLUSION: COMMENTS: Lexiscan stress test was performed under standard four minute protocol. Radionuclide was injected one minute prior to ending the test. No electrocardiographic abormalities were present t o suggest ischemia. Nuclear imaging and interpretation are pending.
== END 2018-05-30 16:26 | disposition home or self-care (01) ==
LOC: NEPC 16:39 → NEDA 16:39 → NEPFCDU 21:09
PROVIDERS: ADMIT Internal Medicine Cardiovascular Disease; ATTEND Internal Medicine Cardiovascular Disease
DX: K21.9 Gastro-esophageal reflux disease without esophagitis; B20 Human immunodeficiency virus [HIV] disease; R94.31 Abnormal electrocardiogram [ECG] [EKG]; F32.9 Major depressive disorder, single episode, unspecified; Z87.891 Personal history of nicotine dependence; C34.90 Malignant neoplasm of unspecified part of unspecified bronchus or lung; F41.9 Anxiety disorder, unspecified; R07.9 Chest pain, unspecified; I10 Essential (primary) hypertension